=== PATIENT | female | born 1965 | race Caucasian/White ===

== ENCOUNTER 2017-07-30 12:17 | Emergency (ER) | payer MEDICARE, MEDICAID, SELFPAY ==
[2017-07-30 12:18] VITALS: BP 75/49; PULSE 59; RESP 14; TEMP 36.6; O2SAT 94; BMI 33.8
--- NOTE | 2017-07-30 12:44 | EKG12_ITS ---
Test Reason : LOW BP Blood Pressure : / mmHG Vent. Rate : 061 BPM Atrial Rate : 057 BPM P-R Int : 000 ms QRS Dur : 082 ms QT Int : 466 ms P-R-T Axes : 000 -14 040 degrees QTc Int : 469 ms Atrial fibrillation Abnormal ECG Confirmed by KILEY WAITE ([id number]), desk editor ROSEMARY JIMENEZ ([id number] on 08/13/2017 5:19:05 PM Referred By: PAUL/TEODORA Confirmed By:KILEY WAITE
[2017-07-30] MEDS: 0.9% Normal Saline 1,000 ML 1000 ML IV (12:52)
[2017-07-30 13:05] LABS: Absolute Lymphocyte Count 2.31 X10^3/ul (0.83-4.51); Absolute Neutrophil Count 10.7 X10^3/uL (2.0-7.7); Basophil# 0.03 X10^3/uL; Basophil% 0.2 % (0-1); Eosinophils% 0.7 % (0-5); Hematocrit 38.9 % (37-47); Hemoglobin 12.4 g/dl (12.0-15.0); Lymphocyte # 2.31 X10^3/ul (4.0); Mean Corp Hgb Conc 31.9 g/gl (32-36); Mean Corpuscular Hgb 27.4 pg (27.0-32.0); Mean Corpuscular Volume 86.1 fL (81-99); Mean Platelet Vol. 10.8 fl (6.2-12.0); Monocyte# 1.21 X10^3/uL; Monocyte% 8.4 % (0-10); Neutrophil # 10.69 X10^3/uL (2.7-7.7); Neutrophil % 74.2 % (47-70); POSITIVE COUNT NO; POSITIVE DIFFERENTIAL NO; POSITIVE MORPHOLOGY NO; Platelet Count 205 K/mm3 (150-450); RBC Distribution Width CV 14.5 % (11.6-14.6); RBC Distribution Width SD 44.8 fl (35.1-43.9); Red Blood Count 4.52 M/mm3 (4.2-5.4); White Blood Count 14.4 K/mm3 (4.4-11.0)
[2017-07-30 13:12] LABS: Anion Gap 10 (5-15); BUN 30 mg/dL (7-18); BUN/Creat Ratio 18.9 RATIO (10-20); Calcium,Total 8.3 mg/dL (8.5-10.1); Chloride 108 mmol/L (98-107); Creatinine, Serum 1.59 mg/dL (0.55-1.02); EST Glomerular Filtration Rate 36 mL/min (>60); Est Glom Filt Rate - Afr Amer 44 mL/min (>60); Estimated Creatinine Clearance 32.73 ml/min; Glucose 157 mg/dL (74-106); Potassium 3.7 mmol/L (3.5-5.1); Sodium Level 139 mmol/L (136-145)
[2017-07-30 13:36] LABS: Mucous, Urine 0 SEEN /hpf (<or=2+); Red Blood Cells-Urine 0 SEEN /hpf (0-5); White Blood Cells 0 SEEN /hpf (0-5)
[2017-07-30 13:38] LABS: Color, Urine Yellow (Yellow); Glucose, Dipstick Normal (Normal); Ketone-Dipstick Negative (Negative); Leukocyte Esterase-Dipstick 25 /ul (Negative); Nitrite-Dipstick Negative (Negative); Occult Blood-Urine 10 /ul (Negative); Protein-Dipstick Negative (Negative); Urine Bilirubin Dipstick Negative (Negative); Urine Clarity Sl. Cloudy (Clear); Urine Urobilinogen Normal (Normal)
[2017-07-30 13:42] VITALS: BP 96/53; PULSE 58; RESP 16
[2017-07-30] MEDS: 0.9% Normal Saline 1,000 ML 150 ML IV (13:42)
[2017-07-30 13:45] LABS: Bacteria 3+ /hpf (None Seen); Squamous Epithelial Cells - UA 0-5 SEEN /hpf (5-10)
--- NOTE | 2017-07-30 14:24 | NURSING ---
DR CARPENTER, [facility]. [phone]
[2017-07-30] MEDS: 0.9% Normal Saline 1,000 ML 999 ML IV (15:21)
[2017-07-30] MEDS: Nitrofurantoin Macrocrystals 100 MG Capsule PO (15:25)
--- NOTE | 2017-07-30 15:49 | ED.VISSUMM ---
- ER Visit Summary Date of Service: 07/30/17 Chief Complaint: Weakness, falls History of Present Illness: The patient is a 52 F who woke this morning and felt weak upon standing. She states she fell 3 times at home. She does not believe she passed out. She states this is consistent with her prior MS flares. She has not required steroids in several years. She denies recent illness. She has no UTI symptoms. There have been no recent changes in her medications. Physical Examination: Blood pressure 75/49, temperature 97.8, heart rate 59, respiratory rate 14, pulse ox 94% on room air. Patient's lying in bed no acute distress. She is alert and talkative. Head and neck examination is unremarkable. Heart is slightly irregular. Lung sounds are clear. Abdomen is soft and nontender. Active bowel sounds are noted throughout. Neuro exam reveals no focal neurologic deficits. Test Results: EKG is A. fib at [address] change. CBC was a white count of 14.4 with 74% neutrophils. Chemistry studies reveal glucose of 157, BUN of 30, creatinine 1.59. The last labs I have available to compare to are from 2-1/2 years ago at which time her creatinine was normal. Urinalysis was obtained via straight cath does reveal 3+ bacteria however no white cells or nitrites are noted. Emergency Department Course and Treatment: Patient was given IV fluid bolus on arrival. 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 She does not know what her baseline creatinine is. Patient blood pressure has remained in the upper 90s systolic after fluids. I spoke with , her MS doctor from [facility]. He recommends giving the patient 1 g of Solu-Medrol IV. If she is safe for discharge at that time she can be given a Medrol Dosepak and she will be covered with Macrobid while we are awaiting urine culture. On repeat evaluation patient's blood pressure is 101/60. She feels improved. She will be discharged with family at this time. Treatment Plan: [] Disposition: Discharge Impression: 1. Hypotension, improved 2. Cystitis 3. Multiple sclerosis This note was generated with Finelineation software. It may contain incorrect words, spelling, and punctuation that were not noted in review of the chart prior to signing ED Disposition - Plan for ED Patient: Disposition: Home or Assisted Living Chief Complaint: Hypotension Instructions: ED Hypotension All Causes, ED UTI Cystitis Female Prescriptions: MethylPREDNISolone DosePak [Medrol DosePak] 4 mg PO UD #1 box Nitrofurantoin Macrocrystals [Macrobid] 100 mg PO Q12 #10 cap Referrals: Ki Estevez MD [Primary Care Provider] - Additional Instructions: Follow-up with Dr Mcgrath in 1-2 weeks.
--- NOTE | 2017-07-30 15:52 | ED.DCSUM_ITS ---
- ER Visit Summary Date of Service: 07/30/17 Chief Complaint: Weakness, falls History of Present Illness: The patient is a 52 F who woke this morning and felt weak upon standing. She states she fell 3 times at home. She does not believe she passed out. She states this is consistent with her prior MS flares. She has not required steroids in several years. She denies recent illness. She has no UTI symptoms. There have been no recent changes in her medications. Physical Examination: Blood pressure 75/49, temperature 97.8, heart rate 59, respiratory rate 14, pulse ox 94% on room air. Patient's lying in bed no acute distress. She is alert and talkative. Head and neck examination is unremarkable. Heart is slightly irregular. Lung sounds are clear. Abdomen is soft and nontender. Active bowel sounds are noted throughout. Neuro exam reveals no focal neurologic deficits. Test Results: EKG is A. fib at [address] change. CBC was a white count of 14.4 with 74% neutrophils. Chemistry studies reveal glucose of 157, BUN of 30, creatinine 1.59. The last labs I have available to compare to are from 2-1/2 years ago at which time her creatinine was normal. Urinalysis was obtained via straight cath does reveal 3+ bacteria however no white cells or nitrites are noted. Emergency Department Course and Treatment: Patient was given IV fluid bolus on arrival. 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 She does not know what her baseline creatinine is. Patient blood pressure has remained in the upper 90s systolic after fluids. I spoke with , her MS doctor from [facility]. He recommends giving the patient 1 g of Solu-Medrol IV. If she is safe for discharge at that time she can be given a Medrol Dosepak and she will be covered with Macrobid while we are awaiting urine culture. On repeat evaluation patient's blood pressure is 101/60. She feels improved. She will be discharged with family at this time. Treatment Plan: [] Disposition: Discharge Impression: 1. Hypotension, improved 2. Cystitis 3. Multiple sclerosis This note was generated with Traxianation software. It may contain incorrect words, spelling, and punctuation that were not noted in review of the chart prior to signing ED Disposition - Plan for ED Patient: Disposition: Home or Assisted Living Chief Complaint: Hypotension Instructions: ED Hypotension All Causes, ED UTI Cystitis Female Prescriptions: MethylPREDNISolone DosePak [Medrol DosePak] 4 mg PO UD #1 box Nitrofurantoin Macrocrystals [Macrobid] 100 mg PO Q12 #10 cap Referrals: Ki Estevez MD [Primary Care Provider] - Additional Instructions: Follow-up with Dr Mcgrath in 1-2 weeks.
[2017-07-30 15:59] VITALS: BP 93/66; PULSE 59; RESP 16; O2SAT 95
--- NOTE | 2017-07-30 17:26 | ED.DEP ---
ED Disposition - Plan for ED Patient: Disposition: Home or Assisted Living Chief Complaint: Hypotension Instructions: ED Hypotension All Causes, ED UTI Cystitis Female Prescriptions: MethylPREDNISolone DosePak [Medrol DosePak] 4 mg PO UD #1 box Nitrofurantoin Macrocrystals [Macrobid] 100 mg PO Q12 #10 capsule Referrals: Ki Estevez MD [Primary Care Provider] - Additional Instructions: Follow-up with Dr Mcgrath in 1-2 weeks.
[2017-07-30 17:31] VITALS: BP 101/61; PULSE 54; RESP 16
== END 2017-07-30 17:33 | disposition home or self-care (01) ==
PROVIDERS: Emergency Provider Emergency Medicine; Family Provider Family Medicine; PCP Family Medicine
DX: I95.9 Hypotension, unspecified (principal); N30.90 Cystitis, unspecified without hematuria; G35 Multiple sclerosis; J44.9 Chronic obstructive pulmonary disease, unspecified; I35.0 Nonrheumatic aortic (valve) stenosis; N18.9 Chronic kidney disease, unspecified; Z79.51 Long term (current) use of inhaled steroids; Z79.1 Long term (current) use of non-steroidal anti-inflammatories (NSAID); Z79.899 Other long term (current) drug therapy
CPT/HCPCS: 80048; 81001; 85025; 87086; 87088; 87186; 93005; 99285; J7030; A4216; J2930

== ENCOUNTER 2017-09-25 12:54 | Emergency (ER) | payer MEDICARE, MEDICAID, SELFPAY ==
[2017-09-25 12:55] VITALS: BP 142/95; PULSE 79; RESP 18; TEMP 37.1; O2SAT 98; BMI 38.2
--- NOTE | 2017-09-25 13:25 | ED.VISSUMM ---
- ER Visit Summary Date of Service: 09/25/17 Chief Complaint: Dental pain History of Present Illness: The patient is a 52 F with left maxillary dental pain that started yesterday. No fever or other associated symptoms. She has noticed some left facial swelling. Physical Examination: Afebrile vitals unremarkable. Nontoxic and in no acute distress. Alert and oriented. Breathing is sitting comfortably. Left maxillary area shows some diffuse and trace swelling. No palpable induration or fluctuance. Gums are normal, but the patient is edentulous in the left maxillary region. No abscess noted. No trismus. No tongue elevation. Airway intact. No lymphadenopathy. No meningeal signs. Test Results: None indicated Emergency Department Course and Treatment: Patient treated with Pen-Branders.come K. Prescription database report was negative for opioids. She has no history of abuse. She was treated with a short course of [place]. Follow-up with dental. Treatment Plan: Discharged Disposition: Discharged Impression: 1. Dental pain This note was generated with Eduson dictation software. It may contain incorrect words, spelling, and punctuation that were not noted in review of the chart prior to signing ED Disposition - Plan for ED Patient: Chief Complaint: Cellulitis Referrals: Ki Estevez MD [Primary Care Provider] -
--- NOTE | 2017-09-25 13:29 | DCINST.ED_ITS ---
ED Disposition - Plan for ED Patient: Chief Complaint: Cellulitis Instructions: ED Tooth Pain Prescriptions: Hydrocodone Bitart/Apap 5-325 [[place] 5MG-325MG] 1 tab PO Q6H PRN PRN 3 Days #10 tab PRN Reason: Pain Penicillin V Potassium 500 mg PO 4X/DAY #40 tab
[2017-09-25] MEDS: Penicillin Vk 250 MG Tablet 500 MG PO (13:36)
== END 2017-09-25 13:39 | disposition home or self-care (01) ==
PROVIDERS: Emergency Provider Emergency Medicine; Family Provider Family Medicine; PCP Family Medicine
DX: K08.89 Other specified disorders of teeth and supporting structures (principal); Z72.0 Tobacco use
CPT/HCPCS: 99283

== ENCOUNTER 2017-09-26 12:19 | Emergency (ER) | payer MEDICARE, MEDICAID, SELFPAY ==
[2017-09-26 12:20] VITALS: BP 143/88; PULSE 82; RESP 16; TEMP 37.2; O2SAT 98; BMI 38.2
[2017-09-26] MEDS: Morphine 4 MG/ML Syringe IV (13:29)
[2017-09-26] MEDS: Ondansetron 4 MG/2 ML Vial IV (13:29)
[2017-09-26] MEDS: Ketorolac 15 MG/ML Vial IV (13:29)
[2017-09-26 13:42] LABS: Absolute Lymphocyte Count 2.65 X10^3/ul (0.83-4.51); Absolute Neutrophil Count 8.4 X10^3/uL (2.0-7.7); Basophil# 0.03 X10^3/uL; Basophil% 0.2 % (0-1); Eosinophils% 2.4 % (0-5); Hematocrit 44.3 % (37-47); Hemoglobin 13.6 g/dl (12.0-15.0); Lymphocyte # 2.65 X10^3/ul (4.0); Lymphocyte % 21.3 % (19-41); Mean Corp Hgb Conc 30.7 g/gl (32-36); Mean Corpuscular Hgb 27.4 pg (27.0-32.0); Mean Corpuscular Volume 89.3 fL (81-99); Mean Platelet Vol. 9.7 fl (6.2-12.0); Monocyte# 1.11 X10^3/uL; Monocyte% 8.9 % (0-10); Neutrophil # 8.36 X10^3/uL (2.7-7.7); Platelet Count 196 K/mm3 (150-450); RBC Distribution Width CV 14.2 % (11.6-14.6); RBC Distribution Width SD 46.2 fl (35.1-43.9); Red Blood Count 4.96 M/mm3 (4.2-5.4); White Blood Count 12.5 K/mm3 (4.4-11.0)
[2017-09-26 13:49] LABS: Anion Gap 5 (5-15); BUN 10 mg/dL (7-18); BUN/Creat Ratio 17.5 RATIO (10-20); Chloride 104 mmol/L (98-107); Creatinine, Serum 0.57 mg/dL (0.55-1.02); EST Glomerular Filtration Rate 118 mL/min (>60); Est Glom Filt Rate - Afr Amer 143 mL/min (>60); Estimated Creatinine Clearance 91.31 ml/min; Glucose 95 mg/dL (74-106); Potassium 4.1 mmol/L (3.5-5.1); Sodium Level 139 mmol/L (136-145)
[2017-09-26 13:51] LABS: POSITIVE COUNT NO; POSITIVE DIFFERENTIAL NO; POSITIVE MORPHOLOGY NO
[2017-09-26 14:25] VITALS: BP 138/75; PULSE 61; RESP 16; O2SAT 97
--- NOTE | 2017-09-26 15:18 | ED.DCSUM_ITS ---
- ER Visit Summary Date of Service: 09/26/17 Chief Complaint: Increased facial swelling History of Present Illness: The patient is a 52 F patient was seen yesterday and treated for dental pain. She was prescribed Pen-Vee K. Patient states she does not have a dentist. She denies a traumatic fever, murmur, SBE, IV drug use or being immune suppressed. There is a past medical history of hypertension. Her primary care physician has moved from the area. Physical Examination: Patient has left-sided facial swelling. She has numerous upper left teeth that are decayed to the gumline. There is inflammation of the gum. There is no area of fluctuance. There is no trismus. There is no dysphonia or dysphasia. There is no erythema of the face. Trach is midline. There is no stridor. There is no cervical lymphadenopathy. There is no preauricular lymphadenopathy. Heart is regular without murmur, gallop or rub. S1 and S2 are normal. Lungs are clear to auscultation with good movement of air bilaterally. Test Results: White count is slightly elevated at 12.5 with no shift. Blood work Emergency Department Course and Treatment: Patient was treated with 600 mg of clindamycin IV piggyback. CBC was obtained since she reports her symptoms are worse. Treatment Plan: Change antibiotic to clindamycin and prescription for pain medicine. She was given a sheet with dentist name for follow-up Disposition: Discharged to home Impression: 1. Dental abscess 2. Multiple dental caries with involvement of pulp This note was generated with OpenCurriculum dictation software. It may contain incorrect words, spelling, and punctuation that were not noted in review of the chart prior to signing White count is slightly elevated at 12.5 with no shift. Blood work ED Disposition - Plan for ED Patient: Disposition: Home or Assisted Living Chief Complaint: Cellulitis Instructions: Dental Abscess, ED Cavity Dental Prescriptions: Hydrocodone Bitart/Apap 5-325 [[place] 5MG-325MG] 1 - 2 tablet PO Q4H PRN PRN #10 tablet PRN Reason: Pain Naproxen [Naprosyn] 500 mg PO BID #14 tab Clindamycin HCl 300 mg PO 4X/DAY #30 cap Referrals: Ki Estevez MD [Primary Care Provider] - Additional Instructions: 1. Take clindamycin until gone. Discontinue penicillin. 2. If you are unable to open your mouth completely, drooling or temperature greater than 100.5 return to the emergency department 3. Your prescription was electronically transmitted to your preferred pharmacy.
[2017-09-26 15:35] VITALS: BP 131/83; PULSE 61; RESP 16; O2SAT 95
== END 2017-09-26 15:40 | disposition home or self-care (01) ==
PROVIDERS: Emergency Provider Emergency Medicine; Family Provider Family Medicine; PCP Family Medicine
DX: K04.7 Periapical abscess without sinus (principal); K02.9 Dental caries, unspecified; E66.9 Obesity, unspecified; I10 Essential (primary) hypertension
CPT/HCPCS: 80048; 85025; 99283; J2405

== ENCOUNTER → 2017-12-27 08:09 | Outpatient (CLI) | payer MEDICARE, MEDICAID, SELFPAY ==
--- NOTE | 2017-12-27 08:23 | RAD_ITS ---
STUDY: X-RAY CHEST REASON FOR EXAM: Female, 52 years old. Dyspnea and shortness of breath. TECHNIQUE: PA and lateral views of the chest. COMPARISON: Comparison is made with prior examination dated February 03, 2015. FINDINGS: Mild elevation of the right hemidiaphragm. The previously seen right lower lobe infiltrate has cleared. There is no demonstrated pleural abnormality. Normal size heart. Normal mediastinum and laura. Normal visualized pulmonary arteries. Normal visualized aortic arch and descending thoracic aorta. There are diffuse degenerative changes of the visualized thoracic spine. Normal visualized ribs, clavicles, and shoulders. There is no demonstrated abnormality of the visualized soft tissue structures of the upper abdomen. RAD/Chest PA and Lateral IMPRESSION: No acute abnormality is seen. Electronically Signed: Christian Gill MD at 15:36 EDT Tel [phone], Service support ,
[2017-12-27 08:24] VITALS: PULSE 101; PULSE 103; PULSE 104; PULSE 80; PULSE 84; PULSE 85; PULSE 98; PULSE 99; O2SAT 96; O2SAT 97; O2SAT 98
--- NOTE | 2017-12-28 12:28 | PCM.PSN.6M ---
PSN 6 Minute Walk Test - 6 Minute Walk Test 6 Minute Walk Test: 6 Minute Walk Test PSN:6-Minute Walk Test Start: 12/27/17 08:24 Freq: Status: Active Protocol: RESP.6MINW Document 12/27/17 08:24 JLA (Rec: 12/27/17 08:27 JLA [id number]) 6 Minute Walk Test Date Performed 12/27/17 Time Performed 08:10 Height 5 ft 2 in Weight: 212 lb 6.08 oz Weight in Pounds 212.[address]: Rylan Mazariegos Assistive device used: None Pre-test Oxygen Delivery Method Room Air Pulse Ox (%) 97 Pulse Rate (60-100 beats/min) 85 Dyspnea Miranda Scale (0-10) 1 Exertion Miranda Scale (6-20) 6 1st minute Oxygen Delivery Method Room Air Pulse Ox (%) 96 Pulse Rate (60-100 beats/min) 98 2nd minute Oxygen Delivery Method Room Air Pulse Ox (%) 96 Pulse Rate (60-100 beats/min) 99 3rd minute Oxygen Delivery Method Room Air Pulse Ox (%) 96 Pulse Rate (60-100 beats/min) 104 H 4th minute Oxygen Delivery Method Room Air Pulse Ox (%) 96 Pulse Rate (60-100 beats/min) 103 H 5th minute Oxygen Delivery Method Room Air Pulse Ox (%) 96 Pulse Rate (60-100 beats/min) 101 H 6th minute Oxygen Delivery Method Room Air Pulse Ox (%) 97 Pulse Rate (60-100 beats/min) 84 Dyspnea Miranda Scale (0-10) 2 Exertion Miranda Scale (6-20) 13 Post-test Oxygen Delivery Method Room Air Pulse Ox (%) 98 Pulse Rate (60-100 beats/min) 80 Full Laps Walked 20 Partial Lap, Number of Tiles Walked 39 Total Distance Walked (ft) 1219 - Interpretation Interpretation: The patient ambulated 1219 feet over the course of 6 minutes beginning on room air without assistive devices or breaks. Pretesting oxygen saturation was noted to be 97% on room air. With ambulation, the theresa oxygen saturation was 96%. There was no significant exertional oxygen desaturation. - Recommendations Recommendations: There is no indication for the use of supplemental oxygen at this time.
== END ==
PROVIDERS: Family Provider Family Medicine; PCP Family Medicine; Referring Provider Internal Medicine Critical Care Medicine; Visit Provider Internal Medicine Critical Care Medicine
DX: Z77.090 Contact with and (suspected) exposure to asbestos (principal); R06.09 Other forms of dyspnea
CPT/HCPCS: 71046; 94618

== ENCOUNTER → 2018-01-25 09:49 | Outpatient (CLI) | payer MEDICARE, SELFPAY ==
--- NOTE | 2018-01-26 08:28 | PFT ---
INTRODUCTION: The patient is a 52-year-old female that presents for pulmonary function testing secondary to a diagnosis of dyspnea. Respiratory therapy reports good patient effort. Bronchodilators were used during testing. INTERPRETATION: Forced expiration spirometry demonstrates no evidence of a large airways obstructive ventilatory defect. There was no significant response to aerosolized bronchodilators, based upon strict ATS criteria. Spirograms are of good quality and plateau normally. The respiratory flow volume loop appears normal. Body plethysmography was performed and reveals lung volumes to be within normal limits. Diffusing capacity by single breath CO is at the lower limits of normal. IMPRESSION: Essentially normal pulmonary function testing.
== END ==
PROVIDERS: Family Provider Family Medicine; PCP Family Medicine; Referring Provider Internal Medicine Critical Care Medicine; Visit Provider Internal Medicine Critical Care Medicine
DX: R06.09 Other forms of dyspnea (principal)
CPT/HCPCS: 94060; 94726; 94729

== ENCOUNTER 2018-02-05 11:37 | Emergency (ER) | payer MEDICARE, MEDICAID, SELFPAY ==
[2018-02-05 11:38] VITALS: BP 132/76; PULSE 94; RESP 18; TEMP 36.7; O2SAT 97; BMI 38.4
--- NOTE | 2018-02-05 11:58 | ED.DCSUM_ITS ---
- ER Visit Summary Date of Service: 02/05/18 Chief Complaint: Productive cough of green sputum with fever and nausea, vomiting and diarrhea. History of Present Illness: The patient is a 52 F past medical history of A. fib, seizures and valvular heart disease. Prior hysterectomy. Patient states for about the last 6-day starting last she started getting a cough with congestion green sputum. Now has developed nausea, vomiting diarrhea in the last 4 hours. Denies any dysuria. No shortness of breath. Feels dehydrated. Denies any abdominal pain. Physical Examination: Middle-aged female. No acute distress. Vital signs are stable afebrile. Pulse ox 97% on room air no hypoxia. HEENT exam dry mucous membranes. TMs normal. Posterior pharynx unremarkable. Neck nontender. No lymphadenopathy. No meningismus. Lungs coarse breath sounds but no rales, rhonchi or wheezing. Dry cough. Heart regular rate and rhythm rate about 90. No murmur. Abdomen soft and nontender. Normal bowel sounds no peritoneal signs. Patient is moving all 4 extremities. They are neurovascularly intact. Calves are nontender without edema or cords. Skin is without rashes. Back is nontender. Neurologically she is awake and alert without focal motor deficits. Test Results: Two-view chest x-ray shows no acute abnormality read by myself. No infiltrate. Normal cardiac silhouette. BMP shows a mild hypokalemia at 3.4 otherwise unremarkable. Emergency Department Course and Treatment: Patient treated with 1 L normal saline IV. On repeat exam patient doing well at 1300. I went over her test results with her. She will be written for a work excuse and Zofran as needed for nausea. Treatment Plan: Fluids and rest. Follow-up with your doctor if not improving. Disposition: Discharge Impression: Acute viral syndrome Mild dehydration This note was generated with Intelligent InSites dictation software. It may contain incorrect words, spelling, and punctuation that were not noted in review of the chart prior to signing ED Disposition - Plan for ED Patient: Disposition: Home or Assisted Living Chief Complaint: General Illness Instructions: ED Viral Syndrome Prescriptions: Ondansetron [Zofran Odt] 4 mg PO Q4H PRN PRN #7 tab.rapdis PRN Reason: Nausea Referrals: Ki Estevez MD [Primary Care Provider] - Additional Instructions: Zofran as needed for nausea. Plenty of fluids and rest. Increase diet slowly. Alternate Tylenol and Motrin for fever. Follow-up with your doctor if not improving or return if feeling a lot worse. Off work next 2 days.
[2018-02-05] MEDS: 0.9% Normal Saline 1,000 ML 1000 ML IV (12:00)
--- NOTE | 2018-02-05 12:03 | DCINST.ED_ITS ---
ED Disposition - Plan for ED Patient: Disposition: Home or Assisted Living Chief Complaint: General Illness Instructions: ED Viral Syndrome Prescriptions: Ondansetron [Zofran Odt] 4 mg PO Q4H PRN PRN #7 tab.rapdis PRN Reason: Nausea Referrals: Ki Estevez MD [Primary Care Provider] - Additional Instructions: Zofran as needed for nausea. Plenty of fluids and rest. Increase diet slowly. Alternate Tylenol and Motrin for fever. Follow-up with your doctor if not improving or return if feeling a lot worse. Off work next 2 days.
--- NOTE | 2018-02-05 12:20 | RAD_ITS ---
STUDY: X-RAY CHEST REASON FOR EXAM: Female, 52 years old. Cough, fever and vomiting. TECHNIQUE: PA and lateral views of the chest. COMPARISON: None. FINDINGS: Mild elevation of the right hemidiaphragm unchanged. The lungs are otherwise clear and expanded. There is no demonstrated pleural abnormality. Normal size heart. Normal mediastinum and laura. Normal visualized pulmonary arteries. Normal visualized aortic arch and descending thoracic aorta. There are diffuse degenerative changes of the visualized thoracic spine. Slight right lateral wedging of the T7 vertebra and borderline left lateral wedging of T6 unchanged. Normal visualized ribs, clavicles, and shoulders. There is no demonstrated abnormality of the visualized soft tissue structures of the upper abdomen. RAD/Chest PA and Lateral IMPRESSION: No acute cardiopulmonary disease. Electronically Signed: Levi Hernández MD at 13:22 EST , Service support ,
[2018-02-05 12:30] LABS: Anion Gap 10 (5-15); BUN 13 mg/dL (7-18); BUN/Creat Ratio 21.1 RATIO (10-20); Calcium,Total 8.5 mg/dL (8.5-10.1); Chloride 105 mmol/L (98-107); Creatinine, Serum 0.62 mg/dL (0.55-1.02); EST Glomerular Filtration Rate 108 mL/min (>60); Est Glom Filt Rate - Afr Amer 131 mL/min (>60); Estimated Creatinine Clearance 83.95 ml/min; Glucose 163 mg/dL (74-106); Potassium 3.4 mmol/L (3.5-5.1); Sodium Level 140 mmol/L (136-145)
[2018-02-05 13:21] VITALS: BP 126/79; PULSE 65; RESP 16; O2SAT 98
== END 2018-02-05 13:22 | disposition home or self-care (01) ==
PROVIDERS: Emergency Provider Emergency Medicine; Family Provider Family Medicine; PCP Family Medicine
DX: B34.9 Viral infection, unspecified (principal); E86.0 Dehydration; I48.91 Unspecified atrial fibrillation; G40.909 Epilepsy, unspecified, not intractable, without status epilepticus; Z72.0 Tobacco use; Z90.710 Acquired absence of both cervix and uterus
CPT/HCPCS: 71046; 80048; 96360; 99284; J7030; A4216

== ENCOUNTER 2018-04-23 16:18 | Emergency (ER) | payer MEDICARE, MEDICAID, SELFPAY ==
[2018-02-11 07:30] VITALS: BMI 38.4
[2018-04-23 16:19] VITALS: BP 153/82; PULSE 97; RESP 20; TEMP 37.5; O2SAT 96; BMI 38.4
--- NOTE | 2018-04-23 16:41 | ED.DCSUM_ITS ---
- ER Visit Summary Date of Service: 04/23/18 Chief Complaint: Nausea, vomiting and diarrhea History of Present Illness: The patient is a 52 F history of prior A. fib, hypertension, renal insufficiency and asthma. Patient is on no blood thinners. States yesterday started having nausea, vomiting and diarrhea. Fever as high as 1014. No significant abdominal pain. Denies melena. No recent hospitalization. Physical Examination: Middle-aged female. No acute distress. Vital signs are stable. Temperature 99.5. Patient does not look septic or toxic. H EENT exam mild dry his membranes. Otherwise unremarkable. No facial droop or trauma. Normal speech. Neck nontender. No meningismus. No lymphadenopathy. Able to touch chin to chest. Lungs clear to auscultation bilaterally. Heart regular rate and rhythm no murmur rate about 95. Abdomen soft. Nontender. Normal bowel sounds. No peritoneal signs. No right upper right. Soft. Moving all 4 extremities. Neurovascular intact. Calves nontender without edema nor cords. Back nontender. No CVA tenderness. Skin no rashes. No petechiae or purpura. Neurologically she is awake alert with no focal motor deficits. Test Results: BMP shows potassium 3.1. Normal BUN, creatinine and gap. Emergency Department Course and Treatment: Patient treated with a liter of normal saline. IV Zofran. Treatment Plan: Zofran for nausea. Plenty of fluids and rest. Follow-up with primary care physician if not improving or return to the ER feeling worse. Repeat exam at 1823 PM patient is doing well. She is feeling better after IV fluids. She was able to hold down p.o. fluids. She and I discussed her test results and diagnosis. Disposition: Discharge Impression: Acute viral gastroenteritis with nausea, vomiting and diarrhea Mild dehydration This note was generated with [employer] dictation software. It may contain incorrect words, spelling, and punctuation that were not noted in review of the chart prior to signing ED Disposition - Plan for ED Patient: Disposition: Home or Assisted Living Instructions: ED Gastroenteritis Viral Prescriptions: Ondansetron [Zofran Odt] 4 mg PO Q8H PRN PRN #7 tab PRN Reason: Nausea Referrals: Ki Estevez MD [Primary Care Provider] - Additional Instructions: Fluids and rest. Zofran as needed for nausea. Return if feeling worse. Follow-up your primary care physician if not improving.
--- NOTE | 2018-04-23 16:44 | DCINST.ED_ITS ---
ED Disposition - Plan for ED Patient: Disposition: Home or Assisted Living Instructions: ED Gastroenteritis Viral Prescriptions: Ondansetron [Zofran Odt] 4 mg PO Q8H PRN PRN #7 tab PRN Reason: Nausea Referrals: Ki Estevez MD [Primary Care Provider] - Additional Instructions: Fluids and rest. Zofran as needed for nausea. Return if feeling worse. Follow-up your primary care physician if not improving.
[2018-04-23] MEDS: 0.9% Normal Saline 1,000 ML 1000 ML IV (17:04)
[2018-04-23] MEDS: Ondansetron 4 MG/2 ML Vial IV (17:04)
[2018-04-23 17:28] LABS: Anion Gap 11 (5-15); BUN 13 mg/dL (7-18); BUN/Creat Ratio 23.9 RATIO (10-20); Calcium,Total 8.2 mg/dL (8.5-10.1); Chloride 102 mmol/L (98-107); Creatinine, Serum 0.54 mg/dL (0.55-1.02); EST Glomerular Filtration Rate 124 mL/min (>60); Est Glom Filt Rate - Afr Amer 150 mL/min (>60); Estimated Creatinine Clearance 96.39 ml/min; Glucose 98 mg/dL (74-106); Potassium 3.1 mmol/L (3.5-5.1); Sodium Level 136 mmol/L (136-145)
[2018-04-23 18:18] VITALS: BP 118/70; PULSE 70; RESP 16; O2SAT 94
[2018-04-23 18:40] VITALS: BP 118/70; PULSE 74; RESP 16; O2SAT 94
== END 2018-04-23 18:41 | disposition home or self-care (01) ==
LOC: ED 16:50
PROVIDERS: Emergency Provider Emergency Medicine; Family Provider Family Medicine; PCP Family Medicine
DX: E86.0 Dehydration (principal); A08.4 Viral intestinal infection, unspecified; I48.91 Unspecified atrial fibrillation; I10 Essential (primary) hypertension; J45.909 Unspecified asthma, uncomplicated; Z72.0 Tobacco use
CPT/HCPCS: 80048; 96361; 96374; 99283; J7030; J2405

== ENCOUNTER → 2018-12-06 10:46 | Outpatient (CLI) | payer MEDICARE, SELFPAY ==
[2018-09-30 13:02] VITALS: BMI 38.4
[2018-12-06 11:16] VITALS: PULSE 0; PULSE 100; PULSE 102; PULSE 103; PULSE 105; PULSE 70; PULSE 85; O2SAT 64; O2SAT 96; O2SAT 97; O2SAT 98
--- NOTE | 2018-12-06 13:07 | WT_ITS ---
PSN 6 Minute Walk Test - 6 Minute Walk Test 6 Minute Walk Test: 6 Minute Walk Test PSN:6-Minute Walk Test Start: 12/06/18 11:16 Freq: Status: Active Protocol: RESP.6MINW Document 12/06/18 11:16 [facility] (Rec: 12/06/18 11:18 [facility] [id number]) 6 Minute Walk Test Date Performed 12/06/18 Time Performed 11:00 Height 5 ft 2 in Weight: 98.883 kg Weight in Pounds 218.[address]: Lety Jarquin Assistive device used: None Pre-test Oxygen Delivery Method Room Air Pulse Ox (%) 64 Pulse Rate (60-100 beats/min) 0 L 1st minute Oxygen Delivery Method Room Air Pulse Ox (%) 98 Pulse Rate (60-100 beats/min) 85 Dyspnea Miranda Scale (0-10) 1 2nd minute Oxygen Delivery Method Room Air Pulse Ox (%) 96 Pulse Rate (60-100 beats/min) 100 Dyspnea Miranda Scale (0-10) 1 3rd minute Oxygen Delivery Method Room Air Pulse Ox (%) 97 Pulse Rate (60-100 beats/min) 103 H Dyspnea Miranda Scale (0-10) 2 Reported Symptoms Increased Work of Breathing 4th minute Oxygen Delivery Method Room Air Pulse Ox (%) 97 Pulse Rate (60-100 beats/min) 105 H Dyspnea Miranda Scale (0-10) 2 Reported Symptoms Increased Work of Breathing 5th minute Oxygen Delivery Method Room Air Pulse Ox (%) 97 Pulse Rate (60-100 beats/min) 102 H Dyspnea Miranda Scale (0-10) 2 Reported Symptoms Increased Work of Breathing 6th minute Oxygen Delivery Method Room Air Pulse Ox (%) 98 Pulse Rate (60-100 beats/min) 100 Dyspnea Miranda Scale (0-10) 2 Reported Symptoms Increased Work of Breathing Post-test Oxygen Delivery Method Room Air Pulse Ox (%) 98 Pulse Rate (60-100 beats/min) 70 Dyspnea Miranda Scale (0-10) 0 Full Laps Walked 18 Partial Lap, Number of Tiles Walked 42 Total Distance Walked (ft) 1104 - Interpretation Interpretation: The patient was able to ambulate 1104 feet over the course of 6 minutes on room air with no assistive device or breaks. No significant desaturation was noted, but patient did have tachycardia as high as 105 bpm indicating deconditioning. - Recommendations Recommendations: No supplemental oxygen is indicated at this time.
== END ==
PROVIDERS: Family Provider Family Medicine; PCP Family Medicine; Referring Provider Nurse Practitioner Acute Care; Visit Provider Nurse Practitioner Acute Care
DX: J44.9 Chronic obstructive pulmonary disease, unspecified (principal)
CPT/HCPCS: 94618

== ENCOUNTER → 2018-12-10 10:53 | Outpatient (CLI) | payer MEDICARE, SELFPAY ==
[2018-09-30 13:02] VITALS: BMI 38.4
--- NOTE | 2018-12-11 09:32 | PFT ---
INTRODUCTION: The patient is a 53-year-old female that presents for pulmonary function studies secondary to a diagnosis of COPD. Respiratory therapy reports good patient effort. Bronchodilators were used during testing. INTERPRETATION: Forced expiration spirometry demonstrates no evidence of a large airways obstructive ventilatory defect. There was no significant response to aerosolized bronchodilators. Spirograms are of good quality and plateau normally. Body plethysmography was performed and reveals lung volumes to be within normal limits. Diffusing capacity by single breath CO is reduced to 59% of predicted. When compared to pulmonary function studies from January 2018, there has been a 12% reduction in DLCO. IMPRESSION: Isolated moderate reduction in diffusing capacity.
== END ==
PROVIDERS: Family Provider Family Medicine; PCP Family Medicine; Referring Provider Nurse Practitioner Acute Care; Visit Provider Nurse Practitioner Acute Care
DX: J44.9 Chronic obstructive pulmonary disease, unspecified (principal)
CPT/HCPCS: 94060; 94726; 94729

== ENCOUNTER → 2019-03-11 10:32 | Outpatient (CLI) | payer MEDICARE, SELFPAY ==
[2019-01-08 15:14] VITALS: BMI 40.2
[2019-03-11 12:36] LABS: Erythrocyte Sedimentation Rate 13 mm/hr (0-30)
[2019-03-11 13:01] LABS: CRP < 2.90 mg/L (0.0-3.0); Rheumatoid Factor < 10.0 IU/mL (<15)
[2019-03-12 17:55] LABS: ANTINUCLEAR ANTIBODIES DIRECT Negative (Negative)
== END ==
PROVIDERS: Family Provider Family Medicine; PCP Family Medicine; Referring Provider Family Medicine; Visit Provider Family Medicine
DX: M13.0 Polyarthritis, unspecified (principal)
CPT/HCPCS: 36415; 85652; 86038; 86140; 86431

== ENCOUNTER → 2019-04-21 13:09 | Outpatient (CLI) | payer MEDICARE, SELFPAY ==
[2019-01-08 15:14] VITALS: BMI 40.2
--- NOTE | 2019-04-21 13:15 | MRI_ITS ---
STUDY: MRI BRAIN WITH AND WITHOUT CONTRAST REASON FOR EXAM: Female, 53 years old. 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 IV dotarem 20ml was administered for the contrast portion of the examination. COMPARISON: None. FINDINGS: Normal size of the ventricles and extra-axial spaces for the patient''s age. No change in the confluent hyperintensities of the periventricular white matter consistent with known demyelinating disease (multiple sclerosis) stenosis. No enhancing plaque. There is no evidence for recent intracranial ischemia or other cause of cytotoxic edema on diffusion weighted imaging (DWI). Normal bilateral basal ganglia. Normal thalami. There is no extra-axial fluid accumulation. Normal flow voids within the major intracranial circulation suggesting patency by spin echo criteria. Normal venous enhancement. There is no enhancing intra-axial or extra-axial abnormality. Normal sella turcica, pituitary gland, infundibular stalk, optic chiasm and hypothalamus. Normal tectal plate and pineal gland. Normal midbrain, vernell and medulla. Normal cerebellum. Normal basal cisterns. Normal bilateral temporal bones. Normal bilateral internal auditory canals. No demonstrated orbital abnormality, within the constraints of a routine brain study. Normal visualized paranasal sinuses. Normal calvarium and skull base. Normal visualized soft tissue structures. Normal visualized upper cervical spine. MRI/Brain W/WO Contrast IMPRESSION: No change in known demyelinating disease (multiple sclerosis). No enhancement. Electronically Signed: Junior Andrews MD at 16:39 EST Tel , Service support ,
[2019-04-21 14:30] LABS: Anion Gap 3 (5-15); BUN 24 mg/dL (7-18); BUN/Creat Ratio 33.1 RATIO (10-20); Calcium,Total 9.2 mg/dL (8.5-10.1); Chloride 105 mmol/L (98-107); Creatinine, Serum 0.72 mg/dL (0.55-1.02); EST Glomerular Filtration Rate 89 mL/min (>60); Est Glom Filt Rate - Afr Amer 108 mL/min (>60); Glucose 102 mg/dL (74-106); Potassium 3.9 mmol/L (3.5-5.1); Sodium Level 138 mmol/L (136-145)
== END ==
PROVIDERS: PCP Family Medicine
DX: G35 Multiple sclerosis (principal); Z79.899 Other long term (current) drug therapy
CPT/HCPCS: 36415; 70553; 80048

== ENCOUNTER → 2019-08-20 08:47 | Outpatient (CLI) | payer MEDICARE, SELFPAY ==
[2019-08-20 08:41] VITALS: BMI 40.2
--- NOTE | 2019-08-20 08:48 | RAD_ITS ---
STUDY: X-RAY - LEFT KNEE REASON FOR EXAM: Female, 54 years old. Chronic bilateral knee pain, recently left knee gave out and patient fell TECHNIQUE: 4 view(s) of the knee. COMPARISON: None. FINDINGS: Normal visualized distal femur. Normal visualized proximal tibia and fibula. Normal proximal tibiofibular articulation. There is mild degenerative arthrosis of the medial femorotibial compartment. Normal lateral femorotibial compartment. There is mild degenerative arthrosis of the patellofemoral articulation. Small joint effusion. RAD/Knee 4 or More Views IMPRESSION: Degenerative arthrosis. Small joint effusion. Electronically Signed: Christian Gill, at 9:24 EDT , Service support ,
--- NOTE | 2019-08-20 08:48 | RAD_ITS ---
STUDY: X-RAY - RIGHT KNEE REASON FOR EXAM: Female, 54 years old. Chronic bilateral knee pain, recently left knee gave out and patient fell TECHNIQUE: 4 view(s) of the knee. COMPARISON: None. FINDINGS: Degenerative spurring is seen along the medial femoral condyle. Normal visualized proximal tibia and fibula. Normal proximal tibiofibular articulation. There is moderate degenerative arthrosis of the medial femorotibial compartment with moderate joint space narrowing. Normal lateral femorotibial compartment. There is mild degenerative arthrosis of the patellofemoral articulation. Small joint effusion. RAD/Knee 4 or More Views IMPRESSION: Degenerative arthrosis. Small joint effusion. Electronically Signed: Christian Gill, at 9:23 EDT , Service support ,
== END ==
PROVIDERS: PCP Family Medicine; Referring Provider Orthopaedic Surgery; Visit Provider Orthopaedic Surgery
DX: M25.561 Pain in right knee (principal); M25.562 Pain in left knee
CPT/HCPCS: 73564

== ENCOUNTER 2019-11-29 15:59 | Emergency (ER) | payer MEDICARE, SELFPAY ==
[2019-10-01 08:21] VITALS: BMI 40.2
[2019-11-29] VITALS (9 sets, daily range): BP systolic 145–157; BP diastolic 93–98; PULSE 82–97; RESP 18–24; TEMP 36.6; O2SAT 93–97; BMI 44.8
--- NOTE | 2019-11-29 16:26 | EKG12_ITS ---
Test Reason : SOB Blood Pressure : / mmHG Vent. Rate : 065 BPM Atrial Rate : 065 BPM P-R Int : 160 ms QRS Dur : 082 ms QT Int : 418 ms P-R-T Axes : 054 -28 041 degrees QTc Int : 434 ms Normal sinus rhythm Normal ECG Confirmed by JAGDEEP FARRELL, DONG ([id number]), associate entertainment editor ROSEMARY JIMENEZ ([id number] on 12/04/2019 1:46:57 PM Referred By: AP Confirmed By:DARA GANNON MD
[2019-11-29] MEDS: Ipratropium/Albuterol Sulfate 3 ML AMPUL.NEB INHALATION (16:41)
[2019-11-29] MEDS: Albuterol 2.5 MG/3 ML VIAL.NEB. INHALATION ×3 (16:48→17:27)
[2019-11-29] MEDS: MethylPREDNISolone 125 MG/2 ML Vial IV (17:12)
--- NOTE | 2019-11-29 17:25 | RAD_ITS ---
STUDY: X-RAY CHEST REASON FOR EXAM: Female, 54 years old. increased shortness of breath and cough, Hx asthma TECHNIQUE: Single AP portable view of the chest. COMPARISON: Prior study of 02/05/2018 FINDINGS: manager housekeeping leads are present. The lungs are clear and expanded. There is no demonstrated pleural abnormality. Normal size heart. Normal mediastinum and laura. Normal visualized pulmonary arteries. Normal visualized aortic arch and descending thoracic aorta. There is endplate spondylosis of the thoracic spine. Normal visualized ribs, clavicles, and shoulders. There is no demonstrated abnormality of the visualized soft tissue structures of the upper abdomen. RAD/Chest 1 View (Portable) IMPRESSION: Endplate spondylosis of the thoracic spine. No acute cardiopulmonary disease process is seen. Electronically Signed: Kirill Culver MD at 17:40 EDT , Service support ,
--- NOTE | 2019-11-29 17:58 | ED.DCSUM_ITS ---
History of Present Illness Informant: Patient Onset: Yesterday Activity at onset: Exertion, Light Activity, Rest Timing: Continuous Quality: Dyspnea on exertion, Wheezing Current Severity: Severe Maximum Severity: Severe Worsened by: Coughing, Exertion Relieved by: Albuterol Associated Symptoms: Cough, Post-nasal drainage, Rhinorrhea. Negative for: Bloody Sputum, Chills, Clear sputum, Ear pain, Fever, Green sputum, Sore throat, Sweats, White sputum, Yellow sputum Chest Pain: None Narrative: 54-year-old female history of asthma presents with shortness of breath dyspnea on exertion cough and wheezing. She has not had a fever. She has no chest pain. She has not lightheaded or dizzy. No leg pain or swelling. No recent travel or surgery. No history of DVT or PE. tested negative for coronavirus earlier this week. Denies sick contacts. She has not used any of her inhalers or nebulizers today. She feels like her asthma has been flaring up due to her allergies. PE Risk Factors: Negative for: Cancer, OCP + Smoking + > 35, Prior DVT or PE, Recent immobilization, Recent surgery, Recent travel Prior similar symptoms: Yes Recent Illness/Hospitalization: No <Yuriy Baugh - Last Filed: 11/29/19 17:58> <Jacob Page - Last Filed: 11/29/19 18:18> Chief Complaint: Shortness of Breath Past Medical History Prior records reviewed: Yes Past Medical History: - - Asthma, seizures, hypertension Surgical History: hysterectomy, tonsillectomy Smoking Status: Current some day smoker Alcohol: None Drugs: None - Family History Maternal Family History: Family History (Last Reviewed 10/01/19 @ 08:20 by Gilma Stoner) Mother Myocardial infarction Hypertension Breast cancer Father CVA (cerebral vascular accident) Myocardial infarction Diabetes CAD (coronary artery disease) Brother CVA (cerebral vascular accident) CAD (coronary artery disease) Sister Afib Family History: Reports: Heart Disease Paternal Family History: Family History (Last Reviewed 10/01/19 @ 08:20 by Gilma Stoner) Mother Myocardial infarction Hypertension Breast cancer Father CVA (cerebral vascular accident) Myocardial infarction Diabetes CAD (coronary artery disease) Brother CVA (cerebral vascular accident) CAD (coronary artery disease) Sister Afib Family History: Reports: Heart Disease <Yuriy Baugh - Last Filed: 11/29/19 17:58> - Family History Maternal Family History: Family History (Last Reviewed 10/01/19 @ 08:20 by Gilma Stoner) Mother Myocardial infarction Hypertension Breast cancer Father CVA (cerebral vascular accident) Myocardial infarction Diabetes CAD (coronary artery disease) Brother CVA (cerebral vascular accident) CAD (coronary artery disease) Sister Afib Paternal Family History: Family History (Last Reviewed 10/01/19 @ 08:20 by Gilma Stoner) Mother Myocardial infarction Hypertension Breast cancer Father CVA (cerebral vascular accident) Myocardial infarction Diabetes CAD (coronary artery disease) Brother CVA (cerebral vascular accident) CAD (coronary artery disease) Sister Afib <Jacob Page - Last Filed: 11/29/19 18:18> - Allergies and Home Meds Allergies/Adverse Reactions: Allergies lorazepam [From Ativan] Adverse Reaction (Severe, Verified 10/01/19 08:20) Other SEDATES CANT WAKE ME UP Primary Care Physician: Satya Tinoco MD [Primary Care Provider] - Review of Systems General: Denies: Chills, Fever, Sweats Eyes: Denies: Visual changes - bilaterally, Diplopia ENT: Reports: Rhinorrhea. Denies: Bilateral ear pain, Sore throat Cardiovascular: Denies: Chest pain, Palpitations, Heart racing Respiratory: Reports: Dyspnea, Cough, Sputum, Dyspnea on exertion. Denies: Orthopnea, Paroxysmal nocturnal dyspnea Gastrointestinal: Denies: Abdominal pain, Nausea, Vomiting, Diarrhea, Melena, Hematochezia Genitourinary: Denies: Dysuria, Hematuria, Frequency Musculoskeletal: Denies: Back pain, Extremity Pain Skin: Denies: Rash, Wounds Neurological: Denies: Headache, Weakness, Numbness <Yuriy Baugh - Last Filed: 11/29/19 17:58> Physical Exam Vital Signs/Narrative: Vital Signs Temp Pulse Resp BP Pulse Ox 11/29/19 17:26 90 19 H 93 11/29/19 17:16 82 22 H 145/93 H 11/29/19 17:00 89 20 H 94 11/29/19 16:40 84 22 H 93 11/29/19 16:26 98 F 89 22 H 145/93 H 95 11/29/19 15:59 97.8 F 85 24 H 157/94 H 97 Inital Vital Signs reviewed: Yes General: Well nourished, Well developed, No Acute Distress Head: Normocephalic, Atraumatic Eyes: Perrl, EOMI ENT: Moist mucous membranes, No rhinorrhea Neck: Supple, Nontender Cardiovascular: Regular rate, Regular rhythm, No murmurs Respiratory: No distress, Chest nontender, Wheezing, Diminished, Decreased Air Movement Abdomen: Soft, Nontender, Nondistended, Normal bowel sounds Back: Nontender, Normal Inspection Extremities: Nontender, No edema Skin: Normal color, No rash Neurological: Alert, Oriented x3, Cranial nerves II-XII grossly intact, Normal Strength, Normal Sensation Psychological: Normal affect, Normal Mood <Yuriy Baugh - Last Filed: 11/29/19 17:58> Vital Signs/Narrative: Vital Signs Temp Pulse Resp BP Pulse Ox 11/29/19 17:26 90 19 H 93 11/29/19 17:16 82 22 H 145/93 H 11/29/19 17:00 89 20 H 94 11/29/19 16:40 84 22 H 93 11/29/19 16:26 98 F 89 22 H 145/93 H 95 11/29/19 15:59 97.8 F 85 24 H 157/94 H 97 <Jacob Page - Last Filed: 11/29/19 18:18> Diagnostic/Tx/Re-eval - EKG Initial EKG Interpretation: Sinus Rhythm, No Acute Injury Pattern Prior: Unchanged Treatment - Dyspnea: Oxygen, Albuterol, Steroid Repeat Evaluation: Improved With Ambulation: Asymptomatic - Medical Decision Making Patient presents with shortness of breath and wheezing consistent with an asthma exacerbation. She has no exposures to coronavirus. Her had a negative test earlier this week. She was given Solu-Medrol and aerosols. EKG was sinus rhythm no signs of acute ischemic changes were noted. Chest x-ray was unremarkable. Repeat exam the patient feels well. Her pulse ox is 98%. She is able to ambulate without shortness of breath. Will prescribe prednisone and she will continue her aerosols and nebulizer and follow-up with her rooming house operator next week. She was advised that she develops worsening symptoms return to the emergency department. <Yuriy Baugh - Last Filed: 11/29/19 17:58> - Medical Decision Making Patient presents with cough and wheezing. She does have significant asthma history. She has also restarted smoking. She is had no fever. She is not hypoxic. Patient was given nebulized treatments with improvement. Chest x-ray was unremarkable. I have no suspicion for COVID at this time. I do feel that she is safe for outpatient therapy and she is comfortable with this plan of care. <Jacob Page - Last Filed: 11/29/19 18:18> ED Disposition <Yuriy Baugh - Last Filed: 11/29/19 17:58> <Jacob Page - Last Filed: 11/29/19 18:18> - Plan for ED Patient: Disposition: Home or Assisted Living Diagnosis: Shortness of breath, Asthma Instructions: ED REACTIVE AIRWAY DISEASE Adult Prescriptions: Prednisone [Deltasone] 40 mg PO DAILY #10 tab Transmission Status: Received by [facility] Benzonatate [Tessalon Perle] 200 mg PO TID PRN PRN #20 cap PRN Reason: Cough Transmission Status: Received by [facility] Referrals: Satya Tinoco MD [Primary Care Provider] -
== END 2019-11-29 18:31 | disposition home or self-care (01) ==
PROVIDERS: Emergency Provider Physician Assistant Medical; PCP Family Medicine
DX: R06.02 Shortness of breath (principal); J45.909 Unspecified asthma, uncomplicated; G40.909 Epilepsy, unspecified, not intractable, without status epilepticus; I10 Essential (primary) hypertension; Z80.3 Family history of malignant neoplasm of breast; Z82.3 Family history of stroke; Z82.49 Family history of ischemic heart disease and other diseases of the circulatory system; Z90.710 Acquired absence of both cervix and uterus
CPT/HCPCS: 71045; 93005; 94640; 96374; 99251; 99284; A4216; G0463

== ENCOUNTER 2019-12-14 16:02 | Emergency (ER) | payer MEDICARE, SELFPAY ==
[2019-11-29 15:59] VITALS: BMI 44.8
[2019-12-14 16:03] VITALS: BP 155/93; PULSE 98; RESP 18; TEMP 36.1; O2SAT 99; BMI 43.4
--- NOTE | 2019-12-14 16:22 | ED.VIS.DENTA ---
History of Present Illness Chief Complaint: Dental Informant: Patient Onset: Days - 10 days Context: Sudden Onset Timing: Continuous Quality: Aching and throbbing pain Location: front tooth Current Severity: Severe Maximum Severity: Severe Worsened by: Eating and drinking Relieved by: NSAIDs Associated Symptoms: Facial Swellling Narrative: 54-year-old female presents with dental pain. Patient was eating biscotti cookie 2 weeks ago and her left front tooth broke off. Since that time she has had increased pain and swelling. No drainage. No facial swelling until this morning. No difficulty breathing or swallowing or difficulty opening closing her mouth. No nausea or vomiting. No headache. She is not lightheaded or dizzy. She has not seen her dentist. She has not yet been on antibiotics. Prior similar symptoms: Yes Recent Illness/Hospitalization: No Past Medical History - Allergies and Home Meds Allergies/Adverse Reactions: Allergies lorazepam [From Ativan] Adverse Reaction (Severe, Verified 12/14/19 16:03) Other SEDATES CANT WAKE ME UP Primary Care Physician: Satya Tinoco MD [Primary Care Provider] - Prior records reviewed: Yes Past Medical History: - - Hypertension, atrial fibrillation, hyperlipidemia, asthma, multiple sclerosis Surgical History: hysterectomy, tonsillectomy Lives: With Family Smoking Status: Current some day smoker Alcohol: None Drugs: None - Family History Maternal Family History: Family History (Last Reviewed 10/01/19 @ 08:20 by Gilma Stoner) Mother Myocardial infarction Hypertension Breast cancer Father CVA (cerebral vascular accident) Myocardial infarction Diabetes CAD (coronary artery disease) Brother CVA (cerebral vascular accident) CAD (coronary artery disease) Sister Afib Family History: Reports: Heart Disease Paternal Family History: Family History (Last Reviewed 10/01/19 @ 08:20 by Gilma Stoner) Mother Myocardial infarction Hypertension Breast cancer Father CVA (cerebral vascular accident) Myocardial infarction Diabetes CAD (coronary artery disease) Brother CVA (cerebral vascular accident) CAD (coronary artery disease) Sister Afib Family History: Reports: Heart Disease Review of Systems All systems negative except as indicated General: Denies: Chills, Fever, Sweats Eyes: Denies: Visual changes - bilaterally, Diplopia ENT: Reports: - - Dental pain. Denies: Rhinorrhea, Sore throat Cardiovascular: Denies: Chest pain, Palpitations Respiratory: Denies: Dyspnea, Cough, Dyspnea on exertion Gastrointestinal: Denies: Abdominal pain, Nausea, Vomiting, Diarrhea, Melena, Hematochezia Genitourinary: Denies: Dysuria, Hematuria, Frequency Musculoskeletal: Denies: Back pain, Extremity Pain Skin: Denies: Rash, Wounds Neurological: Denies: Headache, Weakness, Numbness Physical Exam Vital Signs/Narrative: Vital Signs Temp Pulse Resp BP Pulse Ox 12/14/19 16:03 97 F L 98 18 155/93 H 99 Inital Vital Signs reviewed: Yes General: Well nourished, Well developed Head: Normocephalic, Atraumatic ENT: Moist mucous membranes, No rhinorrhea, TM's clear Mouth/Throat: Normal oral mucosa, No focal abscess, Normal posterior oropharynx, No sublingual edema, Dental avulsion, Focal dental decay, Focal gum swelling, Tenderness on tooth percussion, Widespread dental decay. Negative for: Normal Stensen's duct, Dental trauma, Filling loss, Trismus Neck: Supple, No lymphadenopathy, Nontender, No JVD Cardiovascular: Regular rate, Regular rhythm, No murmurs Respiratory: No distress, CTA bilaterally, Chest nontender Abdomen: Soft, Nontender, Nondistended, Normal bowel sounds Back: Nontender, Normal Inspection Extremities: Nontender, No edema Skin: Normal color, No rash Neurological: Alert, Oriented x3, Cranial nerves II-XII grossly intact, Normal Strength, Normal Sensation Psychological: Normal affect Diagnostic/Tx/Re-eval - Medical Decision Making Patient has dental caries with a localized infection. No sublingual edema or trismus. Submental space is soft. Will place patient on penicillin and advised her to follow-up closely with dental. Return precautions given. She was agreeable with plan all questions were answered. ED Disposition - Plan for ED Patient: Disposition: Home or Assisted Living Diagnosis: Dental caries, Asthma-COPD overlap syndrome Instructions: ED Tooth Pain Prescriptions: Penicillin V Potassium 500 mg PO 4X/DAY #40 tab Transmission Status: Pending to [facility] Referrals: Satya Tinoco MD [Primary Care Provider] - Dentist,Your [STAFF PHYSICIAN] -
[2019-12-14] MEDS: Penicillin Vk 250 MG Tablet 500 MG PO (16:55)
[2019-12-14 17:32] VITALS: BP 145/79; PULSE 95; RESP 14; O2SAT 97
== END 2019-12-14 17:33 | disposition home or self-care (01) ==
PROVIDERS: Emergency Provider Physician Assistant Medical; PCP Family Medicine
DX: K02.9 Dental caries, unspecified (principal); J44.9 Chronic obstructive pulmonary disease, unspecified; I10 Essential (primary) hypertension; G35 Multiple sclerosis; E78.5 Hyperlipidemia, unspecified
CPT/HCPCS: 99283

== ENCOUNTER 2020-04-03 13:54 | Emergency (ER) | payer MEDICARE, SELFPAY ==
[2020-04-03 13:56] VITALS: BP 154/109; PULSE 116; RESP 17; TEMP 35.3; O2SAT 97; BMI 44.0
--- NOTE | 2020-04-03 14:12 | EKG12_ITS ---
Test Reason : NAUSEA Blood Pressure : / mmHG Vent. Rate : 087 BPM Atrial Rate : 087 BPM P-R Int : 158 ms QRS Dur : 082 ms QT Int : 360 ms P-R-T Axes : 071 -36 013 degrees QTc Int : 433 ms Normal sinus rhythm Left axis deviation Abnormal ECG Confirmed by JAGDEEP FARRELL, DONG ([id number]), technical editor ADI PIERRE ([id number]) on 04/05/2020 12:21:15 PM Referred By: LUDIVINA Confirmed By:DARA GANNON MD
--- NOTE | 2020-04-03 14:12 | ED.VIS.GEN ---
History of Present Illness Chief Complaint: Nausea/Vomiting/Diarrhea Informant: Patient Narrative: 54-year-old female presenting for the evaluation of vomiting and diarrhea. She tells me she got her second Covid vaccination on Sunday. On Sunday she began to have vomiting and diarrhea. The diarrhea has resolved. She states she has not had anything to eat or drink for 4 days. She has a history of multiple sclerosis, rheumatoid arthritis, atrial fibrillation and borderline diabetes. Her arm is no longer sore. She has no rashes. No fever. - Past Medical History (1) Nicotine abuse Status: Chronic (2) Aortic stenosis Status: Chronic (3) Asthma-COPD overlap syndrome Status: Chronic (4) Hypertension Status: Chronic (5) Multiple sclerosis Status: Chronic (6) Paroxysmal atrial fibrillation Status: Chronic Past Medical History - Allergies and Home Meds Allergies/Adverse Reactions: Allergies lorazepam [From Ativan] Adverse Reaction (Severe, Verified 04/03/20 13:55) Other SEDATES CANT WAKE ME UP Primary Care Physician: Satya Tinoco MD [Primary Care Provider] - 3-5 Days if not improving Surgical History: noncontributory, hysterectomy, tonsillectomy Smoking Status: Current some day smoker Alcohol: None Drugs: None - Family History Maternal Family History: Family History (Last Reviewed 10/01/19 @ 08:20 by Gilma Stoner) Mother Myocardial infarction Hypertension Breast cancer Father CVA (cerebral vascular accident) Myocardial infarction Diabetes CAD (coronary artery disease) Brother CVA (cerebral vascular accident) CAD (coronary artery disease) Sister Afib Family History: Reports: Heart Disease Paternal Family History: Family History (Last Reviewed 10/01/19 @ 08:20 by Gilma Stoner) Mother Myocardial infarction Hypertension Breast cancer Father CVA (cerebral vascular accident) Myocardial infarction Diabetes CAD (coronary artery disease) Brother CVA (cerebral vascular accident) CAD (coronary artery disease) Sister Afib Family History: Reports: Heart Disease Review of Systems General: Reports: Chills, Malaise. Denies: Fever, Sweats Eyes: Denies: Visual changes - bilaterally, Diplopia ENT: Denies: Rhinorrhea, Sore throat Cardiovascular: Denies: Chest pain, Palpitations Respiratory: Denies: Dyspnea, Cough, Dyspnea on exertion Gastrointestinal: Reports: Nausea, Vomiting, Diarrhea. Denies: Abdominal pain, Melena, Hematochezia Genitourinary: Denies: Dysuria, Hematuria, Frequency Musculoskeletal: Denies: Back pain, Extremity Pain Skin: Denies: Rash, Wounds Neurological: Denies: Headache, Weakness, Numbness Physical Exam Vital Signs/Narrative: Vital Signs Temp Pulse Resp BP Pulse Ox 04/03/20 13:56 95.6 F L 116 H 17 154/109 H 97 Inital Vital Signs reviewed: Yes General: Well nourished, Well developed, Obese, No Acute Distress Head: Normocephalic, Atraumatic Eyes: Perrl, EOMI ENT: Moist mucous membranes, No rhinorrhea Neck: Supple, Nontender Cardiovascular: Regular rate, Regular rhythm, No murmurs Respiratory: No distress, CTA bilaterally, Chest nontender Abdomen: Soft, Nontender, Nondistended, Normal bowel sounds Back: Nontender, Normal Inspection Extremities: Nontender, No edema Skin: Normal color, No rash Neurological: Alert, Oriented x3, Cranial nerves II-XII grossly intact, Normal Strength, Normal Sensation Psychological: Normal affect, Normal Mood Diagnostic/Tx/Re-eval - EKG Initial EKG Interpretation: Sinus Rhythm - EKG is a normal sinus rhythm at a rate of 87 without ectopy or concerning features of ACS. - Medical Decision Making IV was established and the patient received IV fluids and Zofran. EKG shows a normal sinus rhythm. Basic labs were obtained. ED Disposition - Plan for ED Patient: Disposition: Home or Assisted Living Diagnosis: Gastroenteritis, Hypokalemia Instructions: ED Gastroenteritis, Viral (Adult) Prescriptions: Potassium Chloride [K-Dur] 40 meq PO DAILY #8 tab Prescription Printed Ondansetron [Zofran Odt] 4 mg PO Q6H PRN PRN #20 tab PRN Reason: Nausea Prescription Printed Referrals: Satya Tinoco MD [Primary Care Provider] - 3-5 Days if not improving
[2020-04-03] MEDS: 0.9% Normal Saline 1,000 ML 1000 ML IV (14:30)
[2020-04-03] MEDS: Ondansetron 4 MG/2 ML Vial IV (14:30)
[2020-04-03 14:42] LABS: Absolute Lymphocyte Count 1.99 X10^3/uL (0.83-4.51); Absolute Neutrophil Count 6.8 X10^3/uL (2.0-7.7); Basophil# 0.05 X10^3/uL; Basophil% 0.5 % (0-1); Eosinophil# 0.26 X10^3/uL; Eosinophils% 2.6 % (0-5); Hematocrit 48.2 % (37-47); Hemoglobin 15.8 g/dL (12.0-15.0); Lymphocyte # 1.99 X10^3/ul (4.0); Lymphocyte % 20.1 % (19-41); Mean Corp Hgb Conc 32.8 g/dL (32-36); Mean Corpuscular Hgb 31.3 pg (27.0-32.0); Mean Corpuscular Volume 95.4 fL (81-99); Mean Platelet Vol. 11.2 fl (6.2-12.0); Monocyte% 8.1 % (0-10); NRBC Flagged by Analyzer 0 % (0-5); Neutrophil # 6.79 X10^3/uL (2.7-7.7); Neutrophil % 68.5 % (47-70); Platelet Count 122 K/mm3 (150-450); RBC Distribution Width CV 12.6 % (11.6-14.6); Red Blood Count 5.05 M/mm3 (4.2-5.4); White Blood Count 9.9 K/mm3 (4.4-11.0)
[2020-04-03 14:57] LABS: ALB/GLOB Ratio 1.1 RATIO (0.9-2.4); AST(SGOT) 87 U/L (15-37); Alanine Aminotransfer ALT/SGPT 136 U/L (13-56); Albumin, Serum 3.9 g/dL (3.2-5.0); Alkaline Phosphatase 113 U/L (45-117); Anion Gap 9 (5-15); BUN 14 mg/dL (7-18); BUN/Creat Ratio 20.8 RATIO (10-20); Chloride 103 mmol/L (98-107); Creatinine, Serum 0.67 mg/dL (0.55-1.02); EST Glomerular Filtration Rate 97 mL/min (>60); Est Glom Filt Rate - Afr Amer 117 mL/min (>60); Estimated Creatinine Clearance 72.43 ml/min; Globulin 3.5 g/dL (2.2-4.2); Glucose 143 mg/dL (74-106); Lipase 77 U/L (73-393); Potassium 3.2 mmol/L (3.5-5.1); Protein, Total 7.4 g/dL (6.4-8.2); Sodium Level 139 mmol/L (136-145)
== END 2020-04-03 15:45 | disposition home or self-care (01) ==
PROVIDERS: Emergency Provider Emergency Medicine; PCP Family Medicine
DX: E87.6 Hypokalemia (principal); K52.9 Noninfective gastroenteritis and colitis, unspecified; E66.9 Obesity, unspecified; I35.0 Nonrheumatic aortic (valve) stenosis; J44.9 Chronic obstructive pulmonary disease, unspecified; G35 Multiple sclerosis; I48.0 Paroxysmal atrial fibrillation; I10 Essential (primary) hypertension; M06.9 Rheumatoid arthritis, unspecified; Z80.3 Family history of malignant neoplasm of breast; Z82.3 Family history of stroke; Z82.49 Family history of ischemic heart disease and other diseases of the circulatory system; Z83.3 Family history of diabetes mellitus; Z90.710 Acquired absence of both cervix and uterus; Z72.0 Tobacco use
CPT/HCPCS: 80053; 83690; 85025; 93005; 96361; 96374; 99283; J7030; A4216; J2405

== ENCOUNTER 2020-11-04 18:15 | Emergency (ER) | payer OTHER, SELFPAY ==
[2020-11-04 18:17] VITALS: BP 181/111; PULSE 113; RESP 19; TEMP 36.6; O2SAT 97; BMI 41.9
--- NOTE | 2020-11-04 18:31 | CT_ITS ---
STUDY: CT ABDOMEN AND PELVIS WITHOUT CONTRAST REASON FOR EXAM: Female, 55 years old. Pain RADIATION DOSAGE (If Supplied By Facility): CTDIvol = ( 21.26 ) mGy, DLP = ( 1046.55 ) mGycm TECHNIQUE: Transaxial images were obtained from the dome of the diaphragm to the symphysis pubis without oral contrast, and without intravenous contrast. Sagittal and coronal images were reconstructed. Individualized dose optimization techniques were used for this CT. COMPARISON: None. FINDINGS: The visualized lung bases are unremarkable. The visualized portions of the heart are within normal limits. The lack of intravenous contrast limits evaluation of solid visceral organs. There is decreased attenuation of the liver consistent with steatosis. There is hepatomegaly. Normal gallbladder and extrahepatic biliary system. Normal spleen. Normal pancreas. Normal bilateral adrenal glands. Normal right kidney. There is an exophytic 2 cm cyst arising from the left kidney. Normal visualized stomach. Normal small intestine. Normal colon. There is non-visualization of the appendix. There is diffuse atherosclerotic calcification of the abdominal aorta, without a demonstrated aneurysm. Normal inferior vena cava. Normal retroperitoneum. Normal urinary bladder. There are phleboliths within the pelvis. Normal abdominal wall. There are diffuse degenerative changes of the visualized thoracic and lumbar spine. CT/Abdomen/Pelvis without Cont IMPRESSION: Fatty infiltration of the liver associated with hepatomegaly. Atherosclerosis. Degenerative changes of the visualized thoracic and lumbar spine. Electronically Signed: Ifrah Valdez MD at 20:11 EDT Tel , Service support ,
--- NOTE | 2020-11-04 18:32 | EDS_ITS ---
HPI HPI - GI History of Present Illness Chief Complaint: Nausea/Vomiting/Diarrhea Narrative Narrative: Patient presents with her boyfriend because of nausea, vomiting, and diarrhea that she has had for the last 10 days. She states her symptoms will improve, then return. Of note, she states that she works at the [employer]. She states that she has been tested for COVID-19 3 times. They said that each time that she was negative. However, this facility is reportedly experiencing surge. She states that she received a letter that stated that she should get well soon because she had tested positive for COVID-19 with a rapid antigen. Her main concern, is that she feels lightheaded, and has epigastric abdominal pain with her nausea, vomiting, and diarrhea. In the last 24 hours, she has had one episode of watery stool without any blood in her stool. She vomited up to 6 times without any blood in her emesis. She feels generally weak. She denies any chest pain or shortness of breath. Past surgical history includes hysterectomy. She states that she feels dehydrated. [facility] Medical History (Updated 11/04/20 @ 21:36 by Bryan Tam MD) Aortic stenosis COPD (chronic obstructive pulmonary disease) Family history of CVA Hypertension Multiple sclerosis Palpitations Paroxysmal atrial fibrillation Premature atrial contractions Premature ventricular contraction Seizures Tobacco abuse Home Medications hydrochlorothiazide 12.5 mg PO DAILY #1 tab 02/03/15 [Rx Last Taken 02/03/18] lisinopril 10 mg PO DAILY #1 tab 02/03/15 [Rx Last Taken 02/03/18] gabapentin 600 mg PO TIDCM #90 tab 02/04/15 [Rx Last Taken 02/03/18] albuterol sulfate 2.5 mg INHALATION Q4H #180 vial 05/15/18 [Rx Last Taken Unknown] albuterol sulfate 90 mcg/actuation aerosol inhaler 2 puff INHALATION Q4H PRN #18 g 05/15/18 [Rx Last Taken Unknown] budesonide-formoterol HFA 160 mcg-4.5 mcg/actuation aerosol inhaler 2 puff INHALATION BID #1 ea 06/23/19 [Rx Last Taken Unknown] glatiramer 40 mg SQ QODAY 11/29/19 [History Last Taken Unknown] diltiazem HCl 180 mg capsule,extended release 24 hr 180 mg PO DAILY #90 cap 02/23/20 [Rx Last Taken Unknown] potassium chloride 20 mEq tablet,extended release(part/cryst) 20 meq PO DAILY tab 10/03/20 [History Last Taken Unknown] ondansetron 4 mg PO Q8H PRN #10 tab 11/04/20 [Rx Last Taken Unknown] Allergy/AdvReac Type Severity Reaction Status Date / Time lorazepam [From Ativan] AdvReac Severe Other Verified 11/04/20 18:16 Family History Mother Myocardial infarction Hypertension Breast cancer Father CVA (cerebral vascular accident) Myocardial infarction Diabetes CAD (coronary artery disease) Brother CVA (cerebral vascular accident) CAD (coronary artery disease) Sister Afib Surgical History History of total hysterectomy Social History Smoking Status: Current every day smoker tobacco type: cigarettes how long ago did patient quit smokin, 0.5ppd second hand exposure: Yes alcohol intake: never substance use type: does not use caffeine: Yes Type: coffee what type of physical activity do you participate in: none seatbelt use: always do you feel safe at home: Yes ROS ROS ED ROS Narrative Constitutional: No fever, no chills. Positive fatigue. HEENT: No sore throat. No neck pain. No loss of vision. No rhinorrhea. Cardiovascular: No chest pain. No palpitations. No pedal edema. Respiratory: No cough, no shortness of breath. Abdominal: Mild epigastric abdominal pain. Positive nausea. Positive vomiting. Positive diarrhea. Genitourinary: No dysuria. No hematuria. Musculoskeletal: No myalgias. No arthralgias. Neurologic: No headaches. No dizziness. Positive lightheadedness. Generalized weakness. Skin: No rash. No change in color. Psychiatric: No depression. No anxiety. EXAM Physical Exam Narrative Exam Narrative: Afebrile. Vital signs noted. HEENT: Normocephalic. Atraumatic. PERRL, EOMI. Neck soft and supple. No point tenderness or step off. Cardiovascular: Positive tachycardia. No murmurs, rubs, or gallops appreciated. Respiratory: No tachypnea. Lungs clear to auscultation bilaterally. Gastrointestinal: Abdomen soft, nontender, with normoactive bowel sounds. No rebound or guarding. Normal tenderness to palpation in epigastrium. Negative Arellano sign. Neurological: Awake. Alert. Nonfocal, nonlateralizing. Skin: No rash. Normal color. No pallor. Mild tenting of skin. Musculoskeletal: No pedal edema. Full range of motion extremities. Const Vital Signs: 11/04/20 18:17 11/04/20 21:30 Temperature 97.9 F Temperature Source Temporal Pulse Rate 113 H 100 Respiratory Rate 19 H 14 Blood Pressure 181/111 H 139/100 H Blood Pressure Mean 134 113 Pulse Ox 97 99 Oxygen Delivery Method Room Air Room Air MDM MDM MDM Narrative Medical decision making narrative: Comprehensive work-up was pursued. She is bolused normal saline 1 L intravenously and administered Zofran 4 mg intravenously. She has a slight hypokalemia of 3.2. LFTs are elevated. CT the abdomen pelvis shows no evidence of colitis or obstruction. I do not feel antibiotics are indicated. Her potassium was replaced orally. She has not had nausea or vomiting or diarrhea here in the emergency department. Upon repeat examination, she feels well and would like to be discharged. I will write her prescription for Zofran. UA shows no evidence of infection. I do not feel antibiotics are indicated. Disposition is discharged home in stable condition. She will follow up with her primary care physician. Return instructions to the emergency department were reviewed. Lab Data Attestation: I reviewed the patient's lab results. Labs: Laboratory Results - last 24 hr 11/04/20 11/04/20 11/04/20 16:35 16:35 20:43 WBC 6.8 RBC 5.01 Hgb 16.3 H Hct 48.6 H MCV 97.0 MCH 32.5 H MCHC 33.5 RDW Std Deviation 44.9 H RDW Coeff of Ayaka 12.6 Plt Count 125 L MPV 11.0 Immature Gran % (Auto) 0.600 Neut % (Auto) 49.7 Lymph % (Auto) 38.9 Bowie % (Auto) 9.2 Eos % (Auto) 0.9 Baso % (Auto) 0.7 Absolute Neuts (auto) 3.4 Absolute Lymphs (auto) 2.65 Nucleated RBC % 0 Sodium 136 Potassium 3.2 L Chloride 104 Carbon Dioxide 23.0 Anion Gap 9 BUN 14 Creatinine 0.65 Estim Creat Clear Calc 73.79 Est GFR (MDRD) Af Amer 122 Est GFR (MDRD) Non-Af 101 BUN/Creatinine Ratio 21.6 H Glucose 150 H Calcium 8.3 L Total Bilirubin 1.80 H AST 209 H ALT 144 H Alkaline Phosphatase 159 H Total Protein 7.3 Albumin 3.6 Globulin 3.7 Albumin/Globulin Ratio 1.0 Lipase 188 Urine Color Yellow Urine Clarity Clear Urine pH 6.5 Ur Specific [place] 1.020 Urine Protein 30 H Urine Glucose (UA) Normal Urine Ketones Negative Urine Occult Blood 10 H Urine Nitrite Negative Urine Bilirubin 1 H Urine Urobilinogen 8 H Ur Leukocyte Esterase 25 H Urine RBC Cancelled Urine WBC Cancelled Ur Squamous Epith Cells Cancelled Ur Transition Epith Cell Cancelled Ur Renal Epithelial Cell Cancelled Calcium Oxalate Crystal Cancelled Uric Acid Crystals Cancelled Triple Phos Crystals Cancelled Other Crystals Cancelled Amorphous Sediment Cancelled Urine Bacteria Cancelled Hyaline Casts Cancelled Fine Granular Casts Cancelled Coarse Granular Casts Cancelled Waxy Casts Cancelled RBC Casts Cancelled WBC Casts Cancelled Urine Mucus Cancelled Urine Trichomonas Cancelled Urine Yeast Cancelled Radiography Diagnostic Testing: Radiology Impression Abdomen/Pelvis CT 11/04/20 18:31 IMPRESSION: Fatty infiltration of the liver associated with hepatomegaly. Atherosclerosis. Degenerative changes of the visualized thoracic and lumbar spine. Electronically Signed: Ifrah Valdez MD at 20:11 EDT Tel , Service support , Discharge Plan Triage Chief Complaint: Nausea/Vomiting/Diarrhea ED Provider: Bryan Tam Dx/Rx/DC Orders Clinical Impression: Nausea vomiting and diarrhea, Hypokalemia, Dehydration Instructions: ED Dehydration (Adult), ED Hypokalemia, ED Gastroenteritis, Viral (Adult) Prescriptions: New ondansetron 4 mg tablet,disintegrating 4 mg PO Q8H PRN (Reason: nausea and vomiting) Qty: 10 RF: 0 No Action Ventolin HFA 90 mcg/actuation HFA aerosol inhaler 2 puff INHALATION Q4H PRN (Reason: shortness of breath or wheezing) Qty: 18 RF: 2 albuterol sulfate 2.5 mg /3 mL (0.083 %) solution for nebulization 2.5 mg INHALATION Q4H Qty: 180 RF: 3 budesonide-formoterol [Symbicort] 160-4.5 mcg/actuation HFA aerosol inhaler 2 puff INHALATION BID Qty: 1 RF: 3 potassium chloride 20 mEq tablet,ER particles/crystals 20 meq PO DAILY RF: 0 lisinopril 20 MG tablet 10 mg PO DAILY Qty: 1 RF: 0 hydrochlorothiazide 25 MG tablet 12.5 mg PO DAILY Qty: 1 RF: 0 gabapentin 600 MG tablet 600 mg PO TIDCM Qty: 90 RF: 0 glatiramer 40 MG/ML syringe 40 mg SQ QODAY RF: 0 diltiazem HCl 180 mg capsule,extended release 24hr 180 mg PO DAILY Qty: 90 RF: 3 Primary Care Provider: Satya Tinoco Referrals: Satya Tinoco MD [Primary Care Provider] - 11/08/20 Disposition Disposition: Home, Self Care
[2020-11-04 18:43] LABS: Absolute Lymphocyte Count 2.65 X10^3/uL (0.83-4.51); Absolute Neutrophil Count 3.4 X10^3/uL (2.0-7.7); Basophil# 0.05 X10^3/uL; Basophil% 0.7 % (0-1); Eosinophil# 0.06 X10^3/uL; Eosinophils% 0.9 % (0-5); Hematocrit 48.6 % (37-47); Hemoglobin 16.3 g/dL (12.0-15.0); Lymphocyte # 2.65 X10^3/ul (0.83-4.51); Lymphocyte % 38.9 % (19-41); Mean Corp Hgb Conc 33.5 g/dL (32-36); Mean Corpuscular Hgb 32.5 pg (27.0-32.0); Monocyte# 0.63 X10^3/uL; Monocyte% 9.2 % (0-10); NRBC Flagged by Analyzer 0 % (0-5); Neutrophil # 3.39 X10^3/uL (2.7-7.7); Neutrophil % 49.7 % (47-70); Platelet Count 125 K/mm3 (150-450); RBC Distribution Width CV 12.6 % (11.6-14.6); RBC Distribution Width SD 44.9 fl (35.1-43.9); Red Blood Count 5.01 M/mm3 (4.2-5.4); White Blood Count 6.8 K/mm3 (4.4-11.0)
[2020-11-04] MEDS: 0.9% Normal Saline 1,000 ML 1000 ML IV (18:44)
[2020-11-04] MEDS: Ondansetron 4 MG/2 ML Vial IV (18:45)
[2020-11-04 18:58] LABS: AST(SGOT) 209 U/L (15-37); Alanine Aminotransfer ALT/SGPT 144 U/L (13-56); Albumin, Serum 3.6 g/dL (3.2-5.0); Alkaline Phosphatase 159 U/L (45-117); Anion Gap 9 (5-15); BUN 14 mg/dL (7-18); BUN/Creat Ratio 21.6 RATIO (10-20); Calcium,Total 8.3 mg/dL (8.5-10.1); Chloride 104 mmol/L (98-107); Creatinine, Serum 0.65 mg/dL (0.55-1.02); EST Glomerular Filtration Rate 101 mL/min (>60); Est Glom Filt Rate - Afr Amer 122 mL/min (>60); Estimated Creatinine Clearance 73.79 ml/min; Globulin 3.7 g/dL (2.2-4.2); Glucose 150 mg/dL (74-106); Lipase 188 U/L (73-393); Potassium 3.2 mmol/L (3.5-5.1); Protein, Total 7.3 g/dL (6.4-8.2); Sodium Level 136 mmol/L (136-145)
[2020-11-04 20:56] LABS: Color, Urine Yellow (Yellow); Glucose, Dipstick Normal (Normal); Ketone-Dipstick Negative (Negative); Leukocyte Esterase-Dipstick 25 /ul (Negative); Nitrite-Dipstick Negative (Negative); Occult Blood-Urine 10 /ul (Negative); Protein-Dipstick 30 mg/dl (Negative); Urine Bilirubin Dipstick 1 mg/dL (Negative); Urine Clarity Clear (Clear); Urine Urobilinogen 8 mg/dl (Normal); Urine pH 6.5 (5.0 - 8.0)
[2020-11-04] MEDS: Potassium Chloride Oral Tablet 20 MEQ 40 MEQ PO (21:28)
[2020-11-04 21:30] VITALS: BP 139/100; PULSE 100; RESP 14; O2SAT 99
== END 2020-11-04 21:51 | disposition home or self-care (01) ==
PROVIDERS: Emergency Provider Emergency Medicine; PCP Family Medicine
DX: A08.4 Viral intestinal infection, unspecified (principal); R11.2 Nausea with vomiting, unspecified; R19.7 Diarrhea, unspecified; E86.0 Dehydration; E87.6 Hypokalemia; G35 Multiple sclerosis; I10 Essential (primary) hypertension; K76.0 Fatty (change of) liver, not elsewhere classified; I48.0 Paroxysmal atrial fibrillation; I35.0 Nonrheumatic aortic (valve) stenosis; J44.9 Chronic obstructive pulmonary disease, unspecified; M47.816 Spondylosis without myelopathy or radiculopathy, lumbar region; Z79.899 Other long term (current) drug therapy; Z82.3 Family history of stroke; Z87.891 Personal history of nicotine dependence
CPT/HCPCS: 74176; 80053; 81002; 83690; 85025; 96361; 96374; 99281; 99283; J7030; A4216; J2405

== ENCOUNTER 2020-11-12 23:20 | Emergency (ER) | payer OTHER, SELFPAY ==
[2020-11-12 23:21] VITALS: BP 170/108; PULSE 104; RESP 18; TEMP 36.2; O2SAT 93; BMI 41.5
--- NOTE | 2020-11-12 23:33 | EKG12_ITS ---
Test Reason : SOB Blood Pressure : / mmHG Vent. Rate : 084 BPM Atrial Rate : 084 BPM P-R Int : 164 ms QRS Dur : 078 ms QT Int : 386 ms P-R-T Axes : 068 -44 010 degrees QTc Int : 456 ms Sinus rhythm with Premature atrial complexes Left axis deviation Abnormal ECG Confirmed by PARVEEN FARRELL, MANJULA ([id number]), editorial specialist ADI PIERRE ([id number]) on 11/15/2020 2:21:12 PM Referred By: FEDE Confirmed By:MANJULA SAINI MD
--- NOTE | 2020-11-12 23:33 | RAD_ITS ---
STUDY: X-RAY CHEST REASON FOR EXAM: Female, 55 years old. Chest pain TECHNIQUE: Portable, upright, AP chest radiograph COMPARISON: 11/29/2019 FINDINGS: The lungs are clear and expanded. There is no demonstrated pleural abnormality. Normal size heart. Normal mediastinum and laura. Normal visualized pulmonary arteries. Normal visualized aortic arch and descending thoracic aorta. Normal visualized thoracic spine. Normal visualized ribs, clavicles, and shoulders. There is no demonstrated abnormality of the visualized soft tissue structures of the upper abdomen. RAD/Chest 1 View (Portable) IMPRESSION: No acute abnormal cardiopulmonary finding. Electronically Signed: Carter Garcia MD at 0:37 EDT Tel , Service support ,
--- NOTE | 2020-11-12 23:45 | ED.VIS.DYS ---
HPI History of Present Illness Chief Complaint: Shortness of Breath Narrative Narrative: 55-year-old female presenting with shortness of breath, nausea, vomiting, diarrhea. She states she tested positive for COVID-19 about a month ago. Patient does not have any fever. She states she has days where she feels well and other days where she feels generally weak. Patient states he has a history of atrial fibrillation but is not anticoagulated. Patient feels like she is having palpitations at times. Patient started having chest pain today which she states feels like heaviness which has been present all day. Feels a little bit more short of breath. She still has a cough. [facility] Medical History Aortic stenosis COPD (chronic obstructive pulmonary disease) Family history of CVA Hypertension Multiple sclerosis Palpitations Paroxysmal atrial fibrillation Premature atrial contractions Premature ventricular contraction Seizures Tobacco abuse Home Medications hydrochlorothiazide 12.5 mg PO DAILY #1 tab 02/03/15 [Rx Last Taken 02/03/18] lisinopril 10 mg PO DAILY #1 tab 02/03/15 [Rx Last Taken 02/03/18] gabapentin 600 mg PO TIDCM #90 tab 02/04/15 [Rx Last Taken 02/03/18] albuterol sulfate 2.5 mg INHALATION Q4H #180 vial 05/15/18 [Rx Last Taken Unknown] albuterol sulfate 90 mcg/actuation aerosol inhaler 2 puff INHALATION Q4H PRN #18 g 05/15/18 [Rx Last Taken Unknown] budesonide-formoterol HFA 160 mcg-4.5 mcg/actuation aerosol inhaler 2 puff INHALATION BID #1 ea 06/23/19 [Rx Last Taken Unknown] glatiramer 40 mg SQ QODAY 11/29/19 [History Last Taken Unknown] diltiazem HCl 180 mg capsule,extended release 24 hr 180 mg PO DAILY #90 cap 02/23/20 [Rx Last Taken Unknown] potassium chloride 20 mEq tablet,extended release(part/cryst) 20 meq PO DAILY tab 10/03/20 [History Last Taken Unknown] ondansetron 4 mg PO Q8H PRN #10 tab 11/04/20 [Rx Last Taken Unknown] Allergy/AdvReac Type Severity Reaction Status Date / Time lorazepam [From Ativan] AdvReac Severe Other Verified 11/12/20 23:24 Family History Mother Myocardial infarction Hypertension Breast cancer Father CVA (cerebral vascular accident) Myocardial infarction Diabetes CAD (coronary artery disease) Brother CVA (cerebral vascular accident) CAD (coronary artery disease) Sister Afib Surgical History History of total hysterectomy Social History Smoking Status: Current every day smoker tobacco type: cigarettes how long ago did patient quit smokin, 0.5ppd second hand exposure: Yes alcohol intake: never substance use type: does not use caffeine: Yes Type: coffee what type of physical activity do you participate in: none seatbelt use: always do you feel safe at home: Yes ROS ROS ED Constitutional Constitutional ED: Denies chills or fever(s) Eyes Eyes: Denies blurry vision or diplopia ENT ENT ED: Denies rhinorrhea or sore throat Cardiovascular Cardiovascular: Reports chest pain and palpitations Respiratory/Chest Respiratory/Chest: Reports cough and dyspnea Gastrointestinal Gastrointestinal: Reports diarrhea, nausea and vomiting; Denies abdominal pain Genitourinary Genitourinary ED: Denies dysuria or hematuria Musculoskeletal Musculoskeletal: Denies arthralgias, back pain, myalgias or neck pain Integumentary Denies rash Neurologic Neurologic: Denies headache(s) or paresthesias EXAM Physical Exam Const Vital Signs: 11/12/20 23:21 11/13/20 00:53 11/13/20 00:59 Temperature 97.2 F L Temperature Source Temporal Pulse Rate 104 H Respiratory Rate 18 Respiratory Effort Normal Non-Labored Respiratory Depth Normal Respiratory Pattern Normal Blood Pressure 170/108 H Blood Pressure Mean 128 Pulse Ox 93 Oxygen Delivery Method Room Air Room Air Room Air 11/13/20 01:20 Temperature Temperature Source Pulse Rate 87 Respiratory Rate 16 Respiratory Effort Respiratory Depth Respiratory Pattern Blood Pressure 153/111 H Blood Pressure Mean 125 Pulse Ox 97 Oxygen Delivery Method Room Air Positive well nourished General Appearance ED: NAD; Negative for pallor HEENT Reports moist mucous membranes atraumatic Eyes PERRL and EOMs intact bilaterally Neck no lymphadenopathy, supple and no meningeal signs Resp normal respiratory effort and clear to auscultation bilaterally Auscultation: Negative for rhonchi or wheezes Cardio regular rhythm Rate: tachycardic GI non-tender Palpation: soft Extremity normal to inspection General Extremety ED: Negative for edema or tenderness General Extremity: Negative for edema Neuro oriented x3, CN's II-XII intact bilaterally and no sensory deficits noted Sensorium / Orientation: alert Motor Exam: strength 5/5 throughout Psych mental status grossly normal Thought Process: normal thought process Skin General Skin Exam: Negative for jaundice or pallor Rashes: no rashes MDM MDM MDM Narrative Medical decision making narrative: Patient presenting with nausea, vomiting, diarrhea. She has been previously seen for this. She had a CT of her abdomen pelvis performed which did not show any acute pathology. Patient's biggest concern today is that she is still coughing and having some chest discomfort. Patient is not having fever, chills, body aches. She states she alternates between days of feeling well and days of feeling generally weak. She states she tested positive for COVID-19 however her testing results in the computer at [facility] do not show a positive result. She states that she received a letter in the mail stating that she would get well soon from Covid 19. It is unsure if this was received in error. I will do a Covid PCR since its difficult to figure out when her symptoms actually started but she states that it has been about a month. Patient CBC is normal. D-dimer is low at 0.48. Renal function is normal. Potassium is slightly low at 3.0 and this was replaced. LFTs are again elevated but not significantly changed. Patient was tested for COVID-19 with PCR and this is a send out. Patient's chest x-ray on my interpretation shows no acute cardiopulmonary process and the radiologist does agree. EKG on my interpretation shows a sinus rhythm with a ventricular rate of 84 bpm with occasional PACs. Given patient's negative work-up I feel she is safe to be discharged home. She will await her Covid testing. Her blood work is not consistent with COVID-19 and her D-dimer being negative and she likely does not have COVID-19. Patient will be given a prescription for Zofran. Impression: 1. Chest pain noncardiac 2. Nausea/vomiting Lab Data Labs: Laboratory Results - last 24 hr 11/13/20 11/13/2021 00:27 00:27 00:27 WBC 6.3 RBC 4.76 Hgb 15.6 H Hct 45.3 MCV 95.2 MCH 32.8 H MCHC 34.4 RDW Std Deviation 45.3 H RDW Coeff of Ayaka 12.9 Plt Count 111 L MPV 10.8 Immature Gran % (Auto) 0.200 Neut % (Auto) 52.9 Lymph % (Auto) 37.0 Lea % (Auto) 7.6 Eos % (Auto) 1.3 Baso % (Auto) 1.0 Absolute Neuts (auto) 3.3 Absolute Lymphs (auto) 2.33 Nucleated RBC % 0.5 D-Dimer Quant (PE/DVT) 0.48 Sodium 137 Potassium 3.0 L Chloride 102 Carbon Dioxide 26.0 Anion Gap 9 BUN 10 Creatinine 0.52 L Estim Creat Clear Calc 92.24 Est GFR (MDRD) Af Amer 158 Est GFR (MDRD) Non-Af 131 BUN/Creatinine Ratio 19.3 Glucose 162 H Calcium 8.1 L Total Bilirubin 1.60 H AST 237 H ALT 131 H Alkaline Phosphatase 204 H Troponin I High Sens 16 Total Protein 7.0 Albumin 3.2 Globulin 3.8 Albumin/Globulin Ratio 0.8 L Radiography Diagnostic Testing: Radiology Impression Chest X-Ray 11/12/20 23:33 IMPRESSION: No acute abnormal cardiopulmonary finding. Electronically Signed: Carter Garcia MD at 0:37 EDT Tel , Service support , Discharge Plan Triage Chief Complaint: Shortness of Breath ED Provider: Ernesto Dumont Dx/Rx/DC Orders Instructions: ED Chest Pain, Noncardiac, ED Diet for Vomiting or ... Prescriptions: No Action Ventolin HFA 90 mcg/actuation HFA aerosol inhaler 2 puff INHALATION Q4H PRN (Reason: shortness of breath or wheezing) Qty: 18 RF: 2 albuterol sulfate 2.5 mg /3 mL (0.083 %) solution for nebulization 2.5 mg INHALATION Q4H Qty: 180 RF: 3 budesonide-formoterol [Symbicort] 160-4.5 mcg/actuation HFA aerosol inhaler 2 puff INHALATION BID Qty: 1 RF: 3 potassium chloride 20 mEq tablet,ER particles/crystals 20 meq PO DAILY RF: 0 lisinopril 20 MG tablet 10 mg PO DAILY Qty: 1 RF: 0 hydrochlorothiazide 25 MG tablet 12.5 mg PO DAILY Qty: 1 RF: 0 gabapentin 600 MG tablet 600 mg PO TIDCM Qty: 90 RF: 0 glatiramer 40 MG/ML syringe 40 mg SQ QODAY RF: 0 ondansetron 4 mg tablet,disintegrating 4 mg PO Q8H PRN (Reason: nausea and vomiting) Qty: 10 RF: 0 diltiazem HCl 180 mg capsule,extended release 24hr 180 mg PO DAILY Qty: 90 RF: 3 Primary Care Provider: Satya Tinoco Referrals: Satya Tinoco MD [Primary Care Provider] - Disposition Disposition: Home, Self Care
[2020-11-13 00:35] LABS: Absolute Lymphocyte Count 2.33 X10^3/uL (0.83-4.51); Absolute Neutrophil Count 3.3 X10^3/uL (2.0-7.7); Basophil# 0.06 X10^3/uL; Eosinophil# 0.08 X10^3/uL; Eosinophils% 1.3 % (0-5); Hematocrit 45.3 % (37-47); Hemoglobin 15.6 g/dL (12.0-15.0); Lymphocyte # 2.33 X10^3/ul (0.83-4.51); Mean Corp Hgb Conc 34.4 g/dL (32-36); Mean Corpuscular Hgb 32.8 pg (27.0-32.0); Mean Corpuscular Volume 95.2 fL (81-99); Mean Platelet Vol. 10.8 fl (6.2-12.0); Monocyte# 0.48 X10^3/uL; Monocyte% 7.6 % (0-10); NRBC Flagged by Analyzer 0.5 % (0-5); Neutrophil # 3.34 X10^3/uL (2.7-7.7); Neutrophil % 52.9 % (47-70); Platelet Count 111 K/mm3 (150-450); RBC Distribution Width CV 12.9 % (11.6-14.6); RBC Distribution Width SD 45.3 fl (35.1-43.9); Red Blood Count 4.76 M/mm3 (4.2-5.4); White Blood Count 6.3 K/mm3 (4.4-11.0)
[2020-11-13 00:48] LABS: D-Dimer Quantitative (DVT/PE) 0.48 FEU/ug/m (0.27-0.49)
[2020-11-13] MEDS: Ondansetron 4 MG/2 ML Vial IV (00:54)
[2020-11-13 00:59] VITALS: O2SAT 95
[2020-11-13 01:00] LABS: ALB/GLOB Ratio 0.8 RATIO (0.9-2.4); AST(SGOT) 237 U/L (15-37); Alanine Aminotransfer ALT/SGPT 131 U/L (13-56); Albumin, Serum 3.2 g/dL (3.2-5.0); Alkaline Phosphatase 204 U/L (45-117); Anion Gap 9 (5-15); BUN 10 mg/dL (7-18); BUN/Creat Ratio 19.3 RATIO (10-20); Calcium,Total 8.1 mg/dL (8.5-10.1); Chloride 102 mmol/L (98-107); Creatinine, Serum 0.52 mg/dL (0.55-1.02); EST Glomerular Filtration Rate 131 mL/min (>60); Est Glom Filt Rate - Afr Amer 158 mL/min (>60); Estimated Creatinine Clearance 92.24 ml/min; Globulin 3.8 g/dL (2.2-4.2); Glucose 162 mg/dL (74-106); Sodium Level 137 mmol/L (136-145); Troponin-I HS 16 pg/mL (3.0-54.0)
[2020-11-13 01:20] VITALS: BP 153/111; PULSE 87; RESP 16; O2SAT 97
[2020-11-13] MEDS: Potassium Chloride Oral Tablet 20 MEQ 60 MEQ PO (01:32)
[2020-11-13 02:05] VITALS: BP 143/94
[2020-11-13 02:06] LABS: Probe Check PASS; Specimen Processing Control PASS
== END 2020-11-13 02:17 | disposition home or self-care (01) ==
PROVIDERS: Emergency Provider Student in an Organized Health Care Education/Training Program; PCP Family Medicine
DX: R07.89 Other chest pain (principal); R11.2 Nausea with vomiting, unspecified; R06.02 Shortness of breath; F17.210 Nicotine dependence, cigarettes, uncomplicated; G35 Multiple sclerosis; I10 Essential (primary) hypertension; I48.0 Paroxysmal atrial fibrillation; I35.0 Nonrheumatic aortic (valve) stenosis; J44.9 Chronic obstructive pulmonary disease, unspecified; Z79.899 Other long term (current) drug therapy; Z86.16 Personal history of COVID-19; Z82.3 Family history of stroke
CPT/HCPCS: 71045; 80053; 84484; 85025; 85379; 87635; 93005; 96374; 99284; U0005; A4216; J2405; U0003

== ENCOUNTER 2020-11-14 11:00 | Inpatient (IN) | payer MEDICARE, SELFPAY ==
[2020-11-14] VITALS (21 sets, daily range): BP systolic 88–167; BP diastolic 60–112; PULSE 81–143; RESP 13–26; TEMP 36.1–36.8; O2SAT 92–97; BMI 43.4; BMI 42.1
--- NOTE | 2020-11-14 11:03 | EKG12_ITS ---
Test Reason : STROKE Blood Pressure : / mmHG Vent. Rate : 140 BPM Atrial Rate : 140 BPM P-R Int : 000 ms QRS Dur : 078 ms QT Int : 330 ms P-R-T Axes : 000 -41 055 degrees QTc Int : 503 ms Atrial fibrillation with premature ventricular or aberrantly conducted complexes Left axis deviation Nonspecific ST and T wave abnormality Abnormal ECG Confirmed by DANA FARRELL, ARLENE ([id number]), editor index ADI PIERRE ([id number]) on 11/15/2020 1:37:13 PM Referred By: CONCEPCION Confirmed By:ARLENE CORTEZ MD
--- NOTE | 2020-11-14 11:03 | CT_ITS ---
STUDY: CT HEAD STROKE PROTOCOL W/O CONTRAST INJECTION REASON FOR EXAM: Female, 55 years old. Neuro deficit, acute, stroke suspected RADIATION DOSAGE (If Supplied By Facility): CTDIvol = ( ) mGy, DLP = ( ) mGycm TECHNIQUE: Transaxial CT imaging of the brain was performed without administration of intravenous contrast material. Individualized dose optimization techniques were used for this CT. COMPARISON: Prior examination is not available for comparison at this time. FINDINGS: Normal soft tissue structures. Normal calvarium. There is mild cerebral atrophy with widening of the extra-axial spaces and ventricular dilatation. Periventricular deep white matter changes could reflect the known multiple sclerosis or chronic changes and microvascular disease. Normal basal ganglia and thalami. Normal brainstem. Normal cerebellum. There is no intracranial hemorrhage. There are no findings of an acute ischemic infarction. Normal visualized paranasal sinuses. CT/STROKE Brain/Head without Cont IMPRESSION: 1. No acute intracranial process. 2. Periventricular deep white matter changes could reflect the known multiple sclerosis or may represent chronic deep white matter changes. 3. If symptoms persist, MRI of the brain might be of further value. N.B. : The above Results were Read Back by Bhupendra Deras MD to Jered Piper MD, and understanding confirmed on 11/14/2020 11:28:38 (ET). Electronically Signed: Bhupendra Deras MD at 11:29 EDT Tel , Service support ,
--- NOTE | 2020-11-14 11:03 | RAD_ITS ---
STUDY: X-RAY CHEST REASON FOR EXAM: Female, 55 years old. Neuro deficit, acute, stroke suspected TECHNIQUE: Single AP portable view of the chest. COMPARISON: 11/12/2020. FINDINGS: Mild elevation of the right hemidiaphragm. No focal infiltrate is seen. There is no demonstrated pleural abnormality. Normal size heart. Normal mediastinum and laura. Normal visualized pulmonary arteries. Normal visualized aortic arch and descending thoracic aorta. No demonstrated acute osseous changes. Normal visualized ribs, clavicles, and shoulders. There is no demonstrated abnormality of the visualized soft tissue structures of the upper abdomen. RAD/Chest 1 View IMPRESSION: No active pulmonary disease. Electronically Signed: Bhupendra Deras MD at 12:28 EDT Tel , Service support ,
--- NOTE | 2020-11-14 11:04 | CT_ITS ---
We are attempting to reach an attending provider to discuss findings. An addendum with communication details will be sent when the communication is complete. STUDY: CTA HEAD AND NECK WITH CONTRAST REASON FOR EXAM: Female, 55 years old. Right-sided weakness, acute, stroke suspected RADIATION DOSAGE (If Supplied By Facility): CTDIvol = ( 18.77 ) mGy, DLP = ( 708.47 ) mGycm TECHNIQUE: CT angiography was performed with a multi-detector CT scanner. Data acquisition was obtained from the skull base through the vertex following intravenous administration of IV 100mL Isovue-370. MIP images were reconstructed from the axial data set. Post-processing of the angiographic images was performed, with multiplanar reformation and 3D reconstruction. Individualized dose optimization techniques were used for this CT. COMPARISON: No relevant priors. FINDINGS: Normal bilateral petrous carotid arteries. Normal right cavernous carotid artery with a normal supraclinoid bifurcation. Normal left cavernous carotid artery with a normal supraclinoid bifurcation. Normal right A1 segments of the anterior cerebral artery. Normal left A1 segments of the anterior cerebral artery. Normal intact anterior communicating artery (ACOM). Normal bilateral A2 segments of the anterior cerebral arteries. Normal right M1 and M2 segments of the middle cerebral arteries, with a normal M1 bifurcation. Normal left M1 and M2 segments of the middle cerebral arteries, with a normal M1 bifurcation. Normal right posterior communicating artery (PCOM). Normal left posterior communicating artery (PCOM). There is a small right vertebral artery with a dominant left vertebral artery. Normal basilar artery with a normal basilar bifurcation. The visualized bilateral superior cerebellar (SCA) arteries are normal. There is no demonstrated aneurysm of the [place] of [place]. There is no demonstrated acute abnormality of the visualized brain. AORTIC ARCH: Normal visualized aortic arch. Normal origins of the brachiocephalic, left common carotid, and left subclavian arteries. RIGHT CAROTID ARTERIES: Normal right common carotid artery (CCA). Normal right common carotid bulb. Normal origin of the right internal carotid (ICA) artery without a hemodynamically significant stenosis. There is atherosclerotic tortuous elongation of the cervical portion of the right internal carotid artery. Normal origin of the right external carotid artery (ECA). LEFT CAROTID ARTERIES: Normal left common carotid artery (CCA). There is mild atherosclerotic plaque formation with minimal narrowing of the left carotid bulb. Normal origin of the left internal carotid (ICA) artery without a hemodynamically significant stenosis. Normal visualized cervical portion of the left internal carotid artery. Normal origin of the left external carotid artery (ECA). VERTEBRAL ARTERIES: There is enhancement within the bilateral vertebral arteries with a small right vertebral artery, and a dominant left vertebral artery. CT/STROKE CTA Head AND Neck W/Con IMPRESSION: 1. No intracranial great vessel stenosis or occlusion. 2. Mild atherosclerotic changes of the left bulb region without significant stenosis. 3. Patent bilateral vertebral artery with dominant left side. Electronically Signed: Bhupendra Deras MD at 11:57 EDT Tel , Service support ,
--- NOTE | 2020-11-14 11:14 | EDS_ITS ---
HPI History of Present Illness Chief Complaint: Neuro S/Sx Informant: spouse/S.O. Onset/Context/Timing Onset: Hours (First noted 1015) Context: Sudden Onset Timing: Continuous Quality and Location: Positive for Right Arm Weakness and Slurred Speech Onset: 1015 Current Severity: Moderate Maximum Severity: Moderate Worsened by: Reported generalized tonic-clonic seizure with decorticate posturing right Relieved by: Nothing Associated Symptoms Associated Symptoms: Positive for Headache (Patient complained of headache prior to transport) Narrative Narrative: Patient is a 55-year-old woman with history of MS. She has a remote history of seizures. states at 1015 her speech became slurred and had difficulty using her right side. She presently is having difficulty speaking. Squad witnessed a generalized tonic-clonic seizure with decorticate posturing of the right upper extremity. Presently she is having difficulty speaking. There appears to be weakness on the right side. Prior similar symptoms: Yes Recent Illness/Hospitalization: No [facility] Medical History (Updated 11/14/20 @ 12:[address] Jered Piper MD) Aortic stenosis Atrial fibrillation COPD (chronic obstructive pulmonary disease) Family history of CVA Hypertension Multiple sclerosis Palpitations Paroxysmal atrial fibrillation Premature atrial contractions Premature ventricular contraction Seizures Tobacco abuse Home Medications hydrochlorothiazide 12.5 mg PO DAILY #1 tab 02/03/15 [Rx Last Taken 02/03/18] lisinopril 10 mg PO DAILY #1 tab 02/03/15 [Rx Last Taken 02/03/18] gabapentin 600 mg PO TIDCM #90 tab 02/04/15 [Rx Last Taken 02/03/18] albuterol sulfate 90 mcg/actuation aerosol inhaler 2 puff INHALATION Q4H PRN #18 g 05/15/18 [Rx Last Taken Unknown] diltiazem HCl 180 mg capsule,extended release 24 hr 180 mg PO DAILY #90 cap 02/23/20 [Rx Last Taken Unknown] potassium chloride 20 mEq tablet,extended release(part/cryst) 20 meq PO DAILY tab 10/03/20 [History Last Taken Unknown] Allergy/AdvReac Type Severity Reaction Status Date / Time lorazepam [From Ativan] AdvReac Severe Other Verified 11/14/20 11:24 Family History Mother Myocardial infarction Hypertension Breast cancer Father CVA (cerebral vascular accident) Myocardial infarction Diabetes CAD (coronary artery disease) Brother CVA (cerebral vascular accident) CAD (coronary artery disease) Sister Afib Surgical History History of total hysterectomy Social History Smoking Status: Current every day smoker tobacco type: cigarettes how long ago did patient quit smokin, 0.5ppd second hand exposure: Yes alcohol intake: never substance use type: does not use caffeine: Yes Type: coffee what type of physical activity do you participate in: none seatbelt use: always do you feel safe at home: Yes ROS ROS ED Review of Systems ROS Unobtainable: due to mental condition and due to mental status Constitutional Constitutional ED: Denies chills, fever(s), subjective or sweats Neurologic Neurologic: Reports weakness Allergic/Immunologic Allergic/Immunologic ED: Denies urticaria EXAM Physical Exam Const Vital Signs: 11/14/20 11:01 11/14/20 11:02 11/14/20 11:12 Temperature 97.7 F L 97.7 F L Temperature Source Temporal Temporal Pulse Rate 124 H 143 H 142 H Respiratory Rate 24 H 23 H 23 H Blood Pressure 114/92 H 167/112 H 167/112 H Blood Pressure Mean 99 130 130 Pulse Ox 97 96 96 Oxygen Delivery Method Room Air Room Air Room Air 11/14/20 11:44 Temperature Temperature Source Pulse Rate 110 H Respiratory Rate 25 H Blood Pressure 110/74 Blood Pressure Mean 86 Pulse Ox 95 Oxygen Delivery Method Room Air Positive well nourished, well developed and obese General Appearance ED: well developed Nutritional Appearance: obese HEENT Reports TM's clear and moist mucous membranes atraumatic Tympanic Membrane ED: Yes TM's clear Eyes PERRL and EOMs intact bilaterally General Eye ED: Negative for pale conjunctiva or scleral icterus Neck no lymphadenopathy and supple Chest Wall inspection of chest normal Resp normal respiratory effort and clear to auscultation bilaterally Cardio Rate: tachycardic GI normal to inspection, nondistended, normoactive bowel sounds, soft to palpation and non-tender Back/Spine no CVA tenderness Extremity normal to inspection General Extremety ED: Negative for deformity or tenderness General Extremity: Negative for deformity Neuro CN's II-XII intact bilaterally Psych Attention / Concentration: other Unable to determine Skin no wounds General Skin Exam: Negative for jaundice Lesions: no lesions Rashes: no rashes STROKE Vital Signs/Narrative: Vital Signs Temp Pulse Resp BP Pulse Ox 11/14/20 11:44 110 H 25 H 110/74 95 11/14/20 11:12 97.7 F L 142 H 23 H 167/112 H 96 11/14/20 11:02 97.7 F L 143 H 23 H 167/112 H 96 11/14/20 11:01 124 H 24 H 114/92 H 97 NIHSS Initial: 1a Level of Consciousness: 1 1b LOC Questions (Score 2 if aphasic/stupor): 2 1c LOC Commands (Only score 1st attempt): 0 2 Best Gaze (If aphasic, use reflexive mvmts.): 0 4 Facial Palsy: 0 5 Motor Arm Right (UN = amputation/fusion): 1 5 Motor Arm Left: 1 6 Motor Leg Right: 0 6 Motor Leg Left: 4 8 Sensory (Aphasia/stupor=0 or 1, coma=2): 0 9 Best Language: 1 10 Dysarthria (mute, coma=2, intubated=UN): 0 11 Extinction and Inattention (only scored if +): 1 Total Score: 11 MDM MDM MDM Narrative Medical decision making narrative: Concern patient may have had a stroke. Monitor reveals a rapid narrow complex tachycardia that appears slightly irregular. Need to rule out embolic phenomenon since she is not on anticoagulant. This may be exacerbation of her MS with seizure. Need to rule out metabolic infectious causes as well. Once patient returns from radiology suite will complete NIH score. TPA was ordered since she had focal neuro deficits. Neurologist [facility] recommended not giving TPA because now she has stuttering and has weakness on the right side. He recommended MRI to evaluate for seizure and MS. He specifically recommended MRI with contrast. This may represent conversion reaction versus other cause. Suspect patient's seizure is due to her MS and she has remote history of seizures and is no longer on anticonvulsant medication. Lab Data Attestation: I reviewed the patient's lab results. Lab results narrative: Patient has mild hyponatremia. CO2 is low with an anion gap which would support witnessed seizure by paramedics. Blood sugar is elevated to 54. Labs: Laboratory Results - last 24 hr 11/14/20 11/14/20 11/14/20 11:05 11:05 11:05 WBC 11.9 H RBC 4.77 Hgb 15.9 H Hct 47.9 H MCV 100.4 H D MCH 33.3 H MCHC 33.2 RDW Std Deviation 50.4 H RDW Coeff of [place] 13.6 Plt Count 125 L MPV 11.5 Immature Gran % (Auto) 0.300 Neut % (Auto) 41.7 L Lymph % (Auto) 46.9 H [place] % (Auto) 8.0 Eos % (Auto) 2.4 Baso % (Auto) 0.7 Absolute Neuts (auto) 5.0 Absolute Lymphs (auto) 5.60 H Nucleated RBC % 0.6 Differential Comment SCANNED PT 14.2 INR 1.2 APTT 33.6 Sodium 135 L Potassium 3.1 L Chloride 98 Carbon Dioxide 18.0 L Anion Gap 19 H BUN 8 Creatinine 0.96 Estim Creat Clear Calc 49.96 Est GFR (MDRD) Af Amer 77 Est GFR (MDRD) Non-Af 64 BUN/Creatinine Ratio 8.3 L Glucose 254 H Calcium 8.3 L Troponin I High Sens 15 Radiography Diagnostic Testing: Radiology Impression Brain CT 11/14/20 11:03 IMPRESSION: 1. No acute intracranial process. 2. Periventricular deep white matter changes could reflect the known multiple sclerosis or may represent chronic deep white matter changes. 3. If symptoms persist, MRI of the brain might be of further value. N.B. : The above Results were Read Back by Bhupendra Deras MD to Jered Piper MD, and understanding confirmed on 11/14/2020 11:28:38 (ET). Electronically Signed: Bhupendra Deras MD at 11:29 EDT Tel , Service support , ADDENDUM: 11/14/20 1137 IMPRESSION: 1. No acute intracranial process. 2. Periventricular deep white matter changes could reflect the known multiple sclerosis or may represent chronic deep white matter changes. 3. If symptoms persist, MRI of the brain might be of further value. N.B. : The above Results were Read Back by Bhupendra Deras MD to Jered Piper MD, and understanding confirmed on 11/14/2020 11:28:38 (ET). Electronically Signed: Bhupendra Deras MD at 11:29 EDT Tel , Service support , Head/Neck CTA 11/14/20 11:04 IMPRESSION: 1. No intracranial great vessel stenosis or occlusion. 2. Mild atherosclerotic changes of the left bulb region without significant stenosis. 3. Patent bilateral vertebral artery with dominant left side. Electronically Signed: Bhupendra Deras MD at 11:57 EDT Tel , Service support , EKG Initial EKG: Attestation: I personally reviewed and interpreted this EKG as follows: Interpretation: Atrial Fibrillation (Ventricular rate is 140. QRS duration 78 ms. QT duration 330 ms. [place] is to the left. There is nonspecific changes and there are premature beats which may represent a variant beats versus premature ventricular beats.) Stroke Documentation Questions Stroke Team Activated: Yes Reviewed Inclusion/Exclusion criteria: Yes Was Patient considered for Endovascular Intervention?: No IV Alteplase (t-PA) Administered: No No contraindications for IV Alteplase (t-PA) administration.: Yes Alteplase (t-PA) risks, benefits, alternative discussed: Yes Not given: Patient refusal: No Critical Care Time Critical Care Time: Yes Critical care time (excluding procedures): 30-74 minutes (31 minutes), Including time spent: (History, physical, review of prior records, documentation, initiation of therapy for A. fib with RVR, consultation with neurologist at [facility]), Discussing w/Patient &/or Family/Electrical Products Sales Engineer, Discussing w/Consultants, A rranging Admission or Transfer and Performing Direct Patient Care at Bedside (IV Cardizem bolus and drip to control A. fib RVR) Discharge Plan Dx/Rx/DC Orders Clinical Impression: Generalized tonic-clonic seizure, Multiple sclerosis, Atrial fibrillation with RVR, Acute hyperglycemia Disposition Disposition: Acute Care [facility]
[2020-11-14 11:22] LABS: Basophil# 0.08 X10^3/uL; Basophil% 0.7 % (0-1); Eosinophil# 0.29 X10^3/uL; Eosinophils% 2.4 % (0-5); Hematocrit 47.9 % (37-47); Hemoglobin 15.9 g/dL (12.0-15.0); Lymphocyte % 46.9 % (19-41); Mean Corp Hgb Conc 33.2 g/dL (32-36); Mean Corpuscular Hgb 33.3 pg (27.0-32.0); Mean Corpuscular Volume 100.4 fL (81-99); Mean Platelet Vol. 11.5 fl (6.2-12.0); Monocyte# 0.96 X10^3/uL; NRBC Flagged by Analyzer 0.6 % (0-5); Neutrophil # 4.97 X10^3/uL (2.7-7.7); Neutrophil % 41.7 % (47-70); POSITIVE DIFFERENTIAL YES; POSITIVE MORPHOLOGY YES; Platelet Count 125 K/mm3 (150-450); RBC Distribution Width CV 13.6 % (11.6-14.6); RBC Distribution Width SD 50.4 fl (35.1-43.9); Red Blood Count 4.77 M/mm3 (4.2-5.4); White Blood Count 11.9 K/mm3 (4.4-11.0)
--- NOTE | 2020-11-14 11:22 | EKG12_ITS ---
Test Reason : STROKE Blood Pressure : / mmHG Vent. Rate : 142 BPM Atrial Rate : 120 BPM P-R Int : 184 ms QRS Dur : 078 ms QT Int : 330 ms P-R-T Axes : 062 -39 050 degrees QTc Int : 507 ms Sinus tachycardia with occasional and consecutive Premature ventricular complexes and Fusion complexe s Left axis deviation Abnormal ECG Confirmed by PARVEEN FARRELL, MANJULA ([id number]), purchase request editor ADI PIERRE ([id number]) on 11/18/2020 10:17:41 AM Referred By: [facility] Confirmed By:MANJULA SAINI MD
[2020-11-14 11:25] LABS: Differential Indicated SCAN CRITERIA MET
[2020-11-14 11:35] LABS: International Normalized Ratio 1.2; Prothrombin Time (Protime)PT. 14.2 SECONDS (11.7-14.9)
[2020-11-14 11:36] LABS: Anion Gap 19 (5-15); BUN 8 mg/dL (7-18); BUN/Creat Ratio 8.3 RATIO (10-20); Calcium,Total 8.3 mg/dL (8.5-10.1); Chloride 98 mmol/L (98-107); Creatinine, Serum 0.96 mg/dL (0.55-1.02); EST Glomerular Filtration Rate 64 mL/min (>60); Est Glom Filt Rate - Afr Amer 77 mL/min (>60); Estimated Creatinine Clearance 49.96 ml/min; Glucose 254 mg/dL (74-106); Partial Thromboplast Time 33.6 Seconds (24.1-36.2); Potassium 3.1 mmol/L (3.5-5.1); Sodium Level 135 mmol/L (136-145); Troponin-I HS 15 pg/mL (3.0-54.0)
[2020-11-14] MEDS: dilTIAZem 25 MG/5 ML Vial 20 MG IV BOLUS (11:36)
[2020-11-14 11:54] LABS: Differential Comment SCANNED
--- NOTE | 2020-11-14 12:59 | ECHOCS_ITS ---
Version 2 Reason For Study: Afib, Aflutter Procedure This was a 2D Doppler, Color Flow transthoracic echocardiogram. Contrast injection was performed. Exam performed portable in patient room. Left Ventricle Normal LV size. Left ventricular systolic function is normal. The estimated ejection fraction is 60 %. Stage 2 diastolic dysfunction. Right Ventricle Normal RV size. Normal systolic function. Atria Normal left atrium. Normal right atrium. Bubble contrast study negative for right to left interatrial shunt. Mitral Valve Normal mitral valve. Tricuspid Valve Normal tricuspid valve. Mild tricuspid valve insufficiency. Aortic Valve Trisinus/trileaflet aortic valve. Mild diffuse aortic valve thickening. Peak aortic valve gradient 18 mmHg. Mean aortic valve gradient 9 mmHg. Mild aortic stenosis. Great Vessels Normal aortic root. The pulmonary artery is normal size. Normal inferior vena cava. Pericardium/Pleural No pericardial effusion. Medication Performed a rapid injection of agitated mix of 9 cc saline and 1cc air to assess for atrial septal defect. Diluted definity 3ml given slow IV push to enhance endocardial definition. MMode/2D Measurements & Calculations LVIDd: 4.5 cm IVSd: 1.0 cm LVOT diam: 2.0 cm LVIDs: 2.5 cm LVPWd: 0.95 cm LVOT area: 3.2 cm2 RVDd: 2.7 cm FS: 42.8 % Ao root diam: 3.1 cm LAV(MOD-bp): 35.1 ml LVAd ap4: 27.8 cm2 LAV(MOD-bp) Indexed: 17.5 ml/m2 LVLd ap4: 8.2 cm LAV(MOD-sp2): 36.6 ml EDV(MOD-sp4): 76.7 ml LAV(MOD-sp4): 33.1 ml EDV(sp4-el): 79.8 ml LVAs ap4: 14.1 cm2 LVLs ap4: 6.3 cm ESV(MOD-sp4): 27.2 ml ESV(sp4-el): 27.2 ml EF(MOD-sp4): 64.5 % EF(sp4-el): 65.9 % SV(MOD-sp4): 49.5 ml SV(sp4-el): 52.6 ml LA A4 area: 14.9 cm2 LA dimension(2D): 3.7 cm RA A4 area: 11.2 cm2 Doppler Measurements & Calculations MV E max tristan: 60.0 cm/sec Lat Peak E' Tristan: 7.4 cm/sec Med Peak E' Tristan: 7.5 cm/sec MV A max tristan: 66.1 cm/sec E/E' lat: 8.2 E/E' med: 8.0 MV E/A: 0.91 Ao V2 max: 214.0 cm/sec LV V1 max: 108.3 cm/sec SV(LVOT): 68.7 ml Ao max P.3 mmHg LV V1 max P.7 mmHg Ao V2 mean: 144.8 cm/sec LV V1 mean P.8 mmHg Ao mean P.4 mmHg LV V1 mean: 81.1 cm/sec Ao V2 VTI: 40.0 cm LV V1 VTI: 21.5 cm CANDE(I,D): 1.7 cm2 CANDE(V,D): 1.6 cm2 TR max tristan: 195.1 cm/sec TR max P.2 mmHg ECHO/Echo Complete W/ Contrast Interpretation Summary Normal LV size. Left ventricular systolic function is normal. The estimated ejection fraction is 60 %. Stage 2 diastolic dysfunction. Bubble contrast study negative for right to left interatrial shunt. Mild aortic stenosis. Contrast injection was performed. Ordering Physician: Miguel Garcia Referring Physician: Satya Tinoco Performed By: Kylee Sam, ONELIA, RVT
[2020-11-14] MEDS: levETIRAcetam IV 1,000 MG/100 ML BAG 400 MG IV (13:01)
--- NOTE | 2020-11-14 13:21 | CON.PCM.CA_ITS ---
Assessment & Plan Assessment/Plan (1) Hypokalemia: (2) Asthma-COPD overlap syndrome: (3) Palpitations: (4) Premature atrial contractions: (5) Paroxysmal atrial fibrillation: PLAN: 55-year-old patient, presented to the ER with with appearance symptoms of seizure disorder Evaluated for TIA/stroke with a CT head negative Patient known to have history of multiple sclerosis, also has paroxysmal atrial fibrillation and she follow-up, with global risk management director Here at [facility] Dr. Alvarado time patient seen and evaluated with 2 years ago. She had no symptoms of chest pain Patient has been on Cardizem at home she has a history of smoking, COPD and multiple sclerosis. Cardiac recommendation and plan; 1. 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 Patient will be monitored in PCU/cardiac telemetry 3. Echocardiogram to evaluate and assess LV function in particular evaluate the aortic valve. 4. Patient has hypokalemia and to correct the electrolyte to keep the serum potassium level within normal. 5. Patient scheduled to undergo MRI of the brain and will discuss cardiac care plan in detail following the MRI and with the results of the echo and carpet cleaning technician. HPI Consult Data Date of Consult: 11/14/20 HPI Narrative Reason for Consultation: Evaluate for paroxysmal atrial fibrillation HPI Narrative: TROY VEGA, is a 55 F who presents [facility] Medical History (Updated 11/14/20 @ 12:[address] Jered Piper MD) Aortic stenosis Atrial fibrillation COPD (chronic obstructive pulmonary disease) Family history of CVA Hypertension Multiple sclerosis Palpitations Paroxysmal atrial fibrillation Premature atrial contractions Premature ventricular contraction Seizures Tobacco abuse Home Medications hydrochlorothiazide 12.5 mg PO DAILY #1 tab 02/03/15 [Rx Last Taken 02/03/18] lisinopril 10 mg PO DAILY #1 tab 02/03/15 [Rx Last Taken 02/03/18] gabapentin 600 mg PO TIDCM #90 tab 02/04/15 [Rx Last Taken 02/03/18] albuterol sulfate 90 mcg/actuation aerosol inhaler 2 puff INHALATION Q4H PRN #18 g 05/15/18 [Rx Last Taken Unknown] diltiazem HCl 180 mg capsule,extended release 24 hr 180 mg PO DAILY #90 cap 02/23/20 [Rx Last Taken Unknown] potassium chloride 20 mEq tablet,extended release(part/cryst) 20 meq PO DAILY tab 10/03/20 [History Last Taken Unknown] Allergy/AdvReac Type Severity Reaction Status Date / Time lorazepam [From Ativan] AdvReac Severe Other Verified 11/14/20 11:24 Family History Mother Myocardial infarction Hypertension Breast cancer Father CVA (cerebral vascular accident) Myocardial infarction Diabetes CAD (coronary artery disease) Brother CVA (cerebral vascular accident) CAD (coronary artery disease) Sister Afib Surgical History History of total hysterectomy Social History Smoking Status: Current every day smoker tobacco type: cigarettes how long ago did patient quit smokin, 0.5ppd second hand exposure: Yes alcohol intake: never substance use type: does not use caffeine: Yes Type: coffee what type of physical activity do you participate in: none seatbelt use: always do you feel safe at home: Yes Physical Exam Narrative Patient seen and evaluated at bedside in the ER at [facility] Family at bedside at time of evaluation 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 Chest examination clear to auscultation bilaterally Examination abdomen soft Examination lower extremity no clubbing no cyanosis no lower extremity edema. Objective Data Vital Signs: Vital Signs Temp Pulse Resp BP Pulse Ox 97.0 F L 100 13 101/76 93 11/14/20 13:08 11/14/20 13:08 11/14/20 13:08 11/14/20 13:08 11/14/20 13:08 Oxygen Delivery Method Room Air Weight: 229 lb 11.547 oz Body Mass Index (BMI) 43.4 Lab / Micro Data Result Diagrams: 11/14/20 11:05 11/14/20 11:05 Labs: Laboratory Results - last 24 hr 11/14/20 11:05: WBC 11.9 H, RBC 4.77, Hgb 15.9 H, Hct 47.9 H, MCV 100.4 H D, MCH 33.3 H, MCHC 33.2, RDW Std Deviation 50.4 H, RDW Coeff of Ayaka 13.6, Plt Count 125 L, MPV 11.5, Immature Gran % (Auto) 0.300, Neut % (Auto) 41.7 L, Lymph % (Auto) 46.9 H, [place] % (Auto) 8.0, Eos % (Auto) 2.4, Baso % (Auto) 0.7, Absolute Neuts (auto) 5.0, Absolute Lymphs (auto) 5.60 H, Nucleated RBC % 0.6, Differential Comment SCANNED 11/14/20 11:05: PT 14.2, INR 1.2, APTT 33.6 11/14/20 11:05: Sodium 135 L, Potassium 3.1 L, Chloride 98, Carbon Dioxide 18.0 L, Anion Gap 19 H, BUN 8, Creatinine 0.96, Estim Creat Clear Calc 49.96, Est GFR (MDRD) Af Amer 77, Est GFR (MDRD) Non-Af 64, BUN/Creatinine Ratio 8.3 L, Glucose 254 H, Calcium 8.3 L, Troponin I High Sens 15 Micro: Microbiology 11/14/20 11:56 Nasal Secretion SARS-CoV-2 Antigen (Rapid) - Final Cardiology Labs/Tests 11/14/20 11:05: WBC 11.9 H, RBC 4.77, Hgb 15.9 H, Hct 47.9 H, MCV 100.4 H D, MCH 33.3 H, MCHC 33.2, Plt Count 125 L, MPV 11.5, Immature Gran % (Auto) 0.300, Neut % (Auto) 41.7 L, Lymph % (Auto) 46.9 H, [place] % (Auto) 8.0, Eos % (Auto) 2.4, Baso % (Auto) 0.7, Absolute Neuts (auto) 5.0, Nucleated RBC % 0.6 11/14/20 11:05: PT 14.2, INR 1.2, APTT 33.6 11/14/20 11:05: Sodium 135 L, Potassium 3.1 L, Chloride 98, Carbon Dioxide 18.0 L, Anion Gap 19 H, BUN 8, Creatinine 0.96, Est GFR (MDRD) Af Amer 77, Est GFR (MDRD) Non-Af 64, BUN/Creatinine Ratio 8.3 L, Glucose 254 H, Calcium 8.3 L Rhythm: Normal sinus with PACs EKG: Normal sinus with PACs Radiography Diagnostic Testing: Radiology Impression Brain CT 11/14/20 11:03 IMPRESSION: 1. No acute intracranial process. 2. Periventricular deep white matter changes could reflect the known multiple sclerosis or may represent chronic deep white matter changes. 3. If symptoms persist, MRI of the brain might be of further value. N.B. : The above Results were Read Back by Bhupendra Deras MD to Jered Piper MD, and understanding confirmed on 11/14/2020 11:28:38 (ET). Electronically Signed: Bhupendra Deras MD at 11:29 EDT Tel , Service support , ADDENDUM: 11/14/20 1137 IMPRESSION: 1. No acute intracranial process. 2. Periventricular deep white matter changes could reflect the known multiple sclerosis or may represent chronic deep white matter changes. 3. If symptoms persist, MRI of the brain might be of further value. N.B. : The above Results were Read Back by Bhupendra Deras MD to Jered Piper MD, and understanding confirmed on 11/14/2020 11:28:38 (ET). Electronically Signed: Bhupendra Deras MD at 11:29 EDT Tel , Service support , Chest X-Ray 11/14/20 11:03 IMPRESSION: No active pulmonary disease. Electronically Signed: Bhupendra Deras MD at 12:28 EDT Tel , Service support , Head/Neck CTA 11/14/20 11:04 IMPRESSION: 1. No intracranial great vessel stenosis or occlusion. 2. Mild atherosclerotic changes of the left bulb region without significant stenosis. 3. Patent bilateral vertebral artery with dominant left side. Electronically Signed: Bhupendra Deras MD at 11:57 EDT Tel , Service support , ADDENDUM: 11/14/20 1218 IMPRESSION: 1. No intracranial great vessel stenosis or occlusion. 2. Mild atherosclerotic changes of the left bulb region without significant stenosis. 3. Patent bilateral vertebral artery with dominant left side. N.B. : The above Results were Read Back by Bhupendra Deras MD to Jered Piper MD, and understanding confirmed on 11/14/2020 12:11:58 (ET). Electronically Signed: Bhupendra Deras MD at 11:57 EDT Tel , Service support ,
--- NOTE | 2020-11-14 13:22 | HP.PCM.HOS_ITS ---
Documented by User: Gilma Tracy NP, MARKETING INTERN-C 11/14/20 13:59 HPI - General HPI Narrative TROY VEGA, is a 55 F who presents to the emergency room due to speech changes. reports patient was sitting on the couch this morning when she suddenly developed difficulty with her speech, abnormal movements that looked like Parkinson's, one episode of emesis and left-sided sensory changes/weakness. Upon examination in the emergency room, patient continues to have speech difficulty however no other neurologic or focal deficits noted. provides much of HPI due to patient difficulty finding words. Patient denies any loss of bowel or bladder incontinence. She reports a seizure history however has not had a seizure in many years and was taken off of antiepileptics. She denies history of TIA/CVA. She reports a past medical history of paroxysmal atrial fibrillation, hypertension, MS, tobacco dependence, asthma/COPD overlap syndrome, history of seizures, obesity, probable YANNICK. [facility] Medical History (Updated 11/14/20 @ 13:34 by Gilma Tracy NP, MARKETING INTERN-C) Aortic stenosis Atrial fibrillation COPD (chronic obstructive pulmonary disease) Family history of CVA Hypertension Multiple sclerosis Palpitations Paroxysmal atrial fibrillation Premature atrial contractions Premature ventricular contraction Seizures Tobacco abuse Home Medications albuterol sulfate 90 mcg/actuation aerosol inhaler 2 puff INHALATION Q4H PRN #18 g 05/15/18 [Rx Last Taken Unknown] potassium chloride 20 mEq tablet,extended release(part/cryst) 20 meq PO DAILY tab 10/03/20 [History Last Taken Unknown] diltiazem HCl 180 mg PO DAILY 11/14/20 [History Last Taken 11/14/20] gabapentin 600 mg PO TIDCM 11/14/20 [History Last Taken 11/13/20] hydrochlorothiazide 12.5 mg PO DAILY 11/14/20 [History Last Taken 11/14/20] lisinopril 10 mg PO DAILY 11/14/20 [History Last Taken 11/14/20] Allergy/AdvReac Type Severity Reaction Status Date / Time lorazepam [From Ativan] AdvReac Severe Other Verified 11/14/20 11:24 Family History Mother Myocardial infarction Hypertension Breast cancer Father CVA (cerebral vascular accident) Myocardial infarction Diabetes CAD (coronary artery disease) Brother CVA (cerebral vascular accident) CAD (coronary artery disease) Sister Afib Surgical History History of total hysterectomy Social History Smoking Status: Current every day smoker tobacco type: cigarettes how long ago did patient quit smokin, 0.5ppd second hand exposure: Yes alcohol intake: never substance use type: does not use caffeine: Yes Type: coffee what type of physical activity do you participate in: none seatbelt use: always do you feel safe at home: Yes ROS Constitutional Constitutional: Denies change in weight, chills, fatigue or fever(s) Cardiovascular Cardiovascular: Denies chest pain, edema, lightheadedness, palpitations or synco pe Respiratory/Chest Respiratory/Chest: Denies cough, dyspnea, productive cough, shortness of breath at rest, shortness of breath with exertion or wheezing Gastrointestinal Gastrointestinal: Denies abdominal pain, constipation, diarrhea, nausea or vomiting Genitourinary Genitourinary: Denies burning urination, difficulty urinating, dysuria, hematuria, urinary frequency, urinary incontinence or urinary urgency Musculoskeletal Musculoskeletal: Denies back pain, joint pain or muscle weakness Integumentary Integumentary: Denies erythema, lesions, rash or wounds Neurologic Neurologic: Reports abnormal speech, numbness, paresthesias, seizure-like activity and other Details: Speech changes, left-sided sensory changes with transient weakness, seizure-like activity ; Denies confusion, dizziness, focal weakness or syncope Psychiatric Psychiatric: Denies anxiety or depression Hematologic/Lymphatic Hematologic/Lymphatic: Denies anemia, easy bleeding or easy bruising Allergic/Immunologic Allergic/Immunologic: Denies hives or asthma Vital Signs Vital Signs Vital Signs: 11/14/20 11:01 11/14/20 11:02 11/14/20 11:03 Temperature 97.7 F L Temperature Source Temporal Pulse Rate 124 H 143 H Respiratory Rate 24 H 23 H Blood Pressure 114/92 H 167/112 H Blood Pressure Mean 99 130 Pulse Ox 97 96 95 Oxygen Delivery Method Room Air Room Air Nasal Cannula 11/14/20 11:12 11/14/20 11:44 11/14/20 12:03 Temperature 97.7 F L Temperature Source Temporal Pulse Rate 142 H 110 H 108 H Respiratory Rate 23 H 25 H 20 H Blood Pressure 167/112 H 110/74 94/61 Blood Pressure Mean 130 86 72 Pulse Ox 96 95 95 Oxygen Delivery Method Room Air Room Air Room Air 11/14/20 12:33 11/14/20 13:03 11/14/20 13:08 Temperature 97.0 F L Temperature Source Temporal Pulse Rate 94 98 100 Respiratory Rate 17 17 13 Blood Pressure 117/72 101/76 101/76 Blood Pressure Mean 87 84 84 Pulse Ox 94 94 93 Oxygen Delivery Method Room Air Room Air Room Air Weight Weight: 229 lb 11.547 oz Body Mass Index (BMI) 43.4 Physical Exam Const alert, oriented x3 and no apparent distress Orientation / Consciousness: awake, oriented to person, oriented to place and oriented to time HEENT normocephalic and moist oral mucous membranes Eyes PERRL, EOMs intact bilaterally and conjunctivae normal Neck no lymphadenopathy Resp normal respiratory effort and clear to auscultation bilaterally Cardio no murmurs Cardio Narrative: Atrial fibrillation with RVR Peripheral Pulses: pulses 2+ throughout GI normal to inspection, nondistended, normoactive bowel sounds, non-tender and non-distended Extremity normal to inspection Skin no rashes or lesions noted Lesions: no lesions Rashes: no rashes Trauma: no lacerations or abrasions Neuro CN's II-XII intact bilaterally, no focal motor deficits, no sensory deficits noted and deep tendon reflexes 2+ bilaterally Speech: speech abnormal Details: Positive for stuttering and other (Slow speech) Psych mental status grossly normal and affect normal Results Lab / Micro Data Result Diagrams: 11/14/20 11:05 11/14/20 11:05 Labs: Laboratory Results - last 24 hr 11/14/20 11:05: WBC 11.9 H, RBC 4.77, Hgb 15.9 H, Hct 47.9 H, MCV 100.4 H D, MCH 33.3 H, MCHC 33.2, RDW Std Deviation 50.4 H, RDW Coeff of Ayaka 13.6, Plt Count 125 L, MPV 11.5, Immature Gran % (Auto) 0.300, Neut % (Auto) 41.7 L, Lymph % (Auto) 46.9 H, [place] % (Auto) 8.0, Eos % (Auto) 2.4, Baso % (Auto) 0.7, Absolute Neuts (auto) 5.0, Absolute Lymphs (auto) 5.60 H, Nucleated RBC % 0.6, Differ ential Comment SCANNED 11/14/20 11:05: PT 14.2, INR 1.2, APTT 33.6 11/14/20 11:05: Sodium 135 L, Potassium 3.1 L, Chloride 98, Carbon Dioxide 18.0 L, Anion Gap 19 H, BUN 8, Creatinine 0.96, Estim Creat Clear Calc 49.96, Est GFR (MDRD) Af Amer 77, Est GFR (MDRD) Non-Af 64, BUN/Creatinine Ratio 8.3 L, Glucose 254 H, Calcium 8.3 L, Troponin I High Sens 15 Micro: Microbiology 11/14/20 11:56 Nasal Secretion SARS-CoV-2 Antigen (Rapid) - Final Radiology Impression Brain CT 11/14/20 11:03 IMPRESSION: 1. No acute intracranial process. 2. Periventricular deep white matter changes could reflect the known multiple sclerosis or may represent chronic deep white matter changes. 3. If symptoms persist, MRI of the brain might be of further value. N.B. : The above Results were Read Back by Bhupendra Deras MD to Jered Piper MD, and understanding confirmed on 11/14/2020 11:28:38 (ET). Electronically Signed: Bhupendra Deras MD at 11:29 EDT Tel , Service support , ADDENDUM: 11/14/20 1137 IMPRESSION: 1. No acute intracranial process. 2. Periventricular deep white matter changes could reflect the known multiple sclerosis or may represent chronic deep white matter changes. 3. If symptoms persist, MRI of the brain might be of further value. N.B. : The above Results were Read Back by Bhupendra Deras MD to Jered Piper MD, and understanding confirmed on 11/14/2020 11:28:38 (ET). Electronically Signed: Bhupendra Deras MD at 11:29 EDT Tel , Service support , Chest X-Ray 11/14/20 11:03 IMPRESSION: No active pulmonary disease. Electronically Signed: Bhupendra Deras MD at 12:28 EDT Tel , Service support , Head/Neck CTA 11/14/20 11:04 IMPRESSION: 1. No intracranial great vessel stenosis or occlusion. 2. Mild atherosclerotic changes of the left bulb region without significant stenosis. 3. Patent bilateral vertebral artery with dominant left side. Electronically Signed: Bhupendra Deras MD at 11:57 EDT Tel , Service support , ADDENDUM: 11/14/20 1218 IMPRESSION: 1. No intracranial great vessel stenosis or occlusion. 2. Mild atherosclerotic changes of the left bulb region without significant stenosis. 3. Patent bilateral vertebral artery with dominant left side. N.B. : The above Results were Read Back by Bhupendra Deras MD to Jered Piper MD, and understanding confirmed on 11/14/2020 12:11:58 (ET). Electronically Signed: Bhupendra Deras MD at 11:57 EDT Tel , Service support , Assessment & Plan Assessment/Plan (1) Alteration in speech: PLAN: 1. Speech changes/Aphasia-reported transient left-sided weakness, abnormal jerking movements. Continues to have speech changes, no other neurologic symptoms or focal deficits on exam. [facility] telestroke consulted from ED, plan for work-up for MS flare, seizures, rule out CVA. MRI of brain with and without contrast. Echocardiogram. PT/OT/ST. EEG. Aspirin, statin. 2. History of seizure-not on antiepileptic regimen. Initiated on IV Keppra. Obtain EEG. 3. Paroxysmal atrial fibrillation-on Cardizem at baseline. Not on oral anticoagulation. Cardizem drip initiated in ER. Cardiology consulted. Low- dose beta-eveline added. Echocardiogram ordered. 4. History of prediabetes-elevated glucose. Check hemoglobin A1c. 5. Elevated liver enzymes-CT of abdomen and pelvis 11/04/2020 demonstrated fatty liver with hepatomegaly. Trend liver profile. 6. Hypertension-continue lisinopril, HCTZ. 7. MS- not on regimen. Follows with Dr. Leo Mcgrath, Internal medicine/MS specialist. 8. Tobacco dependence- encouraged cessation. Nicotine replacement patch. 9. Asthma/COPD overlap syndrome-as needed albuterol aerosol. Follows with Dr. Mazariegos, pulmonary medicine. 10. Obesity- encouraged diet and lifestyle modifications. Nutrition consult. 11. Probable YANNICK-recommended sleep study, unclear if patient has yet had this work-up. DVT prophylaxis- heparin sc Vaccination status: Fully vaccinated for Covid with Moderna. This patient was seen by BISI Gonzales under the supervision of Dr. Garcia. Documented by User: Dr. Miguel Garcia, 11/14/20 20:42 HPI - General General Date of Admission: 11/14/20 [facility] Medical History (Updated 11/14/20 @ 13:34 by Gilma Tracy NP, MARKETING INTERN-C) Aortic stenosis Atrial fibrillation COPD (chronic obstructive pulmonary disease) Family history of CVA Hypertension Multiple sclerosis Palpitations Paroxysmal atrial fibrillation Premature atrial contractions Premature ventricular contraction Seizures Tobacco abuse Home Medications albuterol sulfate 90 mcg/actuation aerosol inhaler 2 puff INHALATION Q4H PRN #18 g 05/15/18 [Rx Last Taken Unknown] potassium chloride 20 mEq tablet,extended release(part/cryst) 20 meq PO DAILY tab 10/03/20 [History Last Taken Unknown] diltiazem HCl 180 mg PO DAILY 11/14/20 [History Last Taken 11/14/20] gabapentin 600 mg PO TIDCM 11/14/20 [History Last Taken 11/13/20] hydrochlorothiazide 12.5 mg PO DAILY 11/14/20 [History Last Taken 11/14/20] lisinopril 10 mg PO DAILY 11/14/20 [History Last Taken 11/14/20] Allergy/AdvReac Type Severity Reaction Status Date / Time lorazepam [From Ativan] AdvReac Severe Other Verified 11/14/20 11:24 Family History Mother Myocardial infarction Hypertension Breast cancer Father CVA (cerebral vascular accident) Myocardial infarction Diabetes CAD (coronary artery disease) Brother CVA (cerebral vascular accident) CAD (coronary artery disease) Sister Afib Surgical History History of total hysterectomy Social History Smoking Status: Current every day smoker tobacco type: cigarettes how long ago did patient quit smokin, 0.5ppd second hand exposure: Yes alcohol intake: never substance use type: does not use caffeine: Yes Type: coffee what type of physical activity do you participate in: none seatbelt use: always do you feel safe at home: Yes Results Lab / Micro Data Result Diagrams: 11/14/20 11:05 11/14/20 11:05 Charges/Coding Addendum Addendum: Patient was seen and examined independently of Gilma Tracy today, she came to the ER after experiencing a seizure at home, teleneurology was consulted on the patient, she underwent a CT of her head neck which showed no evidence of stroke or occlusive blood vessel disease. Patient has history of seizure disorder and MS, patient stated to me that she takes gabapentin for seizure disorder. On examination she appeared in good health and spirits, she does not appear to be in any distress. Vital signs as documented. Skin warm and dry and without overt rashes. Neck without JVD, thyroid appears normal, trachea is midline, neck is supple. Lungs clear, normal air movement was noted. Heart exam notable for regular rhythm, normal sounds and absence of murmurs, rubs or gallops. Abdomen unremarkable and without evidence of organomegaly, masses, or abdominal aortic enlargement, bowel sounds are present in all 4 quadrants, no abdominal tenderness was noted. Extremities nonedematous, no cyanosis was noted, no clubbing was noted. Neuro: Cranial nerves II through XII are grossly intact, no focal motor deficits were noted, sensation to light touch and pinprick is intact, motor exam 5/5 throughout. Psych: Patient is alert and oriented x3, she does not appear anxious or depressed, she does not appear agitated. Patient initially was found to be in A. fib with RVR, she was started on Cardizem drip in the emergency room, she was admitted to PCU where she converted to normal sinus rhythm. I contacted cardiology prior to her transfer to PCU and cardiology saw her in consultation and recommended a beta-eveline. She will have an echocardiogram done tomorrow as well as an MRI with and without contrast due to her history of MS. I have reviewed Gilma Tracy's history and physical including her medical assessment and plan of care and endorse it. Visit Charges Inpatient E&M: 96086 Init Hosp L3
[2020-11-14 17:14] LABS: Hemoglobin A1c 5.8 % (3.8-5.6)
[2020-11-14 17:19] LABS: AST(SGOT) 184 U/L (15-37); Alanine Aminotransfer ALT/SGPT 123 U/L (13-56); Albumin, Serum 3.4 g/dL (3.2-5.0); Alkaline Phosphatase 223 U/L (45-117); Bilirubin, Direct 1.01 mg/dL (0.00-0.30); Globulin 3.9 g/dL (2.2-4.2); Magnesium 1.3 mg/dL (1.6-2.6); Protein, Total 7.3 g/dL (6.4-8.2); Thyroid Stim Hormone (TSH) 4.91 uIU/mL (0.358-3.74)
--- NOTE | 2020-11-14 17:22 | PCS.PANDOC ---
PANDEMIC DOCUMENTATION INITIATED: Date: 10/18/2020 Time: 190
--- NOTE | 2020-11-14 17:54 | EKG12_ITS ---
Test Reason : Blood Pressure : / mmHG Vent. Rate : 082 BPM Atrial Rate : 082 BPM P-R Int : 164 ms QRS Dur : 082 ms QT Int : 416 ms P-R-T Axes : 049 -33 033 degrees QTc Int : 486 ms Sinus rhythm with Premature atrial complexes Left axis deviation Prolonged QT Abnormal ECG Confirmed by DANA FARRELL, ARLENE ([id number]), manager editorial ADI PIERRE ([id number]) on 11/16/2020 10:51:29 AM Referred By: DARBY Confirmed By:ARLENE CORTEZ MD
[2020-11-14] MEDS: 0.9% Saline Lock 10 ML Syringe IV (17:56)
[2020-11-14] MEDS: Metoprolol Tartrate 25 MG Tablet PO ×2 (17:59→20:57)
[2020-11-14] MEDS: Potassium Chloride Oral Tablet 20 MEQ 40 MEQ PO (17:59)
[2020-11-14] MEDS: Insulin Lispro 100 UNIT/ML INSULN.PEN SC ×2 (17:59→20:57)
[2020-11-14 18:00] LABS: Bedside Glucose 181 mg/dL (70-110)
[2020-11-14] MEDS: Gabapentin 600 MG Tablet PO (18:51)
[2020-11-14] MEDS: levETIRAcetam 500 MG Tablet PO (20:57)
[2020-11-14] MEDS: Atorvastatin Calcium 80 MG Tablet PO (20:57)
[2020-11-14] MEDS: Heparin Injection (Vial) 5,000 UNIT/ML VIAL 5000 UNIT SC (21:00)
[2020-11-14 21:01] LABS: Bedside Glucose 205 mg/dL (70-110)
[2020-11-15] VITALS (8 sets, daily range): BP systolic 97–114; BP diastolic 69–74; PULSE 52–72; RESP 18; TEMP 36.2–37; O2SAT 97–98; BMI 42.1
--- NOTE | 2020-11-15 01:19 | NURSING ---
NIHSS done late d/t transporting another pt to ICU. MIKAELA Vera.
--- NOTE | 2020-11-15 01:24 | NURSING ---
Abrhaam removed last evening 11/14 per pt request, no indication for Abraham - was inserted in ED. Pt up ambulating to bathroom and voiding well. MIKAEAL Vera.
[2020-11-15] MEDS: 0.9% Saline Lock 10 ML Syringe IV (05:24)
[2020-11-15] MEDS: Insulin Lispro 100 UNIT/ML INSULN.PEN SC ×3 (06:31→16:09)
[2020-11-15 06:35] LABS: Bedside Glucose 175 mg/dL (70-110)
[2020-11-15 06:43] LABS: Anion Gap 8 (5-15); BUN 8 mg/dL (7-18); BUN/Creat Ratio 14.4 RATIO (10-20); Calcium,Total 8.4 mg/dL (8.5-10.1); Chloride 101 mmol/L (98-107); Creatinine, Serum 0.55 mg/dL (0.55-1.02); EST Glomerular Filtration Rate 121 mL/min (>60); Est Glom Filt Rate - Afr Amer 146 mL/min (>60); Estimated Creatinine Clearance 87.21 ml/min; Glucose 152 mg/dL (74-106); Potassium 3.2 mmol/L (3.5-5.1); Sodium Level 134 mmol/L (136-145)
[2020-11-15] MEDS: Lisinopril 10 MG Tablet PO (08:27)
[2020-11-15] MEDS: levETIRAcetam 500 MG Tablet PO (08:27)
[2020-11-15] MEDS: Potassium Chloride Oral Tablet 20 MEQ PO (08:27)
[2020-11-15] MEDS: Gabapentin 600 MG Tablet PO ×3 (08:27→16:13)
[2020-11-15] MEDS: Metoprolol Tartrate 25 MG Tablet PO (08:28)
[2020-11-15] MEDS: Aspirin E.C. 81 MG Tablet PO (08:28)
[2020-11-15] MEDS: Heparin Injection (Vial) 5,000 UNIT/ML VIAL 5000 UNIT SC (08:29)
--- NOTE | 2020-11-15 09:00 | MRI_ITS ---
STUDY: MRI BRAIN WITH AND WITHOUT CONTRAST REASON FOR EXAM: Female, 55 years old. seizure, MS, LEFT SIDED WEAKNESS TECHNIQUE: Standardized multiplanar fat and water weighted pulse sequences were obtained. IV Yes YES was administered for the contrast portion of the examination. COMPARISON: CT of the head dated 11/14/2020 FINDINGS: Normal size of the ventricles and extra-axial spaces for the patient''s age. There are multiple confluent periventricular white matter hyperintensities, consistent with history of multiple sclerosis. There is no evidence of restricted diffusion or enhancement to suggest active demyelination. There is mild thinning of the corpus callosum. There is no demonstrated infratentorial disease. Normal bilateral basal ganglia. Normal thalami. There is no extra-axial fluid accumulation. There is no enhancing intra-axial or extra-axial abnormality. Normal sella turcica, pituitary gland, infundibular stalk, optic chiasm and hypothalamus. Normal tectal plate and pineal gland. Normal midbrain, vernell and medulla. Normal cerebellum. MRI/Brain W/WO Contrast IMPRESSION: No acute intracranial abnormality or masses. Electronically Signed: Mary Ann Rodriguez MD at 10:30 EDT Tel , Service support ,
--- NOTE | 2020-11-15 12:33 | TELEMED_ITS ---
[facility] Tele[facility] has confirmed receipt of a request for visit. This document confirms receipt of the order initiating the consult. To find the results of the consultation, please view the patient's reports for the scanned Telemed Consult.
[2020-11-15 12:41] LABS: Bedside Glucose 194 mg/dL (70-110)
--- NOTE | 2020-11-15 13:00 | CASEMGMT ---
RN ALENA Face to Face with patient for initial transition planning/care coordination assessment. RN CM introduced self and role at [facility]. Patient lying in bed, alert and oriented, significant other at bedside. Patient willing to participate in assessment and is able to answer all questions appropriately. Care providers, pharmacy, and demographics verified. Patient wishes to discharge home and would like outpatient therapy. Patient states she has no further needs or concerns at this time. CM to follow for discharge planning needs that may arise. PCP: Alejandrina Specialists: Iva glacing machine tender Preferred Pharmacy: [facility] Insurance: [employer] Prescription Benefit: yes Living Will/HPOA: none LNOK: significant other Living Arrangements: Patient lives with significant other in a single floor duplex with 3 steps and railing to enter the home. Patient states she is independent at home for self care. Transportation: significant other DME/HHC: Patient states she grab bar at home. Will monitor for WW and tub bench and has no preference for DME company. Patient would like outpatient therapy and prefers [facility] Disposition Plan: Patient to discharge home with outpatient therapy, family support, and follow-up plans in place. Anneliese BOWLINGN, RN, CM
--- NOTE | 2020-11-15 13:20 | CASEMGMT ---
Speech is recommending OP speech to be set up and pt would also like PT/OT added and would like referral faxed to [facility]. Referral faxed to [facility]. Per PT/OT, pt would also benefit from a WW and extended tub bench and pt states preference for [employer]. Extended tub bench may not be covered by pt's insurance but WW should be and order faxed to [employer]. Pt updated on all, voices understanding.
--- NOTE | 2020-11-15 15:30 | PCM.DC ---
Discharge Instructions Diet Discharge Diet: Carb Control Diet Activity Discharge Activity: Return to Normal Activity Dressing / Incision Call your doctor if you observe: Numbness or Tingling, Shortness of breath, Dizziness and Chest pain Follow Up Care Test Results: Test results from this visit will be discussed in further detail at your follow-up appointment, if applicable. Discharge Plan Admission Admit Date/Time: 11/14/20 12:59 Primary Reason for Your Visit: Aphasia, seizure Attending Provider: Miguel Garcia Primary Care Provider: Satya Tinoco Consulting Providers: Kori Moody Discharge Orders/Prescriptions Prescriptions: New levetiracetam 500 mg Tablet 500 mg PO BID Qty: 60 RF: 0 metoprolol tartrate 25 mg Tablet 25 mg PO BID Qty: 60 RF: 0 Continued Ventolin HFA 90 mcg/actuation HFA aerosol inhaler 2 puff INHALATION Q4H PRN (Reason: shortness of breath or wheezing) Qty: 18 RF: 2 potassium chloride 20 mEq tablet,ER particles/crystals 20 meq PO DAILY RF: 0 gabapentin 600 MG tablet 600 mg PO TIDCM RF: 0 diltiazem HCl 180 mg capsule,extended release 24hr 180 mg PO DAILY RF: 0 lisinopril 20 MG tablet 10 mg PO DAILY RF: 0 hydrochlorothiazide 25 MG tablet 12.5 mg PO DAILY RF: 0 Referrals / Follow Up: Satya Tnioco MD [Primary Care Provider] - In 1 Week Carter Alvarado MD [STAFF PHYSICIAN] - Within 2 Weeks (May see FIRE SAFETY DIRECTOR/PA) Sidney Orr MD [STAFF PHYSICIAN] - Within 1 Month Disposition Disposition (needs filled in before D/C Order can be placed): Home, Self Care
--- NOTE | 2020-11-15 15:46 | DS.PCM_ITS ---
Documented by User: Gilma Tracy NP, MANAGER SUPPLY CHAIN-C 11/15/20 16:00 Providers Date of Admission: 11/14/20 Date of Discharge: 11/15/20 Primary Care Physician: Dr. Satya Tinoco MD Consultations 11/14/20 17:32 Consult: Cardiology Routine Consulting Provider: Kori Moody Reason for Consult: A-fib EMERGENT Consult: No MD Notified: Yes Date Notified: 11/14/20 Time Notified: 12:52 Method of Notification: Verbal Reason For Visit: SEIZURE, A-FIB WITH RVR Diagnosis Discharge Diagnosis (1) Alteration in speech: Status: Acute Code(s): R47.89 - Other speech disturbances Medications at Discharge Home Medications albuterol sulfate 90 mcg/actuation aerosol inhaler 2 puff INHALATION Q4H PRN #18 g 05/15/18 potassium chloride 20 mEq tablet,extended release(part/cryst) 20 meq PO DAILY tab 10/03/20 diltiazem HCl 180 mg PO DAILY 11/14/20 gabapentin 600 mg PO TIDCM 11/14/20 hydrochlorothiazide 12.5 mg PO DAILY 11/14/20 lisinopril 10 mg PO DAILY 11/14/20 levetiracetam 500 mg PO BID #60 tab 11/15/20 metoprolol tartrate 25 mg PO BID #60 tab 11/15/20 Hospital Course Operations None Procedures Electroencephalogram Summary of Care Provided Minutes Spent on Discharge: 35 Hospital Course: Patient is a 55-year-old female admitted 11/14/2020 due to speech changes. 1. Speech changes/Aphasia/abnormal movements-TIA/CVA ruled out. [facility] telestroke consulted from ED, plan for work-up for MS flare, seizures, rule out CVA. MRI of brain with and without contrast unremarkable. EEG completed, report pending. Head and neck CTA without significant stenosis or occlusion. Treatment for possible breakthrough seizure per below due to witnessed event. Patient symp toms have completely resolved. Follow-up with PCP, neurology at discharge. 2. History of seizure with suspected breakthrough seizure-on gabapentin at baseline. IV Keppra during admission with transition to oral Keppra 500 mg twice daily at discharge. EEG completed, report pending however no further evidence of active seizure during admission. EEG result will be followed. Follow-up with neurology at discharge. 3. Paroxysmal atrial fibrillation-on Cardizem at baseline. Not on oral anticoag ulation. Cardiology consulted due to suspected A. fib with RVR however after further evaluation, of telemetry, appears consistent with sinus tachycardia with PACs. Initiated on metoprolol 25 mg twice daily. Follow-up with cardiology in 2 weeks. 4. Prediabetes-hemoglobin A1c 5.8%. Recommend carb controlled diet. 5. Elevated liver enzymes-CT of abdomen and pelvis 11/04/2020 demonstrated fatty l iver with hepatomegaly. Liver profile appears improved from prior. Recommend outpatient follow-up with PCP for further ongoing evaluation. 6. Hypertension-continue lisinopril, HCTZ. 7. MS- not on regimen. Follows with Dr. Leo Mcgrath, Internal medicine/MS specialist. Continue follow-up. 8. Tobacco dependence- encouraged cessation. 9. Asthma/COPD overlap syndrome-as needed albuterol inhaler. Follows with Dr. Mazariegos, pulmonary medicine. 10. Obesity- encouraged diet and lifestyle modifications. 11. Probable YANNICK-recommended sleep study, unclear if patient has yet had this work-up. Recommend follow-up for sleep study. Physical Exam Const alert, oriented x3 and no apparent distress Orientation / Consciousness: awake, oriented to person, oriented to place and oriented to time HEENT normocephalic and moist oral mucous membranes Eyes PERRL, EOMs intact bilaterally and conjunctivae normal Neck no lymphadenopathy Resp normal respiratory effort and clear to auscultation bilaterally Cardio no murmurs Cardio Narrative: Atrial fibrillation with RVR Peripheral Pulses: pulses 2+ throughout GI normal to inspection, nondistended, normoactive bowel sounds, non-tender and non-distended Extremity normal to inspection Skin no rashes or lesions noted Lesions: no lesions Rashes: no rashes Trauma: no lacerations or abrasions Neuro CN's II-XII intact bilaterally, no focal motor deficits, no sensory deficits noted and deep tendon reflexes 2+ bilaterally Speech: speech abnormal Details: Positive for stuttering and other (Slow speech) Psych mental status grossly normal and affect normal Patient seen and examined prior to discharge. Physical assessment as noted above. Patient is stable for discharge with follow up recommendations as noted above. This patient was seen by BISI Gonzales under the supervision of Dr. Garcia. Weight / BMI Weight Weight: 223 lb 1.725 oz Body Mass Index (BMI) 42.1 ABG / Lab / Microbiology Data Result Diagrams: 11/14/20 11:05 11/15/20 06:00 Laboratory: Laboratory Results - last 24 hr 11/14/20 11:05: Magnesium 1.3 L, Total Bilirubin 2.40 H, Direct Bilirubin 1.01 H , AST 184 H, ALT 123 H, Alkaline Phosphatase 223 H, Total Protein 7.3, Albumin 3.4, Globulin 3.9, TSH 4.91 H 11/14/20 11:05: Hemoglobin A1c 5.8 H 11/14/20 17:56: POC Glucose 181 H 11/14/20 20:56: POC Glucose 205 H 11/15/20 06:00: Sodium 134 L, Potassium 3.2 L, Chloride 101, Carbon Dioxide 25.0, Anion Gap 8, BUN 8, Creatinine 0.55, Estim Creat Clear Calc 87.21, Est GFR (MDRD) Af Amer 146, Est GFR (MDRD) Non-Af 121, BUN/Creatinine Ratio 14.4, Glucose 152 H, Calcium 8.4 L 11/15/20 06:29: POC Glucose 175 H 11/15/20 12:19: POC Glucose 194 H Microbiology: Microbiology 11/14/20 11:56 Nasal Secretion SARS-CoV-2 Antigen (Rapid) - Final Radiography Diagnostic Testing: Radiology Impression Brain MRI 11/15/20 09:00 IMPRESSION: No acute intracranial abnormality or masses. Electronically Signed: Mary Ann Rodriguez MD at 10:30 EDT Tel , Service support , D/C Instructions Discharge Diet: Carb Control Diet Call your doctor if you observe: Numbness or Tingling, Shortness of breath, Dizziness and Chest pain Meaningful Use Info Meaningful Use Diagnoses (Choose all that apply): None applicable Discharge Plan Admission Admit Date/Time: 11/14/20 12:59 Primary Reason for Your Visit: Aphasia, seizure Attending Provider: Miguel Garcia Primary Care Provider: Satya Tinoco Consulting Providers: Kori Moody Discharge Orders/Prescriptions Prescriptions: New levetiracetam 500 mg Tablet 500 mg PO BID Qty: 60 RF: 0 metoprolol tartrate 25 mg Tablet 25 mg PO BID Qty: 60 RF: 0 Continued Ventolin HFA 90 mcg/actuation HFA aerosol inhaler 2 puff INHALATION Q4H PRN (Reason: shortness of breath or wheezing) Qty: 18 RF: 2 potassium chloride 20 mEq tablet,ER particles/crystals 20 meq PO DAILY RF: 0 gabapentin 600 MG tablet 600 mg PO TIDCM RF: 0 diltiazem HCl 180 mg capsule,extended release 24hr 180 mg PO DAILY RF: 0 lisinopril 20 MG tablet 10 mg PO DAILY RF: 0 hydrochlorothiazide 25 MG tablet 12.5 mg PO DAILY RF: 0 Referrals / Follow Up: Satya Tinoco MD [Primary Care Provider] - In 1 Week Carter Alvarado MD [STAFF PHYSICIAN] - Within 2 Weeks (May see MANAGER SUPPLY CHAIN/PA) Sidney Orr MD [STAFF PHYSICIAN] - Within 1 Month Disposition Disposition (needs filled in before D/C Order can be placed): Home, Self Care Documented by User: Dr. Miguel Garcia DO 11/15/20 21:25 Providers Date of Admission: 11/14/20 Reason For Visit: SEIZURE, A-FIB WITH RVR Medications at Discharge Home Medications albuterol sulfate 90 mcg/actuation aerosol inhaler 2 puff INHALATION Q4H PRN #18 g 05/15/18 potassium chloride 20 mEq tablet,extended release(part/cryst) 20 meq PO DAILY tab 10/03/20 diltiazem HCl 180 mg PO DAILY 11/14/20 gabapentin 600 mg PO TIDCM 11/14/20 hydrochlorothiazide 12.5 mg PO DAILY 11/14/20 lisinopril 10 mg PO DAILY 11/14/20 levetiracetam 500 mg PO BID #60 tab 11/15/20 metoprolol tartrate 25 mg PO BID #60 tab 11/15/20 ABG / Lab / Microbiology Data Result Diagrams: 11/14/20 11:05 11/15/20 06:00 Discharge Plan Admission Admit Date/Time: 11/14/20 12:59 Primary Reason for Your Visit: Aphasia, seizure Attending Provider: Miguel Garcia Primary Care Provider: Satya Tinoco Consulting Providers: Kori Moody Discharge Orders/Prescriptions Prescriptions: New levetiracetam 500 mg Tablet 500 mg PO BID Qty: 60 RF: 0 metoprolol tartrate 25 mg Tablet 25 mg PO BID Qty: 60 RF: 0 Continued Ventolin HFA 90 mcg/actuation HFA aerosol inhaler 2 puff INHALATION Q4H PRN (Reason: shortness of breath or wheezing) Qty: 18 RF: 2 potassium chloride 20 mEq tablet,ER particles/crystals 20 meq PO DAILY RF: 0 gabapentin 600 MG tablet 600 mg PO TIDCM RF: 0 diltiazem HCl 180 mg capsule,extended release 24hr 180 mg PO DAILY RF: 0 lisinopril 20 MG tablet 10 mg PO DAILY RF: 0 hydrochlorothiazide 25 MG tablet 12.5 mg PO DAILY RF: 0 Referrals / Follow Up: Satya Tinoco MD [Primary Care Provider] - In 1 Week Carter Alvarado MD [STAFF PHYSICIAN] - Within 2 Weeks (May see MANAGER SUPPLY CHAIN/PA) Sidney Orr MD [STAFF PHYSICIAN] - Within 1 Month Disposition Disposition (needs filled in before D/C Order can be placed): Home, Self Care Charges/Coding Addendum Addendum: Patient was seen and examined independently of Gilma Tracy today, her MRI showed no acute intracranial abnormality or masses. Echocardiogram showed a normal ejection fraction, bubble contrast study was negative. On examination she appeared in good health and spirits, she does not appear to be in any distress. Vital signs as documented. Skin warm and dry and without overt rashes. Neck without JVD, thyroid appears normal, trachea is midline, neck is supple. Lungs clear, normal air movement was noted. Heart exam notable for regular rhythm, normal sounds and absence of murmurs, rubs or gallops. Abdomen unremarkable and without evidence of organomegaly, masses, or abdominal aortic enlargement, bowel sounds are present in all 4 quadrants, no abdominal tenderness was noted. Extremities nonedematous, no cyanosis was noted, no clubbing was noted. Neuro: Cranial nerves II through XII are grossly intact, no focal motor deficits were noted, sensation to light touch and pinprick is intact, motor exam 5/5 throughout. Psych: Patient is alert and oriented x3, she does not appear anxious or depressed, she does not appear agitated. Patient appears stable for discharge at this time, she will need to follow-up with a neurologist regarding her seizure disorder, I have reviewed Gilma Tracy's discharge summary including her medical assessment and plan of care and endorse it. Visit Charges Inpatient E&M: 36223 Disch Hosp
[2020-11-15 16:21] LABS: Bedside Glucose 161 mg/dL (70-110)
--- NOTE | 2020-11-16 13:30 | CASEMGMT ---
RN CM Discharge Follow-up Phone Call: TELLO: Sandrine Strata: 3 Call Date: 11/16/20 Discharge Date: 11/15/20 Time of Call: 1330 Duration: 1 min Admitting Diagnosis: seizure, Afib with RVR RN CM attempted to complete follow-up phone call after recent hospitalization. No answer, unable to leave voice message as mailbox is full.
[2020-11-19 12:30] LABS: Bedside Glucose 272 mg/dL (70-110)
== END 2020-11-15 18:11 | disposition home or self-care (01) | DRG 309 ==
LOC: ED 12:07 → PCU 11-15 08:16
PROVIDERS: Nurse Practitioner Family; Admitting Provider Internal Medicine; Emergency Provider Emergency Medicine; PCP Family Medicine; Visit Provider Internal Medicine
DX: I48.0 Paroxysmal atrial fibrillation (principal); Z68.41 Body mass index [BMI] 40.0-44.9, adult; R47.01 Aphasia; K76.0 Fatty (change of) liver, not elsewhere classified; G35 Multiple sclerosis; J44.9 Chronic obstructive pulmonary disease, unspecified; G40.909 Epilepsy, unspecified, not intractable, without status epilepticus; E87.6 Hypokalemia; I10 Essential (primary) hypertension; I35.0 Nonrheumatic aortic (valve) stenosis; R00.2 Palpitations; I49.1 Atrial premature depolarization; E66.9 Obesity, unspecified; Z82.3 Family history of stroke; Z87.891 Personal history of nicotine dependence; Z79.899 Other long term (current) drug therapy; R73.03 Prediabetes; R47.89 Other speech disturbances; R29.711 NIHSS score 11
CPT/HCPCS: 36415; 70450; 70496; 70498; 70553; 71045; 80048; 80076; 82962; 83036; 83735; 84443; 84484; 85025; 85610; 85730; 87426; 92523; 93005; 93306; 95819; 96365; 96366; 96367; 96372; 96375; 97162; 97166; 99218; 99285; 99406; A9575; J7050; Q9957; Q9967; A4216; C8929; G0378; J3490

== ENCOUNTER 2021-03-15 13:03 | Outpatient (CLI) | payer OTHER, SELFPAY | END 2021-03-15 23:59 | disposition short-term general hospital (02) | LOC: LABSPEC 13:04 | PROVIDERS: Visit Provider Physician Assistant Surgical | DX: Z11.52 Encounter for screening for COVID-19 (principal) | CPT/HCPCS: 87635; U0003; U0005 ==

== ENCOUNTER 2021-05-26 15:26 | Emergency (ER) | payer SELFPAY ==
[2021-05-26 15:26] VITALS: BP 158/98; PULSE 101; RESP 16; TEMP 36.6; O2SAT 96; BMI 41.1
[2021-05-26 15:29] VITALS: BP 158/98; PULSE 101; RESP 16; TEMP 36.6; O2SAT 96
[2021-05-26 16:25] LABS: Absolute Lymphocyte Count 2.72 X10^3/uL (0.83-4.51); Absolute Neutrophil Count 13.9 X10^3/uL (2.0-7.7); Basophil# 0.03 X10^3/uL; Basophil% 0.2 % (0-1); Hematocrit 45.8 % (37-47); Hemoglobin 16.1 g/dL (12.0-15.0); Lymphocyte # 2.72 X10^3/ul (0.83-4.51); Lymphocyte % 15.3 % (19-41); Mean Corp Hgb Conc 35.2 g/dL (32-36); Mean Corpuscular Volume 96.8 fL (81-99); Mean Platelet Vol. 11.3 fl (6.2-12.0); Monocyte# 1.01 X10^3/uL; Monocyte% 5.7 % (0-10); NRBC Flagged by Analyzer 0.1 % (0-5); Neutrophil # 13.87 X10^3/uL (2.7-7.7); Neutrophil % 78.2 % (47-70); Platelet Count 182 K/mm3 (150-450); RBC Distribution Width SD 42.8 fl (35.1-43.9); Red Blood Count 4.73 M/mm3 (4.2-5.4); White Blood Count 17.7 K/mm3 (4.4-11.0)
[2021-05-26 16:31] LABS: Anion Gap 8 (5-15); BUN 22 mg/dL (7-18); BUN/Creat Ratio 26.3 RATIO (10-20); Calcium,Total 9.3 mg/dL (8.5-10.1); Chloride 100 mmol/L (98-107); Creatinine, Serum 0.84 mg/dL (0.55-1.02); EST Glomerular Filtration Rate 75 mL/min (>60); Est Glom Filt Rate - Afr Amer 91 mL/min (>60); Glucose 190 mg/dL (74-106); Potassium 3.6 mmol/L (3.5-5.1); Sodium Level 134 mmol/L (136-145)
--- NOTE | 2021-05-26 17:25 | CT_ITS ---
INDICATION: submandibular swelling EXAMINATION: CT Soft Tissue Neck W/ Contrast Injection TECHNIQUE: Helically acquired images were obtained of the neck following IV contrast. A radiation dose optimization technique was used for this scan. IV Contrast dosage and agent: 100 cc [id number] COMPARISON: None. FINDINGS: NASOPHARYNX: Unremarkable. SUPRAHYOID NECK: Unremarkable oropharynx, oral cavity, parapharyngeal space, and retropharyngeal space. INFRAHYOID NECK: Unremarkable larynx, hypopharynx, and supraglottis. THYROID: No focal lesions. SALIVARY GLANDS: Unremarkable. LYMPH NODES: No cervical or supraclavicular lymphadenopathy. VASCULAR STRUCTURES: Unremarkable. VISUALIZED PORTIONS OF THE ORBITS, PARANASAL SINUSES, MASTOID AIR CELLS AND SKULL BASE: Unremarkable. BONES/SOFT TISSUES: Mild subcutaneous fat stranding in the left jaw. Mild degenerative disc disease and spondylosis of the cervical spine. THORACIC INLET: Clear lung apices. CT/Soft Tissue Neck WITH Contrast IMPRESSION: Mild inflammatory changes in the left jaw without evidence of focal fluid collection or submandibular gland enlargement. Electronically Signed: Jordan Dubon MD at 18:52 EDT ,
--- NOTE | 2021-05-26 17:26 | EX.ED.DYSGE1 ---
HPI History of Present Illness Chief Complaint: Allergic Reaction Narrative Narrative: Patient with past medical history of multiple sclerosi, asthma, hypertension presents with what she thinks is an allergic reaction. She started methylprednisolone 4 days ago, but has not needed it in over 20 years for her MS. She noticed swelling of her face last evening but it has progressively gotten worse throughout the day. She thought that she was having henderson face but noticed that it is more concentrated in her left lower jaw. She denies any fevers or chills. No redness to the area. She does not have dental problems as she states that she does not have that many teeth in her left lower jaw. She denies any difficulty swallowing or throat pain. No increased shortness of breath from her baseline. She also complains of a dry mouth. She presents for evaluation of a suspected allergic reaction to methylprednisolone. [facility] Medical History Aortic stenosis Asthma-COPD overlap syndrome Atrial fibrillation COPD (chronic obstructive pulmonary disease) Family history of CVA Hypertension Multiple sclerosis Palpitations Paroxysmal atrial fibrillation Premature atrial contractions Premature ventricular contraction Seizures Tobacco abuse Home Medications albuterol sulfate 90 mcg/actuation aerosol inhaler 2 puff INHALATION Q4H PRN #18 g 05/15/18 [Rx Last Taken Unknown] potassium chloride 20 mEq tablet,extended release(part/cryst) 20 meq PO DAILY tab 10/03/20 [History Last Taken Unknown] diltiazem HCl 180 mg PO DAILY 11/14/20 [History Last Taken 11/14/20] gabapentin 600 mg PO TIDCM 11/14/20 [History Last Taken 11/13/20] hydrochlorothiazide 12.5 mg PO DAILY 11/14/20 [History Last Taken 11/14/20] lisinopril 10 mg PO DAILY 11/14/20 [History Last Taken 11/14/20] levetiracetam 500 mg PO BID #60 tab 11/15/20 [Rx Last Taken Unknown] metoprolol tartrate 25 mg PO BID #60 tab 11/15/20 [Rx Last Taken Unknown] amoxicillin-pot clavulanate 1 tab PO BID #20 tab 05/26/21 [Rx Last Taken Unknown] Allergy/AdvReac Type Severity Reaction Status Date / Time lorazepam [From Ativan] AdvReac Severe Other Verified 11/14/20 11:24 Family History Mother Myocardial infarction Hypertension Breast cancer Father CVA (cerebral vascular accident) Myocardial infarction Diabetes CAD (coronary artery disease) Brother CVA (cerebral vascular accident) CAD (coronary artery disease) Sister Afib Surgical History History of total hysterectomy Social History Smoking Status: Current every day smoker tobacco type: cigarettes how long ago did patient quit smokin, 0.5ppd second hand exposure: Yes alcohol intake: never substance use type: does not use caffeine: Yes Type: coffee what type of physical activity do you participate in: none seatbelt use: always do you feel safe at home: Yes ROS ROS ED ROS Narrative Constitutional: No fever, no chills. HEENT: No sore throat. No neck pain. No loss of vision. No rhinorrhea. Positive dry mouth. Swelling of left lower jaw. No tongue swelling. No throat closing or itchiness. Cardiovascular: No chest pain. No palpitations. No pedal edema. Respiratory: No cough, no shortness of breath. Abdominal: No abdominal pain. No nausea. No vomiting. Genitourinary: No dysuria. No hematuria. Musculoskeletal: No myalgias. No arthralgias. Neurologic: No headaches. No dizziness. No lightheadedness. Skin: No rash. No change in color. Psychiatric: No depression. No anxiety. EXAM Physical Exam Narrative Exam Narrative: Afebrile. Vital signs noted. HEENT: Normocephalic. Atraumatic. PERRL, EOMI. Neck soft and supple. No point tenderness or step off. A dentulous left lower jaw except for a few front teeth in the lower jaw. No drooling or trismus. Airway patent. Positive swelling of the mouth submandibular gland area left lower jaw. Cardiovascular: Regular rate and rhythm. No murmurs, rubs, or gallops appreciated. Respiratory: No tachypnea. Lungs clear to auscultation bilaterally. Gastrointestinal: Abdomen soft, nontender, with normoactive bowel sounds. No rebound or guarding. Neurological: Awake. Alert. Nonfocal, nonlateralizing. Skin: No rash. Normal color. No pallor. Musculoskeletal: No pedal edema. Full range of motion extremities. Const Vital Signs: 05/26/21 15:26 05/26/21 15:29 Temperature 97.8 F 97.8 F Temperature Source Temporal Temporal Pulse Rate 101 H 101 H Respiratory Rate 16 16 Blood Pressure 158/98 H 158/98 H Blood Pressure Mean 118 118 Pulse Ox 96 96 Oxygen Delivery Method Room Air Room Air MDM MDM MDM Narrative Medical decision making narrative: Nursing protocol had been started. Basic laboratories were drawn and have resulted. CBC shows elevated white count of 17.7, but she is on her fourth day/fifth day of a Medrol Dosepak. Hemoglobin stable at 16.1. Platelet count 182. She has a sodium of 134 with a normal creatinine of 0.84 and a BUN of 22. I do feel that she may have more of a submandibular gland abscess versus stone. CT imaging with IV contrast will be obtained. CT shows mild inflammatory changes of the left jaw without evidence of focal fluid collection or submandibular gland enlargement. Given her swelling, she will be treated as a cellulitis. I do think that some of her elevated white count may be secondary to her current steroid use. She is given a prescription for antibiotics here in the emergency department with her first dose of Augmentin here. I feel she be discharged safely home with follow-up. Return instructions to the emergency department were reviewed. Disposition is discharged home in stable condition. Lab Data Attestation: I reviewed the patient's lab results. Labs: Laboratory Results - last 24 hr 05/26/21 05/26/21 16:05 16:05 WBC 17.7 H RBC 4.73 Hgb 16.1 H Hct 45.8 MCV 96.8 MCH 34.0 H MCHC 35.2 RDW Std Deviation 42.8 RDW Coeff of Ayaka 12.0 Plt Count 182 MPV 11.3 Immature Gran % (Auto) 0.600 Neut % (Auto) 78.2 H Lymph % (Auto) 15.3 L Gem % (Auto) 5.7 Eos % (Auto) 0.0 Baso % (Auto) 0.2 Absolute Neuts (auto) 13.9 H Absolute Lymphs (auto) 2.72 Nucleated RBC % 0.1 Sodium 134 L Potassium 3.6 Chloride 100 Carbon Dioxide 26.0 Anion Gap 8 BUN 22 H Creatinine 0.84 Estim Creat Clear Calc 57.10 Est GFR (MDRD) Af Amer 91 Est GFR (MDRD) Non-Af 75 BUN/Creatinine Ratio 26.3 H Glucose 190 H Calcium 9.3 Radiography Diagnostic Testing: Clinical Impression(s) from Imaging Studies Soft Tissue Neck CT 05/26/21 17:25 IMPRESSION: Mild inflammatory changes in the left jaw without evidence of focal fluid collection or submandibular gland enlargement. Electronically Signed: Jordan Dubon MD at 18:52 EDT , Discharge Plan Triage Chief Complaint: Allergic Reaction ED Provider: Bryan Tam Dx/Rx/DC Orders Clinical Impression: Cellulitis of jaw, left Instructions: ED Cellulitis, Facial Prescriptions: New amoxicillin-pot clavulanate 875-125 mg tablet 1 tab PO BID Qty: 20 RF: 0 No Action Ventolin HFA 90 mcg/actuation HFA aerosol inhaler 2 puff INHALATION Q4H PRN (Reason: shortness of breath or wheezing) Qty: 18 RF: 2 potassium chloride 20 mEq tablet,ER particles/crystals 20 meq PO DAILY RF: 0 gabapentin 600 MG tablet 600 mg PO TIDCM RF: 0 diltiazem HCl 180 mg capsule,extended release 24hr 180 mg PO DAILY RF: 0 lisinopril 20 MG tablet 10 mg PO DAILY RF: 0 hydrochlorothiazide 25 MG tablet 12.5 mg PO DAILY RF: 0 levetiracetam 500 mg Tablet 500 mg PO BID Qty: 60 RF: 0 metoprolol tartrate 25 mg Tablet 25 mg PO BID Qty: 60 RF: 0 Primary Care Provider: Satya Tinoco Referrals: Satya Tinoco MD [Primary Care Provider] - 3-5 Days Disposition Disposition: Home, Self Care Discharge Date/Time: 05/26/21 19:21
[2021-05-26] MEDS: Amox/Clavulanate 875 MG Tablet PO (19:19)
== END 2021-05-26 19:21 | disposition home or self-care (01) ==
PROVIDERS: Emergency Provider Emergency Medicine; PCP Family Medicine; Visit Provider Emergency Medicine
DX: L03.211 Cellulitis of face (principal); G35 Multiple sclerosis; J44.9 Chronic obstructive pulmonary disease, unspecified; I48.0 Paroxysmal atrial fibrillation; I10 Essential (primary) hypertension; Z87.891 Personal history of nicotine dependence
CPT/HCPCS: 70491; 80048; 85025; 99285; Q9967; A4216

== ENCOUNTER 2021-07-02 15:17 | Emergency (ER) | payer SELFPAY ==
[2021-07-02] VITALS (7 sets, daily range): BP systolic 125–162; BP diastolic 85–109; PULSE 96–115; RESP 16–20; TEMP 36.2–36.7; O2SAT 94–98; BMI 40.1
--- NOTE | 2021-07-02 15:37 | EKG12_ITS ---
Test Reason : Blood Pressure : / mmHG Vent. Rate : 101 BPM Atrial Rate : 101 BPM P-R Int : 160 ms QRS Dur : 072 ms QT Int : 350 ms P-R-T Axes : 069 -50 -12 degrees QTc Int : 453 ms Sinus tachycardia Left anterior fascicular block Poor R wave progression Abnormal ECG Confirmed by PARVEEN FARRELL, MANJULA ([id number]), videotape editor ADI PIERRE ([id number]) on 07/04/2021 11:20:18 AM Referred By: PL Confirmed By:MANJULA SAINI MD
--- NOTE | 2021-07-02 15:39 | EDS_ITS ---
HPI History of Present Illness Chief Complaint: Nausea/Vomiting Informant: patient Narrative Narrative: Patient presents with the feeling that she is sick. She states it started about 4 or so days ago. She started with GI upset diarrhea nausea and vomiting. No blood has been seen. She is not really having abdominal pain with this though. She then developed an occasional cough but no productivity. She has mild dyspnea. She has myalgias. She has had some chest soreness but states it feels more like just indigestion to her. No coughing of blood or sputum. No known fevers. She states many people at work have had influenza A. She did have a flu vaccine but it was back in November. She has had 2 COVID vaccines. She has not had any recent travel surgery immobilization or personal family history of DVT or PE. She has had history in the past of atrial fibrillation. She is not on any anticoagulation now. [facility] Medical History Aortic stenosis Asthma-COPD overlap syndrome Atrial fibrillation COPD (chronic obstructive pulmonary disease) Family history of CVA Hypertension Multiple sclerosis Palpitations Paroxysmal atrial fibrillation Premature atrial contractions Premature ventricular contraction Seizures Tobacco abuse Home Medications albuterol sulfate 90 mcg/actuation aerosol inhaler 2 puff INHALATION Q4H PRN #18 g 05/15/18 [Rx Last Taken Unknown] potassium chloride 20 mEq tablet,extended release(part/cryst) 20 meq PO DAILY tab 10/03/20 [History Last Taken Unknown] diltiazem HCl 180 mg PO DAILY 11/14/20 [History Last Taken 11/14/20] gabapentin 600 mg PO TIDCM 11/14/20 [History Last Taken 11/13/20] hydrochlorothiazide 12.5 mg PO DAILY 11/14/20 [History Last Taken 11/14/20] lisinopril 10 mg PO DAILY 11/14/20 [History Last Taken 11/14/20] cephalexin 500 mg PO Q6 #28 cap 07/02/21 [Rx Last Taken Unknown] ondansetron 4 mg PO Q8H PRN #10 tab 07/02/21 [Rx Last Taken Unknown] Allergy/AdvReac Type Severity Reaction Status Date / Time lorazepam [From Ativan] AdvReac Severe Other Verified 07/02/21 15:31 Family History Mother Myocardial infarction Hypertension Breast cancer Father CVA (cerebral vascular accident) Myocardial infarction Diabetes CAD (coronary artery disease) Brother CVA (cerebral vascular accident) CAD (coronary artery disease) Sister Afib Surgical History History of total hysterectomy Social History Smoking Status: Current every day smoker tobacco type: cigarettes how long ago did patient quit smokin, 0.5ppd second hand exposure: Yes alcohol intake: never substance use type: does not use caffeine: Yes Type: coffee what type of physical activity do you participate in: none seatbelt use: always do you feel safe at home: Yes ROS ROS ED Constitutional Constitutional ED: Denies chills or fever(s) Eyes Eyes: Denies blurry vision ENT ENT ED: Reports rhinorrhea; Denies sore throat Cardiovascular Cardiovascular: Reports chest pain; Denies palpitations or racing heartbeat Respiratory/Chest Respiratory/Chest: Reports cough and dyspnea; Denies sputum Gastrointestinal Gastrointestinal: Reports diarrhea, nausea and vomiting; Denies abdominal pain Genitourinary Genitourinary ED: Denies dysuria Musculoskeletal Musculoskeletal: Reports myalgias Integumentary Denies rash Neurologic Neurologic: Denies headache(s) or weakness Endocrine Endocrinology: Denies polyuria Allergic/Immunologic Allergic/Immunologic ED: Denies mouth swelling or urticaria EXAM Physical Exam Const Vital Signs: 07/02/21 15:19 07/02/21 15:32 07/02/21 16:00 Temperature 98.1 F 98.1 F Temperature Source Oral Oral Pulse Rate 108 H 109 H 104 H Respiratory Rate 20 H 19 H 17 Blood Pressure 162/109 H 133/90 H 125/94 H Blood Pressure Mean 126 104 104 Pulse Ox 96 97 96 Oxygen Delivery Method Room Air Room Air Room Air 07/02/21 17:00 07/02/21 18:27 07/02/21 18:30 Temperature 97.2 F L Temperature Source Oral Pulse Rate 96 106 H 106 H Respiratory Rate 17 17 17 Blood Pressure 149/94 H 147/97 H 147/97 H Blood Pressure Mean 112 113 113 Pulse Ox 94 95 95 Oxygen Delivery Method Room Air Room Air Room Air Positive well nourished and well developed General Appearance ED: well developed and NAD; Negative for cyanotic or pallor HEENT Reports dry mucous membranes Mouth ED: Yes dry mucous membranes Mouth: dry mucous membranes Eyes General Eye ED: Negative for pale conjunctiva or scleral icterus Neck no JVD Chest Wall inspection of chest normal Resp normal respiratory effort and clear to auscultation bilaterally Effort and Inspection: Negative for pain with movement Auscultation: Negative for rales, rhonchi or wheezes Cardio regular rhythm and no murmurs Rate: tachycardic GI normal to inspection, nondistended, normoactive bowel sounds Back/Spine no CVA tenderness Extremity normal to inspection General Extremety ED: Negative for edema or tenderness General Extremity: Negative for edema Neuro oriented x3 Sensorium / Orientation: alert Psych mental status grossly normal Skin no rashes or lesions noted and no wounds General Skin Exam: Negative for jaundice or pallor MDM MDM MDM Narrative Medical decision making narrative: Patient has been checked multiple times. Nausea is much better. She is now stating that she thinks she might have a UTI. When we get the urine she does not have white cells but she has 4+ bacteria cloudy urine and leukocyte Estrace. She is now saying she has had symptoms like this with the UTI. Its a little different than the history I got initially. She still wants to go home. I will give her Rocephin here. We will get antibiotics to go. We discussed reasons to return. I will also get her meds for nausea. I discussed her persistent elevation of LFTs. She states she has always had this and does not know why. She states she does not drink much. She does not take Tylenol. Her levels are currently at or below her normal baseline. Lab Data Attestation: I reviewed the patient's lab results. Labs: Laboratory Results - last 24 hr 07/02/21 07/02/21 07/02/21 16:00 16:00 17:53 WBC 9.7 RBC 5.11 Hgb 16.9 H Hct 47.6 H MCV 93.2 MCH 33.1 H MCHC 35.5 RDW Std Deviation 43.0 RDW Coeff of Ayaka 12.5 Plt Count 125 L MPV 11.4 Immature Gran % (Auto) 0.400 Neut % (Auto) 69.4 Lymph % (Auto) 22.0 Grainger % (Auto) 7.4 Eos % (Auto) 0.3 Baso % (Auto) 0.5 Absolute Neuts (auto) 6.8 Absolute Lymphs (auto) 2.14 Nucleated RBC % 0 Sodium 134 L Potassium 3.3 L Chloride 101 Carbon Dioxide 22.0 Anion Gap 11 BUN 10 Creatinine 0.83 Estim Creat Clear Calc 57.79 Est GFR (MDRD) Af Amer 92 Est GFR (MDRD) Non-Af 76 BUN/Creatinine Ratio 12.1 Glucose 181 H Calcium 9.6 Total Bilirubin 1.70 H AST 103 H ALT 85 H Alkaline Phosphatase 117 Troponin I High Sens 9 Total Protein 7.7 Albumin 4.1 Globulin 3.6 Albumin/Globulin Ratio 1.1 Urine Color Yellow Urine Clarity Cloudy Urine pH 6.0 Ur Specific [place] 1.015 Urine Protein 15 H Urine Glucose (UA) Normal Urine Ketones Negative Urine Occult Blood 25 H Urine Nitrite Negative Urine Bilirubin Negative Urine Urobilinogen 1 H Ur Leukocyte Esterase 100 H Urine RBC 0 SEEN Urine WBC 0-5 SEEN Ur Squamous Epith Cells 0-5 SEEN Urine Bacteria 4+ Urine Mucus 0 SEEN Radiography Diagnostic Testing: Clinical Impression(s) from Imaging Studies Chest X-Ray 07/02/21 16:10 IMPRESSION: Normal x-ray examination of the chest. Electronically Signed: Junior Andrews MD at 16:20 EDT , Discharge Plan Triage Chief Complaint: Nausea/Vomiting ED Provider: Alcon Quintana Dx/Rx/DC Orders Clinical Impression: Nausea & vomiting, Urinary tract infection Instructions: ED CYSTITIS Female Adult, ED Vomiting and Diarrhea ... Prescriptions: New cephalexin [cephalexin] 500 MG capsule 500 mg PO Q6 Qty: 28 RF: 0 ondansetron 4 mg tablet,disintegrating 4 mg PO Q8H PRN (Reason: nausea and vomiting) Qty: 10 RF: 0 No Action Ventolin HFA 90 mcg/actuation HFA aerosol inhaler 2 puff INHALATION Q4H PRN (Reason: shortness of breath or wheezing) Qty: 18 RF: 2 potassium chloride 20 mEq tablet,ER particles/crystals 20 meq PO DAILY RF: 0 gabapentin 600 MG tablet 600 mg PO TIDCM RF: 0 diltiazem HCl 180 mg capsule,extended release 24hr 180 mg PO DAILY RF: 0 lisinopril 20 MG tablet 10 mg PO DAILY RF: 0 hydrochlorothiazide 25 MG tablet 12.5 mg PO DAILY RF: 0 Primary Care Provider: Care Physician,No Primary Referrals: Mitra Resendiz MD [STAFF PHYSICIAN] - 3-5 Days Care Physician,No Primary [Primary Care Provider] - Disposition Disposition: Home, Self Care
[2021-07-02] MEDS: Ondansetron 4 MG/2 ML Vial IV (16:01)
[2021-07-02] MEDS: 0.9% Normal Saline 1,000 ML 1000 ML IV (16:02)
--- NOTE | 2021-07-02 16:10 | RAD_ITS ---
STUDY: X-RAY CHEST REASON FOR EXAM: Female, 55 years old. SOB TECHNIQUE: Single AP portable view of the chest. COMPARISON: 11/14/2020 FINDINGS: The lungs are clear and expanded. Elevated right hemidiaphragm which is unchanged. Normal size heart. Normal mediastinum and laura. Normal visualized pulmonary arteries. Normal visualized aortic arch and descending thoracic aorta. Normal visualized thoracic spine. Normal visualized ribs, clavicles, and shoulders. There is no demonstrated abnormality of the visualized soft tissue structures of the upper abdomen. RAD/Chest 1 View (Portable) IMPRESSION: Normal x-ray examination of the chest. Electronically Signed: Junior Andrews MD at 16:20 EDT ,
[2021-07-02 16:26] LABS: Absolute Lymphocyte Count 2.14 X10^3/uL (0.83-4.51); Absolute Neutrophil Count 6.8 X10^3/uL (2.0-7.7); Basophil# 0.05 X10^3/uL; Basophil% 0.5 % (0-1); Eosinophil# 0.03 X10^3/uL; Eosinophils% 0.3 % (0-5); Hematocrit 47.6 % (37-47); Hemoglobin 16.9 g/dL (12.0-15.0); Lymphocyte # 2.14 X10^3/ul (0.83-4.51); Mean Corp Hgb Conc 35.5 g/dL (32-36); Mean Corpuscular Hgb 33.1 pg (27.0-32.0); Mean Corpuscular Volume 93.2 fL (81-99); Mean Platelet Vol. 11.4 fl (6.2-12.0); Monocyte# 0.72 X10^3/uL; Monocyte% 7.4 % (0-10); NRBC Flagged by Analyzer 0 % (0-5); Neutrophil # 6.76 X10^3/uL (2.7-7.7); Neutrophil % 69.4 % (47-70); Platelet Count 125 K/mm3 (150-450); RBC Distribution Width CV 12.5 % (11.6-14.6); Red Blood Count 5.11 M/mm3 (4.2-5.4); White Blood Count 9.7 K/mm3 (4.4-11.0)
[2021-07-02 16:57] LABS: ALB/GLOB Ratio 1.1 RATIO (0.9-2.4); AST(SGOT) 103 U/L (15-37); Alanine Aminotransfer ALT/SGPT 85 U/L (13-56); Albumin, Serum 4.1 g/dL (3.2-5.0); Alkaline Phosphatase 117 U/L (45-117); Anion Gap 11 (5-15); BUN 10 mg/dL (7-18); BUN/Creat Ratio 12.1 RATIO (10-20); Calcium,Total 9.6 mg/dL (8.5-10.1); Chloride 101 mmol/L (98-107); Creatinine, Serum 0.83 mg/dL (0.55-1.02); EST Glomerular Filtration Rate 76 mL/min (>60); Est Glom Filt Rate - Afr Amer 92 mL/min (>60); Estimated Creatinine Clearance 57.79 ml/min; Globulin 3.6 g/dL (2.2-4.2); Glucose 181 mg/dL (74-106); Potassium 3.3 mmol/L (3.5-5.1); Protein, Total 7.7 g/dL (6.4-8.2); Sodium Level 134 mmol/L (136-145); Troponin-I HS 9 pg/mL (3.0-54.0)
[2021-07-02 17:59] LABS: Mucous, Urine 0 SEEN /hpf (<or=2+); Red Blood Cells-Urine 0 SEEN /hpf (0-5)
[2021-07-02 18:06] LABS: Color, Urine Yellow (Yellow); Glucose, Dipstick Normal (Normal); Ketone-Dipstick Negative (Negative); Leukocyte Esterase-Dipstick 100 /ul (Negative); Nitrite-Dipstick Negative (Negative); Occult Blood-Urine 25 /ul (Negative); Protein-Dipstick 15 mg/dl (Negative); Specific Gravity, Urine 1.015 (1.002-1.030); Urine Bilirubin Dipstick Negative (Negative); Urine Clarity Cloudy (Clear); Urine Urobilinogen 1 mg/dl (Normal)
[2021-07-02 18:12] LABS: White Blood Cells 0-5 SEEN /hpf (0-5)
[2021-07-02 18:13] LABS: Bacteria 4+ /hpf (None Seen); Squamous Epithelial Cells - UA 0-5 SEEN /hpf (5-10)
[2021-07-02] MEDS: 0.9% Normal Saline 1,000 ML 999 ML IV (18:24)
[2021-07-02] MEDS: Ceftriaxone 1 GM/50 ML BAG IV (20:04)
== END 2021-07-02 21:13 | disposition home or self-care (01) ==
PROVIDERS: Emergency Provider Emergency Medicine; Visit Provider Emergency Medicine
DX: N39.0 Urinary tract infection, site not specified (principal); J44.9 Chronic obstructive pulmonary disease, unspecified; I48.91 Unspecified atrial fibrillation; I48.0 Paroxysmal atrial fibrillation; F17.210 Nicotine dependence, cigarettes, uncomplicated; M79.10 Myalgia, unspecified site
CPT/HCPCS: 71045; 80053; 81001; 84484; 85025; 87086; 87088; 87186; 87428; 93005; 96361; 96365; 96375; 99285; J7030; J7050; A4216; J2405

== ENCOUNTER 2022-02-07 08:06 | Emergency (ER) | payer BC, SELFPAY ==
[2022-02-07 08:08] VITALS: BP 181/123; PULSE 90; RESP 16; TEMP 36.3; O2SAT 97; BMI 41.5
--- NOTE | 2022-02-07 08:49 | CT_ITS ---
STUDY: CT BRAIN WITHOUT CONTRAST REASON FOR EXAM: Female, 56 years old. Injury/ [employer]NCOPE RADIATION DOSAGE (If Supplied By Facility): CTDIvol = ( 44.99 ) mGy, DLP = ( 796.11 ) mGycm TECHNIQUE: Transaxial CT imaging of the brain was performed without administration of intravenous contrast material. Individualized dose optimization techniques were used for this CT. COMPARISON: Comparison is made with prior study 11/14/2020. FINDINGS: Normal soft tissue structures. Normal calvarium. There is mild cerebral atrophy with widening of the extra-axial spaces and ventricular dilatation. There are areas of decreased attenuation within the white matter tracts of the supratentorial brain, consistent with microvascular disease changes. Normal basal ganglia and thalami. Normal brainstem. Normal cerebellum. There is no intracranial hemorrhage. There are no findings of an acute ischemic infarction. As described calcification of the cavernous portions of the internal carotid arteries bilaterally. Normal visualized paranasal sinuses. CT/Brain/Head without Contrast IMPRESSION: Chronic involutional changes of the brain. Electronically Signed: Christian Gill MD at 12:08 EST ,
--- NOTE | 2022-02-07 08:50 | EX.ED.DYSGE1 ---
HPI History of Present Illness Chief Complaint: General Illness Narrative Narrative: 56-year-old female presents with multiple somatic complaints, concerned that she has COVID-19 again. 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 Over the last 2 days she states she is had nausea, vomiting, and diarrhea. She is had 4-5 episodes of nonbloody emesis in the last 24 hours and perhaps the same amount of loose, watery stool without blood. She was concerned because after she went to the bathroom today, when she was trying to get up from the commode, she had a syncopal episode briefly. Her glasses hit her left eye. She sustained bruising around her left eye. She does not take blood thinners. She feels weak and dehydrated. Additionally, she is concerned that she has COVID. She states that she could have gotten a test at her workplace, but then states she was told to just go to the hospital. [facility] Medical History Aortic stenosis Asthma-COPD overlap syndrome Atrial fibrillation COPD (chronic obstructive pulmonary disease) Family history of CVA Hypertension Multiple sclerosis Palpitations Paroxysmal atrial fibrillation Premature atrial contractions Premature ventricular contraction Seizures Tobacco abuse Home Medications albuterol sulfate 90 mcg/actuation aerosol inhaler (Ventolin HFA) 2 puff inhalation Q4H PRN shortness of breath or wheezing #18 grams 05/15/18 [Rx Last Taken Unknown] potassium chloride 20 mEq tablet,extended release(part/cryst) 20 meq PO DAILY supplement 10/03/20 [History Last Taken Unknown] diltiazem HCl 180 mg capsule,extended release 24 hr 180 mg PO DAILY heart 11/14/20 [History Last Taken 11/14/20] gabapentin 600 mg tablet 600 mg PO TIDCM nerve pain 11/14/20 [History Last Taken 11/13/20] hydrochlorothiazide 25 mg tablet 12.5 mg PO DAILY blood pressure 11/14/20 [History Last Taken 11/14/20] lisinopril 20 mg tablet 10 mg PO DAILY bp 11/14/20 [History Last Taken 11/14/20] cephalexin 500 mg capsule 500 mg PO Q6 #28 caps 07/02/21 [Rx Last Taken Unknown] ondansetron 4 mg disintegrating tablet 4 mg PO Q8H PRN nausea and vomiting #10 tabs 07/02/21 [Rx Last Taken Unknown] Allergy/AdvReac Type Severity Reaction Status Date / Time lorazepam [From Ativan] AdvReac Severe Other Verified 02/07/22 08:07 Family History Mother Myocardial infarction Hypertension Breast cancer Father CVA (cerebral vascular accident) Myocardial infarction Diabetes CAD (coronary artery disease) Brother CVA (cerebral vascular accident) CAD (coronary artery disease) Sister Afib Surgical History History of total hysterectomy Social History Smoking Status: Current every day smoker tobacco type: cigarettes how long ago did patient quit smokin, 0.5ppd second hand exposure: Yes alcohol intake: never substance use type: does not use caffeine: Yes Type: coffee what type of physical activity do you participate in: none seatbelt use: always do you feel safe at home: Yes ROS ROS ED ROS Narrative Constitutional: No fever, no chills. HEENT: No sore throat. No neck pain. No loss of vision. No rhinorrhea. Generalized weakness. Bruising around left eye. Cardiovascular: No chest pain. No palpitations. No pedal edema. Respiratory: Positive cough, no shortness of breath. Abdominal: No abdominal pain. Positive nausea. 4-5 episodes of nonbloody vomiting. Positive diarrhea, nonbloody Genitourinary: No dysuria. No hematuria. Musculoskeletal: No myalgias. No arthralgias. Neurologic: No headaches. No dizziness. No lightheadedness. Reported syncopal episode briefly this morning. Skin: No rash. No change in color. Psychiatric: No depression. No anxiety. EXAM Physical Exam Narrative Exam Narrative: Afebrile. Vital signs noted. HEENT: Normocephalic. Positive left periorbital ecchymosis and swelling PERRL, EOMI no entrapment. Neck soft and supple. No point tenderness or step off. Cardiovascular: Regular rate and rhythm. No murmurs, rubs, or gallops appreciated. Respiratory: No tachypnea. Lungs clear to auscultation bilaterally. Gastrointestinal: Abdomen soft, nontender, with normoactive bowel sounds. No rebound or guarding. Neurological: Awake. Alert. Oriented. Nonfocal, nonlateralizing. Skin: No rash. Normal color. No pallor. Musculoskeletal: No pedal edema. Full range of motion extremities. Const Vital Signs: 02/07/22 08:08 02/07/22 09:09 02/07/22 09:10 Temperature 97.4 F L 97.4 F L Temperature Source Temporal Temporal Pulse Rate 90 90 Respiratory Rate 16 16 Respiratory Pattern Normal Blood Pressure 181/123 H 181/123 H Blood Pressure Mean 142 142 Pulse Ox 97 97 Oxygen Delivery Method Room Air Room Air 02/07/22 11:06 Temperature Temperature Source Pulse Rate 87 Respiratory Rate 16 Respiratory Pattern Blood Pressure 134/87 H Blood Pressure Mean 102 Pulse Ox 97 Oxygen Delivery Method Room Air MDM MDM MDM Narrative Medical decision making narrative: Comprehensive work-up was pursued. She was bolused IV fluids. I will check a CBC and CMP along with urinalysis. We will also check CT of the brain. Her swabs for COVID and influenza are negative. EKG interpreted by myself demonstrates normal sinus rhythm at 74 bpm without ectopy or acute ST changes. No STEMI. Normal QTC of 415. CBC is grossly normal with a normal white count of 6.6, hemoglobin normal at 15.0 with platelet count normal at 153. CMP shows chloride slightly elevated at 108 which I think is nonspecific, BUN of 15 with a creatinine of 0.62. Glucose appropriately elevated at 146 with a normal anion gap/low at 3. Urinalysis shows small amount of ketones but no evidence of infection. CT of the brain shows no evidence of skull fracture, no acute hemorrhage. Patient was reassured that her COVID swab is negative. That was what she was most concerned about. I do not feel that antibiotics are indicated. I feel she can be discharged safely home with follow-up. Return instructions to the emergency department were reviewed. Disposition is discharged home in stable condition. Lab Data Attestation: I reviewed the patient's lab results. Labs: Laboratory Results - last 24 hr 02/07/22 02/07/22 02/07/22 09:08 09:08 09:19 WBC 6.6 RBC 4.97 Hgb 15.0 Hct 46.5 MCV 93.6 MCH 30.2 MCHC 32.3 RDW Std Deviation 43.8 RDW Coeff of Ayaka 12.9 Plt Count 153 MPV 10.3 Immature Gran % (Auto) 0.300 Neut % (Auto) 61.2 Lymph % (Auto) 29.2 Steele % (Auto) 7.3 Eos % (Auto) 1.4 Baso % (Auto) 0.6 Absolute Neuts (auto) 4.1 Absolute Lymphs (auto) 1.93 Nucleated RBC % 0 Sodium 138 Potassium 3.8 Chloride 108 H Carbon Dioxide 27.0 Anion Gap 3 L BUN 15 Creatinine 0.62 Estim Creat Clear Calc 76.45 Est GFR (MDRD) Af Amer 129 Est GFR (MDRD) Non-Af 106 BUN/Creatinine Ratio 24.4 H Glucose 146 H Calcium 9.3 Total Bilirubin 0.80 AST 17 ALT 28 Alkaline Phosphatase 74 Total Protein 7.4 Albumin 3.9 Globulin 3.5 Albumin/Globulin Ratio 1.1 Urine Color Yellow Urine Clarity Sl. Cloudy Urine pH 6.5 Ur Specific [place] 1.015 Urine Protein 30 H Urine Glucose (UA) Normal Urine Ketones 5 H Urine Occult Blood 10 H Urine Nitrite Negative Urine Bilirubin Negative Urine Urobilinogen Normal Ur Leukocyte Esterase 25 H Urine RBC 0-5 SEEN Urine WBC 0 SEEN Ur Squamous Epith Cells 0-5 SEEN Other Crystals Urine Bacteria 0 SEEN Urine Mucus 0 SEEN Radiography Diagnostic Testing: Clinical Impression(s) from Imaging Studies Brain CT 02/07/22 08:49 IMPRESSION: Chronic involutional changes of the brain. Electronically Signed: Christian Gill MD at 12:08 EST , Discharge Plan Triage Chief Complaint: General Illness ED Provider: Bryan Tam Dx/Rx/DC Orders Clinical Impression: URI (upper respiratory infection), Syncope, Contusion of periorbital region, left Instructions: ED Eye Contusion, ED Fainting, Uncertain Cause, ED URI, Viral, No Abx (Adult) Prescriptions: No Action Ventolin HFA 90 mcg/actuation HFA aerosol inhaler 2 puff INHALATION Q4H PRN (Reason: shortness of breath or wheezing) Qty: 18 2RF potassium chloride 20 mEq tablet,ER particles/crystals 20 meq PO DAILY gabapentin 600 MG tablet 600 mg PO TIDCM Label Comments: nerve pain diltiazem HCl 180 mg capsule,extended release 24hr 180 mg PO DAILY Label Comments: heart rate lisinopril 20 MG tablet 10 mg PO DAILY Label Comments: blood pressure hydrochlorothiazide 25 MG tablet 12.5 mg PO DAILY Label Comments: blood pressure cephalexin [cephalexin] 500 MG capsule 500 mg PO Q6 Qty: 28 0RF ondansetron 4 mg tablet,disintegrating 4 mg PO Q8H PRN (Reason: nausea and vomiting) Qty: 10 0RF Primary Care Provider: Care Physician,No Primary Referrals: Care Physician,No Primary [Primary Care Provider] - Disposition Disposition: Home, Self Care
--- NOTE | 2022-02-07 08:54 | EKG12_ITS ---
Test Reason : SOB Blood Pressure : / mmHG Vent. Rate : 074 BPM Atrial Rate : 074 BPM P-R Int : 170 ms QRS Dur : 076 ms QT Int : 374 ms P-R-T Axes : 046 -37 016 degrees QTc Int : 415 ms Normal sinus rhythm Left axis deviation Minimal voltage criteria for LVH, may be normal variant ( R in aVL ) Abnormal ECG When compared with ECG of 02-JUL-2021 15:49, No significant change was found Confirmed by JAGDEEP FARRELL, DONG ([id number]), scientific editor ADI PIERRE ([id number]) on 02/14/2022 11:13:24 AM Referred By: Confirmed By:DARA GANNON MD
[2022-02-07 09:10] VITALS: BP 181/123; PULSE 90; RESP 16; TEMP 36.3; O2SAT 97
[2022-02-07 09:14] LABS: Absolute Lymphocyte Count 1.93 X10^3/uL (0.83-4.51); Absolute Neutrophil Count 4.1 X10^3/uL (2.0-7.7); Basophil# 0.04 X10^3/uL; Basophil% 0.6 % (0-1); Eosinophil# 0.09 X10^3/uL; Eosinophils% 1.4 % (0-5); Hematocrit 46.5 % (37-47); Lymphocyte # 1.93 X10^3/ul (0.83-4.51); Lymphocyte % 29.2 % (19-41); Mean Corp Hgb Conc 32.3 g/dL (32-36); Mean Corpuscular Hgb 30.2 pg (27.0-32.0); Mean Corpuscular Volume 93.6 fL (81-99); Mean Platelet Vol. 10.3 fl (6.2-12.0); Monocyte# 0.48 X10^3/uL; Monocyte% 7.3 % (0-10); NRBC Flagged by Analyzer 0 % (0-5); Neutrophil # 4.05 X10^3/uL (2.7-7.7); Neutrophil % 61.2 % (47-70); Platelet Count 153 K/mm3 (150-450); RBC Distribution Width CV 12.9 % (11.6-14.6); RBC Distribution Width SD 43.8 fl (35.1-43.9); Red Blood Count 4.97 M/mm3 (4.2-5.4); White Blood Count 6.6 K/mm3 (4.4-11.0)
[2022-02-07] MEDS: 0.9% Normal Saline 1,000 ML 999 ML IV (09:15)
[2022-02-07] MEDS: Ondansetron 4 MG/2 ML Vial IV (09:16)
[2022-02-07 09:24] LABS: Bacteria 0 SEEN /hpf (None Seen); Mucous, Urine 0 SEEN /hpf (<or=2+); White Blood Cells 0 SEEN /hpf (0-5)
[2022-02-07 09:27] LABS: Color, Urine Yellow (Yellow); Glucose, Dipstick Normal (Normal); Ketone-Dipstick 5 mg/dl (Negative); Leukocyte Esterase-Dipstick 25 /ul (Negative); Nitrite-Dipstick Negative (Negative); Occult Blood-Urine 10 /ul (Negative); Protein-Dipstick 30 mg/dl (Negative); Specific Gravity, Urine 1.015 (1.002-1.030); Urine Bilirubin Dipstick Negative (Negative); Urine Clarity Sl. Cloudy (Clear); Urine Urobilinogen Normal (Normal); Urine pH 6.5 (5.0 - 8.0)
[2022-02-07 09:30] LABS: ALB/GLOB Ratio 1.1 RATIO (0.9-2.4); AST(SGOT) 17 U/L (15-37); Alanine Aminotransfer ALT/SGPT 28 U/L (13-56); Albumin, Serum 3.9 g/dL (3.2-5.0); Alkaline Phosphatase 74 U/L (45-117); Anion Gap 3 (5-15); BUN 15 mg/dL (7-18); BUN/Creat Ratio 24.4 RATIO (10-20); Calcium,Total 9.3 mg/dL (8.5-10.1); Chloride 108 mmol/L (98-107); Creatinine, Serum 0.62 mg/dL (0.55-1.02); EST Glomerular Filtration Rate 106 mL/min (>60); Est Glom Filt Rate - Afr Amer 129 mL/min (>60); Estimated Creatinine Clearance 76.45 ml/min; Globulin 3.5 g/dL (2.2-4.2); Glucose 146 mg/dL (74-106); Potassium 3.8 mmol/L (3.5-5.1); Protein, Total 7.4 g/dL (6.4-8.2); Sodium Level 138 mmol/L (136-145)
[2022-02-07 10:16] LABS: Red Blood Cells-Urine 0-5 SEEN /hpf (0-5)
[2022-02-07 10:17] LABS: Squamous Epithelial Cells - UA 0-5 SEEN /hpf (5-10)
[2022-02-07 11:06] VITALS: BP 134/87; PULSE 87; RESP 16; O2SAT 97
[2022-02-07 12:21] VITALS: BP 138/77; PULSE 82; RESP 16; O2SAT 97
== END 2022-02-07 12:21 | disposition home or self-care (01) ==
PROVIDERS: Emergency Provider Emergency Medicine; Visit Provider Emergency Medicine
DX: S05.12XA Contusion of eyeball and orbital tissues, left eye, initial encounter (principal); J44.9 Chronic obstructive pulmonary disease, unspecified; J06.9 Acute upper respiratory infection, unspecified; R11.10 Vomiting, unspecified; F17.210 Nicotine dependence, cigarettes, uncomplicated; R55 Syncope and collapse; Z20.822 Contact with and (suspected) exposure to COVID-19; W19.XXXA Unspecified fall, initial encounter
CPT/HCPCS: 70450; 80053; 81001; 85025; 87428; 93005; 96361; 96374; 99283; J7030; A4216; J2405

== ENCOUNTER 2022-04-04 07:07 | Emergency (ER) | payer BC, SELFPAY ==
[2022-04-04 07:10] VITALS: BP 168/110; PULSE 89; RESP 18; TEMP 36; O2SAT 96; BMI 40.4
--- NOTE | 2022-04-04 07:21 | EX.ED.DYSGE1 ---
HPI History of Present Illness Chief Complaint: Nausea/Vomiting Informant: patient Onset/Context/Timing Onset: Yesterday Current Severity: Moderate Maximum Severity: Moderate Narrative Narrative: Patient present secondary to nausea and vomiting with concerns of dehydration. She states that last weekend she developed symptoms of UTI including dysuria and frequency. She has noted some back pain near her kidneys. Yesterday she developed nausea and vomiting with some diarrhea. She reports some low-grade fevers at home up to 99.1. PFSH COUNT INCLUDES THE [facility] Medical History Aortic stenosis Asthma-COPD overlap syndrome Atrial fibrillation COPD (chronic obstructive pulmonary disease) Family history of CVA Hypertension Multiple sclerosis Palpitations Paroxysmal atrial fibrillation Premature atrial contractions Premature ventricular contraction Seizures Tobacco abuse Home Medications albuterol sulfate 90 mcg/actuation aerosol inhaler (Ventolin HFA) 2 puff inhalation Q4H PRN shortness of breath or wheezing #18 grams 05/15/18 [Rx Last Taken Unknown] potassium chloride 20 mEq tablet,extended release(part/cryst) 20 meq PO DAILY supplement 10/03/20 [History Last Taken Unknown] diltiazem HCl 180 mg capsule,extended release 24 hr 180 mg PO DAILY heart 11/14/20 [History Last Taken 11/14/20] gabapentin 600 mg tablet 600 mg PO TIDCM nerve pain 11/14/20 [History Last Taken 11/13/20] hydrochlorothiazide 25 mg tablet 12.5 mg PO DAILY blood pressure 11/14/20 [History Last Taken 11/14/20] lisinopril 20 mg tablet 10 mg PO DAILY bp 11/14/20 [History Last Taken 11/14/20] cephalexin 500 mg capsule 500 mg PO Q6 #28 caps 07/02/21 [Rx Last Taken Unknown] ondansetron 4 mg disintegrating tablet 4 mg PO Q8H PRN nausea and vomiting #10 tabs 07/02/21 [Rx Last Taken Unknown] ondansetron 4 mg disintegrating tablet 4 mg PO Q8H PRN PRN Nausea #10 tabs 04/04/22 [Rx Last Taken Unknown] sulfamethoxazole 800 mg-trimethoprim 160 mg tablet (Bactrim DS) 1 tab PO BID #20 tabs 04/04/22 [Rx Last Taken Unknown] Allergy/AdvReac Type Severity Reaction Status Date / Time lorazepam [From Ativan] AdvReac Severe Other Verified 04/04/22 07:08 Family History Mother Myocardial infarction Hypertension Breast cancer Father CVA (cerebral vascular accident) Myocardial infarction Diabetes CAD (coronary artery disease) Brother CVA (cerebral vascular accident) CAD (coronary artery disease) Sister Afib Surgical History History of total hysterectomy Social History Smoking Status: Current every day smoker tobacco type: cigarettes how long ago did patient quit smokin, 0.5ppd second hand exposure: Yes alcohol intake: never substance use type: does not use caffeine: Yes Type: coffee what type of physical activity do you participate in: none seatbelt use: always do you feel safe at home: Yes ROS ROS ED Constitutional Constitutional ED: Reports chills and fever(s) Eyes Eyes: Denies change in vision or discharge from eye(s) ENT ENT ED: Denies discharge from eye(s), rhinorrhea or sore throat Cardiovascular Cardiovascular: Denies chest pain or palpitations Respiratory/Chest Respiratory/Chest: Denies cough or dyspnea Gastrointestinal Gastrointestinal: Reports abdominal pain, diarrhea, nausea and vomiting Genitourinary Genitourinary ED: Reports dysuria and urinary frequency Musculoskeletal Musculoskeletal: Reports back pain; Denies extremity pain Integumentary Denies Abrasions or rash Neurologic Neurologic: Denies headache(s) or weakness Psychiatric Psychiatric: Denies anxiety or depression Allergic/Immunologic Allergic/Immunologic ED: Denies lip swelling or urticaria EXAM Physical Exam Const Vital Signs: 04/04/22 07:10 Temperature 96.8 F L Temperature Source Temporal Pulse Rate 89 Respiratory Rate 18 Blood Pressure 168/110 H Blood Pressure Mean 129 Pulse Ox 96 Oxygen Delivery Method Room Air Positive well nourished and well developed General Appearance ED: well developed HEENT Reports normocephalic and head/scalp atraumatic Eyes PERRL and EOMs intact bilaterally Neck supple Chest Wall inspection of chest normal and palpation of chest normal Resp normal respiratory effort and clear to auscultation bilaterally Cardio regular rate and regular rhythm GI GI Narrative: Mild epigastric and right upper quadrant tenderness to palpation. Hypoactive but present bowel sounds are noted. No guarding or rebound. Palpation: soft Back/Spine General Back: CVA tenderness Extremity normal to inspection Neuro oriented x3 and no sensory deficits noted Sensorium / Orientation: alert Motor Exam: strength 5/5 throughout Psych mental status grossly normal Skin no rashes or lesions noted MDM MDM MDM Narrative Medical decision making narrative: Differential diagnosis at this time includes gastroenteritis, UTI, pyelonephritis. IV line established. Patient given IV fluids along with Zofran. Lab work obtained to evaluate for leukocytosis and electrolyte abnormality. Urinalysis obtained to look for infection. Lab Data Attestation: I reviewed the patient's lab results. Labs: Laboratory Results - last 24 hr 04/04/22 04/04/22 04/04/22 07:30 07:30 07:40 WBC 9.3 RBC 5.15 Hgb 15.1 H Hct 46.7 MCV 90.7 MCH 29.3 MCHC 32.3 RDW Std Deviation 41.3 RDW Coeff of Ayaka 12.6 Plt Count 163 MPV 10.3 Immature Gran % (Auto) 0.900 Neut % (Auto) 73.3 H Lymph % (Auto) 18.8 L [place] % (Auto) 5.9 Eos % (Auto) 0.6 Baso % (Auto) 0.5 Absolute Neuts (auto) 6.8 Absolute Lymphs (auto) 1.75 Nucleated RBC % 0 Sodium 138 Potassium 3.9 Chloride 106 Carbon Dioxide 24.0 Anion Gap 8 BUN 19 H Creatinine 0.53 L Estim Creat Clear Calc 89.44 Est GFR (MDRD) Af Amer 154 Est GFR (MDRD) Non-Af 127 BUN/Creatinine Ratio 36.0 H Glucose 153 H Calcium 9.3 Total Bilirubin 0.60 Direct Bilirubin 0.19 AST 54 H ALT 76 H Alkaline Phosphatase 92 Total Protein 7.6 Albumin 4.0 Globulin 3.6 Lipase 55 L Urine Color Yellow Urine Clarity Clear Urine pH 7.0 Ur Specific [place] 1.010 Urine Protein 30 H Urine Glucose (UA) Normal Urine Ketones Negative Urine Occult Blood 25 H Urine Nitrite Positive H Urine Bilirubin Negative Urine Urobilinogen Normal Ur Leukocyte Esterase 25 H Urine RBC 0-5 SEEN Urine WBC 5-10 SEEN Ur Squamous Epith Cells 0 SEEN Urine Bacteria 3+ Urine Mucus 0 SEEN Treatment and Re-Evaluation Narrative: CBC is normal with no significant left shift. Hemoglobin is slightly concentrated at 15.1. Chemistry studies are unremarkable with normal creatinine. Glucose is 153. LFTs significant for an AST of 54 and an ALT of 76. This is actually improved when compared to her prior values. Lipase is normal at 55. Urinalysis does reveal infection with positive nitrites, 5-10 white cells, 3+ bacteria. Urine culture has been sent. She is given a dose of Rocephin here. I will treat her with a 10-day course of Bactrim for pyelonephritis along with Zofran for nausea. Return instructions are provided. Discharge Plan Triage Chief Complaint: Nausea/Vomiting ED Provider: Jyothi Zambrano Dx/Rx/DC Orders Clinical Impression: Pyelonephritis, Vomiting Instructions: ED Pyelonephritis, Female (Adult), ED Vomiting (Adult) Prescriptions: New ondansetron 4 mg tablet,disintegrating 4 mg PO Q8H PRN PRN (Reason: Nausea) Qty: 10 0RF sulfamethoxazole-trimethoprim [Bactrim DS] 800-160 mg tablet 1 tab PO BID Qty: 20 0RF No Action Ventolin HFA 90 mcg/actuation HFA aerosol inhaler 2 puff INHALATION Q4H PRN (Reason: shortness of breath or wheezing) Qty: 18 2RF potassium chloride 20 mEq tablet,ER particles/crystals 20 meq PO DAILY gabapentin 600 MG tablet 600 mg PO TIDCM Label Comments: nerve pain diltiazem HCl 180 mg capsule,extended release 24hr 180 mg PO DAILY Label Comments: heart rate lisinopril 20 MG tablet 10 mg PO DAILY Label Comments: blood pressure hydrochlorothiazide 25 MG tablet 12.5 mg PO DAILY Label Comments: blood pressure cephalexin [cephalexin] 500 MG capsule 500 mg PO Q6 Qty: 28 0RF ondansetron 4 mg tablet,disintegrating 4 mg PO Q8H PRN (Reason: nausea and vomiting) Qty: 10 0RF Primary Care Provider: Care Physician,No Primary Referrals: Anisha Alcala MD [Med Staff - [employer]] - As Needed Care Physician,No Primary [Primary Care Provider] - Disposition Disposition: Home, Self Care
[2022-04-04] MEDS: 0.9% Normal Saline 1,000 ML 150 ML IV (07:38)
[2022-04-04] MEDS: Ondansetron 4 MG/2 ML Vial IV (07:38)
[2022-04-04 07:45] LABS: Absolute Lymphocyte Count 1.75 X10^3/uL (0.83-4.51); Absolute Neutrophil Count 6.8 X10^3/uL (2.0-7.7); Basophil# 0.05 X10^3/uL; Basophil% 0.5 % (0-1); Eosinophil# 0.06 X10^3/uL; Eosinophils% 0.6 % (0-5); Hematocrit 46.7 % (37-47); Hemoglobin 15.1 g/dL (12.0-15.0); Lymphocyte # 1.75 X10^3/ul (0.83-4.51); Lymphocyte % 18.8 % (19-41); Mean Corp Hgb Conc 32.3 g/dL (32-36); Mean Corpuscular Hgb 29.3 pg (27.0-32.0); Mean Corpuscular Volume 90.7 fL (81-99); Mean Platelet Vol. 10.3 fl (6.2-12.0); Monocyte# 0.55 X10^3/uL; Monocyte% 5.9 % (0-10); NRBC Flagged by Analyzer 0 % (0-5); Neutrophil # 6.82 X10^3/uL (2.7-7.7); Neutrophil % 73.3 % (47-70); Platelet Count 163 K/mm3 (150-450); RBC Distribution Width CV 12.6 % (11.6-14.6); RBC Distribution Width SD 41.3 fl (35.1-43.9); Red Blood Count 5.15 M/mm3 (4.2-5.4); White Blood Count 9.3 K/mm3 (4.4-11.0)
[2022-04-04 07:48] LABS: Mucous, Urine 0 SEEN /hpf (<or=2+); Squamous Epithelial Cells - UA 0 SEEN /hpf (5-10)
[2022-04-04 07:55] LABS: Color, Urine Yellow (Yellow); Glucose, Dipstick Normal (Normal); Ketone-Dipstick Negative (Negative); Leukocyte Esterase-Dipstick 25 /ul (Negative); Nitrite-Dipstick Positive (Negative); Occult Blood-Urine 25 /ul (Negative); Protein-Dipstick 30 mg/dl (Negative); Urine Bilirubin Dipstick Negative (Negative); Urine Urobilinogen Normal (Normal)
[2022-04-04 07:57] LABS: Urine Clarity Clear (Clear)
[2022-04-04 08:05] LABS: Bacteria 3+ /hpf (None Seen); Red Blood Cells-Urine 0-5 SEEN /hpf (0-5); White Blood Cells 5-10 SEEN /hpf (0-5)
[2022-04-04 08:05] LABS: AST(SGOT) 54 U/L (15-37); Alanine Aminotransfer ALT/SGPT 76 U/L (13-56); Alkaline Phosphatase 92 U/L (45-117); Anion Gap 8 (5-15); BUN 19 mg/dL (7-18); Bilirubin, Direct 0.19 mg/dL (0.00-0.30); Calcium,Total 9.3 mg/dL (8.5-10.1); Chloride 106 mmol/L (98-107); Creatinine, Serum 0.53 mg/dL (0.55-1.02); EST Glomerular Filtration Rate 127 mL/min (>60); Est Glom Filt Rate - Afr Amer 154 mL/min (>60); Estimated Creatinine Clearance 89.44 ml/min; Globulin 3.6 g/dL (2.2-4.2); Glucose 153 mg/dL (74-106); Lipase 55 U/L (73-393); Potassium 3.9 mmol/L (3.5-5.1); Protein, Total 7.6 g/dL (6.4-8.2); Sodium Level 138 mmol/L (136-145)
[2022-04-04] MEDS: Ceftriaxone 1 GM/50 ML BAG IV (08:43)
[2022-04-04 09:14] VITALS: BP 172/93; PULSE 76; RESP 14; O2SAT 96
[2022-04-04 09:39] VITALS: RESP 16
== END 2022-04-04 09:39 | disposition home or self-care (01) ==
PROVIDERS: Emergency Provider Emergency Medicine; Visit Provider Emergency Medicine
DX: N12 Tubulo-interstitial nephritis, not specified as acute or chronic (principal); J44.9 Chronic obstructive pulmonary disease, unspecified; R11.2 Nausea with vomiting, unspecified; F17.210 Nicotine dependence, cigarettes, uncomplicated; E86.0 Dehydration
CPT/HCPCS: 80048; 80076; 81001; 83690; 85025; 87077; 87086; 87088; 87186; 99283; J7030; J7040; A4216; J2405

== ENCOUNTER → 2022-04-17 | Outpatient (CLI) | payer BC, SELFPAY ==
[2022-04-17 12:33] LABS: Anion Gap 8 (5-15); BUN 15 mg/dL (7-18); BUN/Creat Ratio 24.9 RATIO (10-20); Calcium,Total 9.8 mg/dL (8.5-10.1); Chloride 104 mmol/L (98-107); Cholesterol 140 mg/dL (200); EST Glomerular Filtration Rate 109 mL/min (>60); Est Glom Filt Rate - Afr Amer 132 mL/min (>60); Glucose 102 mg/dL (74-106); High Density Lipoprotein 30 mg/dL; Sodium Level 138 mmol/L (136-145); Triglycerides 117 mg/dL; Very Low Density Lipoprotein 23 mg/dL (5-40)
[2022-04-17 12:49] LABS: Hemoglobin A1c 5.9 % (3.8-5.6)
== END | disposition home or self-care (01) ==
LOC: BIMLAB 09:36
PROVIDERS: PCP Internal Medicine; Referring Provider Internal Medicine; Visit Provider Internal Medicine
DX: I10 Essential (primary) hypertension (principal); R73.03 Prediabetes
CPT/HCPCS: 36415; 80048; 80061; 83036

== ENCOUNTER → 2022-07-01 | Outpatient (CLI) | payer BC, SELFPAY ==
--- NOTE | 2022-07-01 07:16 | MRI_ITS ---
EXAM: MR RIGHT LOWER EXTREMITY WITHOUT INTRAVENOUS CONTRAST, KNEE CLINICAL INDICATION: Pain TECHNIQUE: Multiplanar and multisequence MR images of the right knee without intravenous contrast. COMPARISON: No relevant prior studies available. FINDINGS: BONES/JOINTS: Nondisplaced acute fracture involving the peripheral aspect of the medial tibial plateau with adjacent bone marrow edema. Prominent peripheral marginal osteophyte at the medial femoral condyle. No synovial hypertrophy. EXTENSOR MECHANISM: Unremarkable. MEDIAL MENISCUS: Tear of the posterior root ligament of the medial meniscus with associated 3 mm of peripheral extrusion of the body segment of the medial meniscus. LATERAL MENISCUS: Unremarkable. MEDIAL CAPSULE/SUPPORTING STRUCTURES: Unremarkable. Intact. LATERAL CAPSULE/SUPPORTING STRUCTURES: Unremarkable. Lateral collateral ligamentous complex, inclusive of the popliteal tendon, are intact. ANTERIOR CRUCIATE LIGAMENT: Intact. POSTERIOR CRUCIATE LIGAMENT: Intact. MUSCLES: Unremarkable. CARTILAGE: Unremarkable. Intact. FLUID: Small suprapatellar joint effusion. OTHER SOFT TISSUES: See above. MRI/Lower Ext Joint Only (Routine) IMPRESSION: 1. Nondisplaced acute fracture involving the peripheral aspect of the medial tibial plateau with adjacent bone marrow edema. 2. Tear of the posterior root ligament of the medial meniscus with associated 3 mm of peripheral extrusion of the body segment of the medial meniscus. Electronically Signed: Rickie Valladares MD at 3:59 EDT ,
== END | disposition home or self-care (01) ==
LOC: MRI 07:16
PROVIDERS: PCP Internal Medicine
DX: M23.91 Unspecified internal derangement of right knee (principal)
CPT/HCPCS: 73721

== ENCOUNTER 2023-03-31 07:38 | Emergency (ER) | payer OTHER, SELFPAY ==
[2023-03-31 07:39] VITALS: BP 140/70; PULSE 72; RESP 22; TEMP 36.2; O2SAT 98; BMI 43.1
--- OUTSIDE RECORDS SUMMARY | 2023-03-31 08:03 | XMS RPT_ITS | CCD ---
Author Name Unknown Address [address] [place] [address] Organization [facility] Care Team Providers Care Supply Chain Tech Name Role Phone Ernestine Dasilva Unavailable Unavailable Ernestine Dasilva Unavailable Unavailable Eliseo Mcwilliams Unavailable Unavailable Allergies Allergy Classification Reported Allergen(s) Allergy Type Date of Onset Reaction(s) Facility (3 sources) LORazepam drug allergy 03-04-2015 sedates - can't wake up [facility] Work Phone: Medications Completed/Discontinued Medications Medication Drug Class(es) Dates Sig (Normalized) Sig (Original) 8 hr acetaminophen 650 mg extended release oral tablet (6 sources) Start: 03-04-2015 End: 03-11-2015 take 1 tablet by mouth every four hours as needed ACETAMINOPHEN ER 650 MG CR-TABS One tablet by mouth four hours as needed ACETAMINOPHEN [id number] Salina Gary RN ALBUTEROL SULFATE (6 sources) beta2-Adrenergic Agonist Start: 03-11-2015 PROVENTIL HFA 108 (90 Base) MCG/ACT AERS 2 puffs every 8 hours as needed ALBUTEROL SULFATE [id number] Carter Alvarado MD Problems Active Problems Problem Classification Problem Date Documented Da te Episodic/Chronic Cardiac dysrhythmias (9 sources) Paroxysmal atrial fibrillation; Translations: [Ventricular premature beats] Onset: 03-04-2015 03-11-2015 Chronic Essential hypertension (3 sources) Hypertensive disorder; Translations: [Essential (primary) hypertension] Onset: 03-04-2015 03-04-2015 Chronic Heart valve disorders (3 sources) Aortic valve stenosis; Translations: [Nonrheumatic aortic (valve) stenosis] Onset: 03-04-2015 03-04-2015 Chronic Other nutritional; endocrine; and metabolic disorders (9 sources) Body mass index (BMI) 40.0-44.9, adult; Translations: [Body mass index (BMI) 35.0-35.9, adult] Onset: 03-11-2015 01-20-2016 Chronic Screening or history of mental health and substance abuse (3 sources) Tobacco dependence syndrome; Translations: [Nicotine dependence, unspecified, uncomplicated] Onset: 03-04-2015 03-04-2015 Chronic Past or Other Problems Problem Classification Problem Date Documented Da te Episodic/Chronic Cardiac dysrhythmias (3 sources) Palpitations; Translations: [Palpitations] Onset: 03-04-2015 03-04-2015 Episodic Other lower respiratory disease (3 sources) Dyspnea; Translations: [Shortness of breath] Onset: 03-04-2015 03-04-2015 Episodic Unclassified (6 sources) FH: Hypertension; Translations: [Family history of stroke] 03-11-2015 Episodic Results Test Name Value Interpretation Reference Range Facil ity Vital Signs Date Time Vital Sign Value Performing Clinician Facbrian michael 07-19-2016 11:22-0400 BMI (Body Mass Index) 42.28 kg/m2 Ernestine [facility] Work Phone: 07-19-2016 11:22-0400 BP Diastolic 66 mm[Hg] Ernestine Dasilva [facility] Work Phone: 07-19-2016 11:22-0400 BP Systolic 126 mm[Hg] Ernestine Dasilva [facility] Work Phone: 07-19-2016 11:22-0400 Weight 104.87 kg Ernestine Dasilva [facility] Work Phone: 01-20-2016 13:05-0500 BMI (Body Mass Index) 40.42 kg/m2 [facility] Work Phone: 01-20-2016 13:05-0500 BP Diastolic 64 mm[Hg] Eliseo Sunseais [facility] Work Phone: 01-20-2016 13:05-0500 BP Systolic 118 mm[Hg] Eliseo Sunseais [facility] Work Phone: 01-20-2016 13:05-0500 BSA (Body Surface Area) 2 m2 Eliseo Sunseais [facility] Work Phone: 01-20-2016 13:05-0500 Pulse (Heart Rate) 68 /min Harumi DeFinis [facility] Work Phone: 01-20-2016 13:05-0500 Respiratory Rate 18 /min Harumi DeFinis [facility] Work Phone: 01-20-2016 13:05-0500 Weight 100.25 kg Harumi DeFinis [facility] Work Phone: 03-11-2015 11:05-0500 Height 157.48 cm Harumi DeFinis [facility] Work Phone: Procedures Date Procedure Procedure Detail Performing Clinician Start: 07-19-2016 End: 07-19-2016 Follow Up Appt 6 months Hanh granados PA-C Work Phone: Start: 07-19-2016 End: 07-19-2016 PFM Hanh Stephenson PA-C Work Phone: Start: 01-20-2016 End: 01-20-2016 Follow Up Appt 6 months Carter Alvarado MD Start: 01-20-2016 End: 07-14-2016 Follow Up Appt Other Carter Alvarado MD Start: 01-20-2016 End: 01-20-2016 MMM Carter Alvarado MD Start: 04-09-2015 End: 04-09-2015 Follow Up Appt 6 months Hanh granados PA-C Work Phone: Start: 04-09-2015 End: 04-09-2015 PFAdelia Stephenson PA-C Work Phone: Start: 03-11-2015 End: 03-11-2015 Electrocardiogram, complete Carter Alvarado MD Start: 03-11-2015 End: 03-11-2015 Follow Up Appt 1 month Carter Alvarado MD Start: 03-11-2015 End: 03-11-2015 MMM Carter Alvarado MD Start: 03-11-2015 End: 04-02-2015 Nuclear stress test -Sha Alvarado MD Plan of Treatment Date Care Activity Detail Author Start: 03-21-2017 End: 03-21-2017 Appointment Appointment [facility] Work Phone: Start: 07-19-2016 End: 07-19-2016 Appointment Appointment [facility] Work Phone: Start: 07-19-2016 End: 07-19-2016 Follow Up Appt 6 months Follow Up Appt 6 months [facility] Work Phone: Start: 07-19-2016 End: 07-19-2016 PFM PFM [facility] Work Phone: Start: 07-19-2016 End: 07-19-2016 Remote 30 day ecg rev/report 30 Day Holter Monitor [facility] Work Phone: Start: 01-20-2016 End: 01-20-2016 Follow Up Appt 6 months Follow Up Appt 6 months [facility] Work Phone: Start: 01-20-2016 End: 07-14-2016 Follow Up Appt Other Follow Up Appt Other [facility] Work Phone: Start: 01-20-2016 End: 01-20-2016 MMM MMM [facility] Work Phone: Start: 04-09-2015 End: 04-09-2015 Follow Up Appt 6 months Follow Up Appt 6 months [facility] Work Phone: Start: 04-09-2015 End: 04-09-2015 PFM PFM [facility] Work Phone: Start: 03-11-2015 End: 03-11-2015 Electrocardiogram, complete EKG (In office) [facility] Work Phone: Start: 03-11-2015 End: 03-11-2015 Follow Up Appt 1 month Follow Up Appt 1 month [facility] Work Phone: Start: 03-11-2015 End: 03-11-2015 MMM MMM [facility] Work Phone: Start: 03-11-2015 End: 03-11-2015 Nuclear stress test -Lexiscan Nuclear stress test -Lexiscan [facility] Work Phone: Additional Source Comments FOR RECORDS PERTAINING TO PATIENTS WHO ARE OR HAVE BEEN ENROLLED IN A CHEMICAL DEPENDENCY/SUBSTANCEABUSE PROGRAM, SOME INFORMATION MAY BE OMITTED. This clinical summary was aggregated from multiple sources. Caution should be exercised in using it in the provision of clinical care. This summary normalizes information from multiple sources, and as a consequence, information in this document may materially change the coding, format and clinical context of patient data. In addition, data may be omitted in some cases. CLINICAL DECISIONS SHOULD BE BASED ON THE PRIMARY CLINICAL RECORDS. [email or web address] provides no warranty or guarantee of the accuracy or completeness of information in this document.
--- NOTE | 2023-03-31 08:08 | EDS_ITS ---
HPI History of Present Illness Chief Complaint: Hypertension Detail of Chief Complaint: Episode at work this morning. Informant: patient Onset/Context/Timing Onset: Today Context: Sudden Onset Current Severity: Gone Maximum Severity: Mild Narrative Narrative: 57-year-old female history of anemia, diabetes, COPD, A-fib and 2 prior strokes 4 years ago. She works at [employer]. Said her blood pressure was elevated today at 197/97. He took her blood sugar was 101. She was just feeling out of it . She denies any headache or chest pain. No shortness of breath. No abdominal pain. She has recently had some loose stools but is tested negative for COVID twice. They wanted her to be evaluated. Currently she states she feels fine and her vital signs are back to baseline. Prior similar symptoms: No Recent Illness/Hospitalization: No PFSH PFSH Medical History Anemia Aortic stenosis Asthma-COPD overlap syndrome Atrial fibrillation Borderline type 2 diabetes mellitus Colon cancer screening COPD (chronic obstructive pulmonary disease) Family history of CVA Frequent headaches Hypersomnolence Hypertension Multiple sclerosis Palpitations Paroxysmal atrial fibrillation Premature atrial contractions Premature ventricular contraction Preventative health care Seizures Tobacco abuse Home Medications albuterol sulfate 90 mcg/actuation aerosol inhaler (Ventolin HFA) 2 puff inhalation Q4H PRN shortness of breath or wheezing #18 grams 05/15/18 [Rx Last Taken Unknown] potassium chloride 20 mEq tablet,extended release(part/cryst) 20 meq PO DAILY supplement 10/03/20 [History Last Taken Unknown] diltiazem HCl 180 mg capsule,extended release 24 hr 180 mg PO DAILY heart 11/14/20 [History Last Taken 11/14/20] gabapentin 600 mg tablet 600 mg PO TIDCM nerve pain 11/14/20 [History Last Taken 11/13/20] ondansetron 4 mg disintegrating tablet 4 mg PO Q8H PRN nausea and vomiting #10 tabs 07/02/21 [Rx Last Taken Unknown] ondansetron 4 mg disintegrating tablet 4 mg PO Q8H PRN PRN Nausea #10 tabs 04/04/22 [Rx Last Taken Unknown] aspirin 81 mg tablet,delayed release 81 mg PO DAILY #90 tabs 04/17/22 [Rx Last Taken Unknown] hydrochlorothiazide 12.5 mg tablet 12.5 mg PO DAILY blood pressure #90 tabs 04/17/22 [Rx Last Taken Unknown] lisinopril 10 mg tablet 10 mg PO DAILY bp #90 tabs 04/17/22 [Rx Last Taken Unknown] meloxicam 15 mg tablet 15 mg PO DAILY Pain #30 tabs 07/04/22 [Rx Last Taken Unknown] Allergy/AdvReac Type Severity Reaction Status Date / Time lorazepam [From Ativan] AdvReac Severe Other Verified 04/17/22 08:47 Family History Mother Myocardial infarction Hypertension Breast cancer Arthritis Father CVA (cerebral vascular accident) Myocardial infarction Diabetes CAD (coronary artery disease) Alcoholism Arthritis Depression Hypertension Brother No problems noted. Sister Afib Asthma Lupus Diabetes CVA (cerebral vascular accident) CAD (coronary artery disease) Surgical History History of tonsillectomy and adenoidectomy History of total hysterectomy Social History Smoking Status: Current every day smoker tobacco type: cigarettes how long ago did patient quit smokin, 0.5ppd second hand exposure: Yes alcohol intake: never substance use type: does not use caffeine: Yes Type: coffee what type of physical activity do you participate in: none seatbelt use: always do you feel safe at home: Yes ROS ROS ED ROS Narrative Loose stools for 3 to 4 days. No fever. No vomiting. Review of Systems ROS Unobtainable: Denies due to encephalopathy Constitutional Constitutional ED: Denies chills or fever(s) Eyes Eyes: Denies blurry vision ENT ENT ED: Denies ear pain Cardiovascular Cardiovascular: Denies chest pain Respiratory/Chest Respiratory/Chest: Denies cough, dyspnea or dyspnea on exertion Gastrointestinal Gastrointestinal: Denies abdominal pain Genitourinary Genitourinary ED: Denies dysuria or hematuria Musculoskeletal Musculoskeletal: Denies arthralgias Integumentary Denies abscess Neurologic Neurologic: Denies headache(s) Psychiatric Psychiatric: Denies anxiety or depression Endocrine Endocrinology: Denies cold intolerance Hematologic/Lymphatic Hematologic/Lymphatic: Reports none Allergic/Immunologic Allergic/Immunologic ED: Denies mouth swelling, tongue swelling or urticaria EXAM Physical Exam Narrative Exam Narrative: Well-appearing 57-year-old female. Vital signs are stable afebrile. Her current blood pressure is 140/70. Her current heart rate is 72. Sinus rhythm on the monitor. HEENT exam normal. No facial droop. Normal speech. Moist mucous membranes. Extraocular motions are intact. Neck nontender no meningismus. No lymphadenopathy. Lungs clear to auscultation bilaterally. Heart regular rhythm rate about 70 no murmur. Chest wall and ribs nontender. Abdomen soft nontender. Moving all 4 extremities. 5 out of 5 digital print operator strength. Dorsi plantarflexion intact. Negative drift bilaterally. Fingertip to nose within normal limits. Normal sensation bilaterally. Neurologically she is awake and alert with no focal motor deficits. Answering questions and following commands. Back nontender. NIH score is 0. Const Vital Signs: 03/31/23 07:39 03/31/23 08:50 Temperature 97.2 F L Temperature Source Temporal Pulse Rate 72 69 Respiratory Rate 22 H 14 Blood Pressure 140/70 H 97/62 Blood Pressure Mean 93 73 Pulse Ox 98 99 Oxygen Delivery Method Room Air Room Air Positive well nourished and well developed; Negative for cachectic, contractures or unkempt General Appearance ED: well developed and NAD; Negative for unkempt, cachectic, contractures, cyanotic, diaphoretic or pallor Nutritional Appearance: Negative for cachectic HEENT Reports moist mucous membranes; Denies dry mucous membranes Negative for trauma or tenderness Mouth ED: No dry mucous membranes Mouth: No dry mucous membranes Eyes PERRL and EOMs intact bilaterally General Eye ED: Negative for pale conjunctiva or scleral icterus Neck no lymphadenopathy, supple and no JVD General: Negative for tenderness Lymph Lymphatic: Negative for other Chest Wall inspection of chest normal and palpation of chest normal Chest: Negative for other Resp normal respiratory effort and clear to auscultation bilaterally Effort and Inspection: Negative for retractions Auscultation: Negative for rales, rhonchi or wheezes Cardio regular rate, regular rhythm, S1 normal heart sound, S2 normal heart sound and no murmurs Rhythm: Negative for abnormal rhythm GI normal to inspection, nondistended, normoactive bowel sounds, non-tender, non- distended and no masses Inspection: Negative for abdominal distention Auscultation: normoactive bowel sounds Palpation: soft; Negative for tender or guarding Back/Spine no CVA tenderness General Back: Negative for CVA tenderness Cervical Spine: Negative for cervical spine tenderness Thoracic Spine / Upper Back: Negative for thoracic spinal tenderness Lumbar Spine / Lower Back: Negative for lumbar spinal tenderness Extremity normal to inspection General Extremety ED: Negative for edema or tenderness General Extremity: Negative for edema Neuro oriented x3, CN's II-XII intact bilaterally and no sensory deficits noted Neuro Narrative: Neurologic exam normal. Awake and alert. Answering questions and following commands. No facial droop. Equal and symmetrical 5 out of 5 digital print operator strength. Equal and symmetrical dorsi and plantarflexion. NIH score of 0. Sensorium / Orientation: alert; Negative for orientation impaired, lethargic or stuporous Motor Exam: strength 5/5 throughout Psych mental status grossly normal Appearance: Negative for unkempt Attitude: No agitated Mood & Affect: Negative for depressed, anxious or tearful Skin no rashes or lesions noted, no wounds and skin turgor normal General Skin Exam: elasticity normal; Negative for jaundice or pallor Lesions: No lesion noted Rashes: No rashes noted Trauma: Negative for abrasion Wounds: Negative for wounds noted MDM MDM MDM Narrative Medical decision making narrative: 57-year-old female with abnormal vital signs at work that is since resolved. This could have been A-fib RVR. They checked her blood sugar was 101 so that does not seem to be significantly off. Currently her exam and vital signs are normal. Screening labs are being obtained I do not think she needs any imaging. They have already done an EKG. Repeat exam patient is doing well at 8:50 AM. Exam unchanged and normal. She will be discharged home with outpatient follow-up. Patient and I discussed her test results. I rechecked the patient's blood pressure prior to discharge it was 119/64. She has no complaints. History & Record Review Discussion w/independent historian: Patient Additional record(s) reviewed:: Prior inpatient record, Prior outpatient record, Prior ED visit and Prior labs Lab Data Attestation: I reviewed the patient's lab results. Lab results narrative: CBC shows a white count of 10. H&H 13 and 41. Platelets of 142 and has a history of low platelets. Electrolytes show a potassium of 3.3 with prior labs similar. Gap of 3. BUN of 23 creatinine 0.6. Glucose 118. These are all consistent with prior labs. Labs: Laboratory Results - last 24 hr 03/31/23 08:20 WBC 10.1 RBC 4.50 Hgb 13.4 Hct 41.8 MCV 92.9 MCH 29.8 MCHC 32.1 RDW Std Deviation 42.8 RDW Coeff of Ayaka 12.4 Plt Count 142 L MPV 11.0 Immature Gran % (Auto) 0.300 Neut % (Auto) 56.5 Lymph % (Auto) 31.9 Webb % (Auto) 6.6 Eos % (Auto) 4.0 Baso % (Auto) 0.7 Absolute Neuts (auto) 5.7 Absolute Lymphs (auto) 3.21 Nucleated RBC % 0 Sodium 136 Potassium 3.3 L Chloride 105 Carbon Dioxide 28.0 Anion Gap 3 L BUN 23 H Creatinine 0.64 Estim Creat Clear Calc 107.33 Est GFR (MDRD) Af Amer 124 Est GFR (MDRD) Non-Af 102 BUN/Creatinine Ratio 36.2 H Glucose 118 H Calcium 9.5 Rhythm Strip Rhythm Strip: Sinus Rhythm Rate: 69 Ectopy: PVC(s) and PAC(s) EKG Initial EKG: Attestation: I personally reviewed and interpreted this EKG as follows: Interpretation: Sinus Rhythm and No Acute Injury Pattern Comments: Normal sinus rhythm rate of 69 no acute signs of GA or ischemia. Occasional PVCs. Discharge Plan Triage Chief Complaint: Hypertension ED Provider: Jaden Cummings Dx/Rx/DC Orders Clinical Impression: Elevated blood pressure reading, History of atrial fibrillation, History of stroke, History of diabetes mellitus Prescriptions: No Action Ventolin HFA 90 mcg/actuation HFA aerosol inhaler 2 puff INHALATION Q4H PRN (Reason: shortness of breath or wheezing) Qty: 18 2RF potassium chloride 20 mEq tablet,ER particles/crystals 20 meq PO DAILY lisinopril 10 mg tablet 10 mg PO DAILY Qty: 90 3RF hydrochlorothiazide 12.5 mg tablet 12.5 mg PO DAILY Qty: 90 3RF aspirin 81 mg tablet,delayed release (DR/EC) 81 mg PO DAILY Qty: 90 3RF meloxicam 15 mg tablet 15 mg PO DAILY Qty: 30 0RF Rx Instructions: Do not take in conjunction with other NSAIDs. Tylenol is okay. gabapentin 600 MG tablet 600 mg PO TIDCM Patient Comments: nerve pain diltiazem HCl 180 mg capsule,extended release 24hr 180 mg PO DAILY Patient Comments: heart rate ondansetron 4 mg tablet,disintegrating 4 mg PO Q8H PRN (Reason: nausea and vomiting) Qty: 10 0RF ondansetron 4 mg tablet,disintegrating 4 mg PO Q8H PRN PRN (Reason: Nausea) Qty: 10 0RF Primary Care Provider: Pattie Vaughan Referrals: Pattie Vaughan MD [Primary Care Provider] - 3-5 Days if not improving Activity Restrictions/Additional Instructions: Your labs today look good. Your exam is normal. Follow-up with your doctor as needed. Continue your normal medications. Disposition Disposition: Home, Self Care
[2023-03-31 08:37] LABS: Absolute Lymphocyte Count 3.21 X10^3/uL (0.83-4.51); Absolute Neutrophil Count 5.7 X10^3/uL (2.0-7.7); Basophil# 0.07 X10^3/uL; Basophil% 0.7 % (0-1); Hematocrit 41.8 % (37-47); Hemoglobin 13.4 g/dL (12.0-15.0); Lymphocyte # 3.21 X10^3/ul (0.83-4.51); Lymphocyte % 31.9 % (19-41); Mean Corp Hgb Conc 32.1 g/dL (32-36); Mean Corpuscular Hgb 29.8 pg (27.0-32.0); Mean Corpuscular Volume 92.9 fL (81-99); Monocyte# 0.66 X10^3/uL; Monocyte% 6.6 % (0-10); NRBC Flagged by Analyzer 0 % (0-5); Neutrophil # 5.69 X10^3/uL (2.7-7.7); Neutrophil % 56.5 % (47-70); Platelet Count 142 K/mm3 (150-450); RBC Distribution Width CV 12.4 % (11.6-14.6); RBC Distribution Width SD 42.8 fl (35.1-43.9); White Blood Count 10.1 K/mm3 (4.4-11.0)
[2023-03-31 08:39] LABS: Anion Gap 3 (5-15); BUN 23 mg/dL (7-18); BUN/Creat Ratio 36.2 RATIO (10-20); Calcium,Total 9.5 mg/dL (8.5-10.1); Chloride 105 mmol/L (98-107); Creatinine, Serum 0.64 mg/dL (0.55-1.02); EST Glomerular Filtration Rate 102 mL/min (>60); Est Glom Filt Rate - Afr Amer 124 mL/min (>60); Estimated Creatinine Clearance 107.33 ml/min; Glucose 118 mg/dL (74-106); Potassium 3.3 mmol/L (3.5-5.1); Sodium Level 136 mmol/L (136-145)
[2023-03-31 08:50] VITALS: BP 97/62; PULSE 69; RESP 14; O2SAT 99
== END 2023-03-31 09:05 | disposition home or self-care (01) ==
PROVIDERS: Emergency Provider Emergency Medicine; PCP Internal Medicine; Visit Provider Emergency Medicine
DX: R03.0 Elevated blood-pressure reading, without diagnosis of hypertension (principal); J44.9 Chronic obstructive pulmonary disease, unspecified; I48.0 Paroxysmal atrial fibrillation; E11.9 Type 2 diabetes mellitus without complications; F17.210 Nicotine dependence, cigarettes, uncomplicated; Z86.73 Personal history of transient ischemic attack (TIA), and cerebral infarction without residual deficits; I10 Essential (primary) hypertension; Z79.899 Other long term (current) drug therapy; Z79.82 Long term (current) use of aspirin; Z90.710 Acquired absence of both cervix and uterus
CPT/HCPCS: 80048; 85025; 93005; 99282; A4216

== ENCOUNTER 2023-04-26 10:51 | Outpatient (CLI) | payer OTHER, SELFPAY | END 2023-04-26 23:59 | disposition home or self-care (01) | LOC: LABSPEC 10:52 | PROVIDERS: PCP Internal Medicine; Referring Provider Nurse Practitioner; Visit Provider Nurse Practitioner | DX: R05.1 Acute cough (principal) | CPT/HCPCS: 87631 ==

== ENCOUNTER → 2023-11-16 | Outpatient (CLI) | payer SELFPAY ==
[2023-11-16 12:41] LABS: Absolute Lymphocyte Count 3.05 X10^3/uL (0.83-4.51); Absolute Neutrophil Count 5.1 X10^3/uL (2.0-7.7); Basophil# 0.06 X10^3/uL; Basophil% 0.6 % (0-1); Eosinophil# 0.43 X10^3/uL; Eosinophils% 4.6 % (0-5); Hemoglobin 13.8 g/dL (12.0-15.0); Lymphocyte # 3.05 X10^3/ul (0.83-4.51); Lymphocyte % 32.7 % (19-41); Mean Corp Hgb Conc 31.4 g/dL (32-36); Mean Corpuscular Hgb 29.9 pg (27.0-32.0); Mean Corpuscular Volume 95.4 fL (81-99); Monocyte# 0.65 X10^3/uL; NRBC Flagged by Analyzer 0 % (0-5); Neutrophil % 54.6 % (47-70); Platelet Count 155 K/mm3 (150-450); RBC Distribution Width CV 12.6 % (11.6-14.6); RBC Distribution Width SD 43.7 fl (35.1-43.9); Red Blood Count 4.61 M/mm3 (4.2-5.4); White Blood Count 9.3 K/mm3 (4.4-11.0)
[2023-11-16 13:12] LABS: AST(SGOT) 21 U/L (15-37); Alanine Aminotransfer ALT/SGPT 28 U/L (13-56); Albumin, Serum 3.8 g/dL (3.2-5.0); Alkaline Phosphatase 70 U/L (45-117); Anion Gap 4 (5-15); BUN 15 mg/dL (7-18); BUN/Creat Ratio 22.8 RATIO (10-20); Calcium,Total 9.5 mg/dL (8.5-10.1); Chloride 105 mmol/L (98-107); Cholesterol 134 mg/dL (200); Creatinine, Serum 0.66 mg/dL (0.55-1.02); EST Glomerular Filtration Rate 98 mL/min (>60); Est Glom Filt Rate - Afr Amer 119 mL/min (>60); Globulin 3.7 g/dL (2.2-4.2); Glucose 133 mg/dL (74-106); High Density Lipoprotein 20 mg/dL; Potassium 4.3 mmol/L (3.5-5.1); Protein, Total 7.5 g/dL (6.4-8.2); Sodium Level 138 mmol/L (136-145); Triglycerides 270 mg/dL; Very Low Density Lipoprotein 54 mg/dL (5-40)
[2023-11-16 14:28] LABS: Hemoglobin A1c 6.5 % (3.8-5.6)
== END | disposition home or self-care (01) ==
LOC: BIMLAB 09:19
PROVIDERS: PCP Internal Medicine; Referring Provider Physician Assistant; Visit Provider Physician Assistant
DX: I10 Essential (primary) hypertension (principal); E66.01 Morbid (severe) obesity due to excess calories; Z68.41 Body mass index [BMI] 40.0-44.9, adult; R73.03 Prediabetes
CPT/HCPCS: 36415; 80053; 80061; 83036; 85025

== ENCOUNTER 2024-01-10 15:15 | Emergency (ER) | payer MEDICARE, MEDICAID, SELFPAY ==
[2024-01-10 15:16] VITALS: BP 159/87; PULSE 75; RESP 16; TEMP 36.4; O2SAT 95
[2024-01-10 15:19] VITALS: BMI 46.2
[2024-01-10] MEDS: Ondansetron 4 MG/2 ML Vial IV (15:50)
[2024-01-10] MEDS: Morphine 4 MG/ML Syringe IV (15:51)
[2024-01-10 15:54] LABS: Absolute Neutrophil Count 7.1 X10^3/uL (2.0-7.7); Basophil# 0.07 X10^3/uL; Basophil% 0.6 % (0-1); Eosinophil# 0.28 X10^3/uL; Eosinophils% 2.4 % (0-5); Hematocrit 44.4 % (37-47); Hemoglobin 14.4 g/dL (12.0-15.0); Lymphocyte % 29.8 % (19-41); Mean Corp Hgb Conc 32.4 g/dL (32-36); Mean Corpuscular Hgb 30.3 pg (27.0-32.0); Mean Corpuscular Volume 93.5 fL (81-99); Mean Platelet Vol. 11.3 fl (6.2-12.0); Monocyte# 0.73 X10^3/uL; Monocyte% 6.2 % (0-10); NRBC Flagged by Analyzer 0 % (0-5); Neutrophil # 7.13 X10^3/uL (2.7-7.7); Neutrophil % 60.6 % (47-70); Platelet Count 156 K/mm3 (150-450); RBC Distribution Width CV 12.5 % (11.6-14.6); Red Blood Count 4.75 M/mm3 (4.2-5.4); White Blood Count 11.8 K/mm3 (4.4-11.0)
[2024-01-10 16:10] LABS: Anion Gap 6 (5-15); BUN 12 mg/dL (7-18); BUN/Creat Ratio 21.8 RATIO (10-20); Calcium,Total 9.6 mg/dL (8.5-10.1); Chloride 106 mmol/L (98-107); Creatinine, Serum 0.55 mg/dL (0.55-1.02); EST Glomerular Filtration Rate 120 mL/min (>60); Est Glom Filt Rate - Afr Amer 146 mL/min (>60); Glucose 138 mg/dL (74-106); Potassium 3.9 mmol/L (3.5-5.1); Sodium Level 137 mmol/L (136-145)
[2024-01-10 17:03] LABS: Mucous, Urine 0 SEEN /hpf (<or=2+)
[2024-01-10 17:15] VITALS: BP 149/75; PULSE 54; RESP 18; O2SAT 96
[2024-01-10 17:19] LABS: Color, Urine Yellow (Yellow); Glucose, Dipstick Normal (Normal); Ketone-Dipstick Negative (Negative); Leukocyte Esterase-Dipstick Negative /ul (Negative); Nitrite-Dipstick Negative (Negative); Occult Blood-Urine 10 /ul (Negative); Protein-Dipstick Negative (Negative); Specific Gravity, Urine 1.015 (1.002-1.030); Urine Bilirubin Dipstick Negative (Negative); Urine Clarity Clear (Clear); Urine Urobilinogen Normal (Normal)
[2024-01-10 17:58] VITALS: BMI 46.2
[2024-01-10] MEDS: Ketorolac 30 MG/ML Syringe IV (18:06)
[2024-01-10 18:52] LABS: Bacteria RARE /hpf (None Seen); Red Blood Cells-Urine 0-5 SEEN /hpf (0-5); Squamous Epithelial Cells - UA 0-5 SEEN /hpf (5-10); White Blood Cells 0-5 SEEN /hpf (0-5)
[2024-01-10 18:57] VITALS: PULSE 55; RESP 18; O2SAT 98
[2024-01-10] MEDS: HYDROcodone Bitartrate/Apap 5/325 Tablet PO (19:18)
[2024-01-10 19:19] VITALS: BP 165/101; PULSE 63; RESP 18; TEMP 36.6; O2SAT 98
== END 2024-01-10 19:22 | disposition home or self-care (01) ==
PROVIDERS: Emergency Provider Emergency Medicine; PCP Internal Medicine; Visit Provider Emergency Medicine
DX: R10.9 Unspecified abdominal pain (principal); J44.9 Chronic obstructive pulmonary disease, unspecified; I48.0 Paroxysmal atrial fibrillation; F17.210 Nicotine dependence, cigarettes, uncomplicated; I10 Essential (primary) hypertension; Z79.899 Other long term (current) drug therapy; Z90.710 Acquired absence of both cervix and uterus
CPT/HCPCS: 74176; 80048; 81001; 85025; 96374; 96375; 99282; J2405

== ENCOUNTER 2024-04-07 04:58 | Emergency (ER) | payer MEDICARE, SELFPAY ==
[2024-04-07 04:59] VITALS: BP 149/87; PULSE 79; RESP 18; TEMP 36.7; O2SAT 94; BMI 42.7
[2024-04-07 05:02] VITALS: BP 149/87; PULSE 62; RESP 18; TEMP 36.7; O2SAT 96
--- NOTE | 2024-04-07 05:17 | RAD_ITS ---
PROCEDURE: CHEST PA AND LATERAL REASON FOR EXAM: Shortness of breath. Cough TECHNIQUE: Frontal and lateral views of the chest. COMPARISON: 07/02/2021 FINDINGS: Mildly elevated right hemidiaphragm. Lungs are well aerated. No focal airspace consolidation, pneumothorax or pleural effusion is seen. Remaining lung markings otherwise appears clear. Heart size is within normal limits. Tortuosity involving the thoracic aorta. Osseous thorax appears intact. Mild spondylotic change involving the thoracic spine. RAD/Chest PA and Lateral IMPRESSION: No acute cardiopulmonary process identified. Stable chest Reading Location: [facility]
[2024-04-07] MEDS: dexAMETHasone 10 MG/ML Vial PO.IVFORM (05:21)
[2024-04-07 05:27] VITALS: PULSE 80; RESP 18
[2024-04-07] MEDS: Ipratropium/Albuterol Sulfate 3 ML AMPUL.NEB INHALATION (05:27)
[2024-04-07 06:00] VITALS: BP 123/87; PULSE 62; RESP 18; TEMP 36.8; O2SAT 94
[2024-04-07 06:38] VITALS: BP 133/89; PULSE 71; RESP 18; TEMP 36.7; O2SAT 95
--- NOTE | 2024-04-07 06:39 | EX.ED.DYSGE1 ---
HPI History of Present Illness Chief Complaint: General Illness Informant: patient Narrative Narrative: Patient is a 58-year-old female with past medical history of hypertension COPD and tobacco abuse. 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 She states she has had approximately 3 days of subjective fevers and chills with nasal congestion cough and shortness of breath. She reports her significant other has been sick with similar symptoms as well. She states that despite taking [id number] medications she feels like her symptoms are worsening and secondary to this comes in for evaluation. [facility] Medical History Preventative health care Colon cancer screening Borderline type 2 diabetes mellitus Hypersomnolence Frequent headaches Anemia Atrial fibrillation Asthma-COPD overlap syndrome Seizures Premature atrial contractions Tobacco abuse Palpitations Premature ventricular contraction Aortic stenosis Family history of CVA Paroxysmal atrial fibrillation Hypertension COPD (chronic obstructive pulmonary disease) Multiple sclerosis Home Medications ?Medication ?Instructions ?Recorded ?Last Taken ?Type albuterol sulfate 90 mcg/actuation 2 puff inhalation Q4H PRN 04/26/23 Unknown Rx aerosol inhaler (Ventolin HFA) shortness of breath or wheezing #18 grams lisinopril 10 mg tablet 10 mg PO DAILY bp #90 tabs 04/26/23 Unknown Rx potassium chloride 20 mEq 20 meq PO DAILY supplement #90 tabs 04/26/23 Unknown Rx tablet,extended release(part/cryst) duloxetine 30 mg capsule,delayed 30 mg PO DAILY #90 caps 07/26/23 Unknown Rx release hydrochlorothiazide 25 mg tablet 25 mg PO DAILY blood pressure #90 07/26/23 Unknown Rx tabs hydrocodone-acetaminophen 5-325mg 1 tab PO Q6H PRN PRN Pain 3 days 01/10/24 Unknown Rx 5mg-325mg #10 TABLETS codeine 10 mg-guaifenesin 100 mg/5 10 ml PO 4X/DAY PRN cough 7 days 04/07/24 Unknown Rx mL oral liquid (Guaifenesin AC) #280 mL prednisone 20 mg tablet 40 mg (2 x 20 mg) PO DAILY 5 days 04/07/24 Unknown Rx #10 tabs Allergy/AdvReac Type Severity Reaction Status Date / Time lorazepam (From Ativan) AdvReac Severe Other Verified 04/07/24 04:58 Family History Mother Myocardial infarction Hypertension Breast cancer Arthritis Father CVA (cerebral vascular accident) Myocardial infarction Diabetes CAD (coronary artery disease) Alcoholism Arthritis Depression Hypertension Brother No problems noted. Sister Afib Asthma Lupus Diabetes CVA (cerebral vascular accident) CAD (coronary artery disease) Surgical History History of tonsillectomy and adenoidectomy History of total hysterectomy Social History Smoking Status: Current every day smoker tobacco type: cigarettes how long ago did patient quit smokin, 0.5ppd second hand exposure: Yes alcohol intake: never substance use type: does not use caffeine: Yes Type: coffee what type of physical activity do you participate in: none seatbelt use: always do you feel safe at home: Yes ROS ROS ED Constitutional Constitutional ED: Reports chills, fever(s) and subjective ENT ENT ED: Reports rhinorrhea and sore throat Cardiovascular Cardiovascular: Denies chest pain Respiratory/Chest Respiratory/Chest: Reports cough and dyspnea Gastrointestinal Gastrointestinal: Reports diarrhea; Denies abdominal pain, nausea or vomiting Genitourinary Genitourinary ED: Denies dysuria Musculoskeletal Musculoskeletal: Reports myalgias Integumentary Denies rash Neurologic Neurologic: Reports headache(s) Hematologic/Lymphatic Hematologic/Lymphatic: Denies easy bleeding or easy bruising Allergic/Immunologic Allergic/Immunologic ED: Denies mouth swelling or tongue swelling EXAM Physical Exam Const Vital Signs: 04/07/24 04:59 04/07/24 04:59 04/07/24 05:02 Temperature 98.1 F 98.1 F Temperature Source Oral Oral Pulse Rate 79 62 Respiratory Rate 18 18 Respiratory Effort Short of Breath Respiratory Pattern Normal Blood Pressure 149/87 H 149/87 H Blood Pressure Mean 107 107 Pulse Ox 94 96 Oxygen Delivery Method Room Air Room Air 04/07/24 05:27 04/07/24 06:00 04/07/24 06:38 Temperature 98.2 F 98.1 F Temperature Source Oral Pulse Rate 80 62 71 Respiratory Rate 18 18 18 Respiratory Effort Respiratory Pattern Normal Blood Pressure 123/87 H 133/89 H Blood Pressure Mean 99 103 Pulse Ox 94 95 Oxygen Delivery Method Room Air Positive well nourished, well developed and obese General Appearance ED: well developed; Negative for pallor Nutritional Appearance: obese HEENT HEENT Narrative: Bilateral TMs are retracted but show no secondary changes to suggest infection Nasal mucosa is hyperemic and boggy with enlarged inferior nasal turbinates There is cobblestoning noted in the posterior pharynx consistent with sinus drainage without airway edema or compromise; no secondary findings to suggest infection Eyes PERRL and EOMs intact bilaterally General Eye ED: Negative for scleral icterus Neck supple Resp normal respiratory effort Resp Narrative: Breath sounds are diminished throughout with diffuse expiratory wheeze consistent with history of COPD but no signs of respiratory distress Cardio regular rate and regular rhythm GI non-tender, non-distended and no masses GI Narrative: Soft nontender and nondistended with hyperactive bowel sounds without voluntary guarding or rigidity or pulsatile mass Auscultation: hyperactive bowel sounds Palpation: soft Extremity normal to inspection Extremity Narrative: No asymmetric edema no pitting edema negative Homans' sign bilaterally Neuro oriented x3, CN's II-XII intact bilaterally and no sensory deficits noted Sensorium / Orientation: alert Motor Exam: strength 5/5 throughout Psych mental status grossly normal Skin no rashes or lesions noted General Skin Exam: Negative for jaundice or pallor MDM MDM MDM Narrative Medical decision making narrative: Patient arrived to the ER hypertensive but otherwise with stable vitals. Breath sounds are diminished with diffuse wheeze consistent with COPD and mild exacerbation based on her history and physical exam a potential viral illness. With her exposure at the care home there is high likelihood for COVID versus influenza versus RSV. Patient may also have pneumonia. As she does not have fever or hypoxia I do not feel there is need for further workup other than chest x-ray and viral swab. The patient's viral swab was positive for COVID which correlates with her history and exposure. Chest x-ray revealed no acute lung pathology. After receiving steroids and breathing treatments her breath sounds improved and she remained without any type of hypoxia or respiratory distress. Therefore there is no need for further intervention and she is otherwise safe for discharge with symptomatic care History & Record Review Discussion w/independent historian: Patient Radiography Diagnostic Testing: Clinical Impression(s) from Imaging Studies Chest X-Ray 04/07/24 05:17 IMPRESSION: No acute cardiopulmonary process identified. Stable chest Reading Location: [facility] Chest x-ray as interpreted by the emergency medicine physician reveals no acute infiltrate pneumothorax or pleural effusion Discharge Plan Triage Chief Complaint: General Illness ED Provider: Rickie Crane Dx/Rx/DC Orders Clinical Impression: COVID-19, Tobacco abuse, COPD (chronic obstructive pulmonary disease), Hypertension Instructions: Coronavirus Disease 2019 (COVID-19): Caring for Yourself or Others Prescriptions: New prednisone 20 mg tablet 40 mg PO DAILY 5 Days Qty: 10 0RF codeine-guaifenesin [Guaifenesin AC] 10-100 mg/5 mL liquid 10 ml PO 4X/DAY PRN (Reason: cough) 7 Days Qty: 280 0RF No Action lisinopril 10 mg tablet 10 mg PO DAILY Qty: 90 3RF Ventolin HFA 90 mcg/actuation HFA aerosol inhaler 2 puff INHALATION Q4H PRN (Reason: shortness of breath or wheezing) Qty: 18 2RF potassium chloride 20 mEq tablet,ER particles/crystals 20 meq PO DAILY Qty: 90 1RF hydrochlorothiazide 25 mg tablet 25 mg PO DAILY Qty: 90 1RF duloxetine 30 mg capsule,delayed release(DR/EC) 30 mg PO DAILY Qty: 90 1RF Rx Instructions: Take one tablet by mouth once per day x1 week, then increase to two tablets by mouth once per day hydrocodone-acetaminophen 5-325 mg tablet 1 tab PO Q6H PRN PRN (Reason: Pain) 3 Days Qty: 10 0RF Stand Alone Forms: ED Work / School Excuse Primary Care Provider: Pattie Vaughan Referrals: Pattie Vaughan MD [Primary Care Provider] - Activity Restrictions/Additional Instructions: You tested positive for COVID-19. Secondary to this infection you should be off work for the next 5 days. Continue with Tylenol and or Motrin for fever control. Use the prescribed medication and inhaler to help with shortness of breath and wheeze. Return to the ER should you have any further concerns Print Language: Bengali Disposition Disposition: Home, Self Care Discharge Date/Time: 04/07/24 06:49
[2024-04-07] MEDS: Albuterol Sulfate 8 gm Inhaler (60 puffs) 2 PUFF INHALATION (06:47)
== END 2024-04-07 06:49 | disposition home or self-care (01) ==
PROVIDERS: Emergency Provider Emergency Medicine; PCP Internal Medicine; Visit Provider Emergency Medicine
DX: U07.1 COVID-19 (principal); J44.9 Chronic obstructive pulmonary disease, unspecified; F17.210 Nicotine dependence, cigarettes, uncomplicated; I10 Essential (primary) hypertension; R51.9 Headache, unspecified; E66.9 Obesity, unspecified
CPT/HCPCS: 71046; 87631; 94640; 99282

== ENCOUNTER → 2025-01-14 | Outpatient (CLI) | payer MEDICARE, MEDICAID, SELFPAY ==
[2025-01-14 11:19] LABS: Hematocrit 42.0 % (37-47); Hemoglobin 13.7 g/dL (12.0-15.0); Immature Granulocytes Count 0.030 X10^3/uL (0.0-0.0); Mean Corp Hgb Conc 32.6 g/dL (32-36); Mean Corpuscular Volume 91.9 fL (81-99); Mean Platelet Vol. 10.8 fl (6.2-12.0); NRBC Flagged by Analyzer 0 % (0-5); Platelet Count 142 K/mm3 (150-450); RBC Distribution Width CV 12.6 % (11.6-14.6); RBC Distribution Width SD 42.4 fl (35.1-43.9); Red Blood Count 4.57 M/mm3 (4.2-5.4); White Blood Count 8.8 K/mm3 (4.4-11.0)
[2025-01-14 11:58] LABS: AST(SGOT) 16 U/L (<=31); Alanine Aminotransfer ALT/SGPT 17 U/L (<=34); Albumin, Serum 4.3 g/dL (3.5-5.0); Alkaline Phosphatase 94 U/L (35-104); Anion Gap 11 (5-15); BUN 8 mg/dL (4-19); BUN/Creat Ratio 17.0 RATIO (10-20); Calcium,Total 9.3 mg/dL (7.6-11.0); Carbon Dioxide 25.5 mmol/L (21.0-32.0); Chloride 102 mmol/L (98-108); Cholesterol 129 mg/dL (<=200); Globulin 2.9 g/dL (2.2-4.2); Glucose 202 mg/dL (70-99); Low Density Lipoprotein Calc. 68 mg/dL; Potassium 4.4 mmol/L (3.3-5.1); Triglycerides 259 mg/dL; Very Low Density Lipoprotein 52 mg/dL (5-40); cholesterol:hdl ratio screen 6.79
== END | disposition home or self-care (01) ==
PROVIDERS: PCP Internal Medicine; Referring Provider Nurse Practitioner Family; Visit Provider Nurse Practitioner Family
DX: Z13.220 Encounter for screening for lipoid disorders (principal); I48.20 Chronic atrial fibrillation, unspecified; I63.9 Cerebral infarction, unspecified; Z13.1 Encounter for screening for diabetes mellitus
CPT/HCPCS: 36415; 80053; 80061; 83036; 85025